=== PATIENT | male | born 1940 | race Caucasian/White ===

== ENCOUNTER 2017-04-09 08:48 | Outpatient (CLI) | payer MEDICARE ==
--- NOTE | 2017-04-09 09:44 | PRG ---
DATE OF SERVICE: 04/09/2017 HISTORY: Mr. Gage Tyler is a very pleasant 76-year-old gentleman who presents to the [facility] for evaluation of an ulceration of the right ankle in the region of the medial malleolus. The p samuel was referred to the Wound Center by Dr. Lavon Bonds. Presently, the patient is receiving t reatment for his right ankle ulceration with the application of new boots 1-2 times per week by Home Health. The patient has no complaints today. He denies any fever or chills. PHYSICAL EXAMINATION: VITAL SIGNS: Temperature 97.8, pulse 73, respirations 18, and blood pressure 143/71. EXTREMITIES: The ulceration of the right ankle in the region of the medial malleolus measures appro ximately 3.9 x 3.6 cm. The dimensions of the wound at the time of the patient's last visit were bashir roximately 4.2 x 4.5 cm. Granulation tissue is present within the wound margins. No purulent drain age is associated with the wound. No erythema of the skin surrounding the wound is present. No mac eration of the skin of the periwound is noted. No edema of the right ankle is appreciated on exam t cris. ASSESSMENT AND PLAN: 1. Varicose veins of right lower extremity with ulceration in a boot application of 1-2 times per w [place] will be continued with the assistance of Home Health. MRI of the right ankle with and without c ontrast revealed findings suggestive of chronic osteitis without osteomyelitis of the medial distal tibia. The patient has been seen in consultation by Infectious Diseases. The patient has been told that antimicrobial therapy is not indicated at the present time. Transcutaneous oxygen mapping of the distal right lower extremity obtained previously showed no evidence of hypoxia in the region of the wound. The patient completed a course of Bactrim DS as previously prescribed. Tissue cultures revealed the growth of Enterococcus species Providencia rettgeri and Finegoldia magna. The patient also completed a course of Augmentin 875/125, #20, 1 p.o. b.i.d. x10 days. Providencia rettgeri was sensitive to Bactrim. I will see Mr. Tyler again in four weeks. 2. Hypertension. 3. Paroxysmal atrial fibrillation. 4. Peripheral vascular disease. 5. Renal cell carcinoma. 6. Adenocarcinoma of the prostate. 7. History of spontaneous pneumothorax. 8. Ischemic cardiomyopathy. 8. Coronary artery disease.
[2017-04-09] MEDS ORDERED: Sodium Chloride 0.9% 15 ML NEB ONE (11:11)
== END 2017-04-09 08:49 | disposition home or self-care (01) ==
LOC: WCC 08:48
PROVIDERS: ATTEND Family Medicine
DX: I83.013 Varicose veins of right lower extremity with ulcer of ankle (principal); L97.319 Non-pressure chronic ulcer of right ankle with unspecified severity; I10 Essential (primary) hypertension; I48.0 Paroxysmal atrial fibrillation; C64.9 Malignant neoplasm of unspecified kidney, except renal pelvis; I73.9 Peripheral vascular disease, unspecified; C61 Malignant neoplasm of prostate; I25.5 Ischemic cardiomyopathy; I25.10 Atherosclerotic heart disease of native coronary artery without angina pectoris
CPT/HCPCS: 29581; A4218

== ENCOUNTER 2017-05-07 08:57 | Outpatient (CLI) | payer MEDICARE ==
--- NOTE | 2017-05-07 10:37 | PRG ---
DATE OF SERVICE: 05/07/2017 HISTORY: Mr. Gage Tyler is a very pleasant 76-year-old gentleman who presents to the Wound Ce nter for evaluation of an ulceration of the right ankle in the region of the medial malleolus. The patient was referred to the Wound Center by Dr. Lavon Bonds. Currently, the patient is receiving treatment for his right ankle ulceration with the application of an Unna boot 2 times per week by [facility]. Mr. Tyler has no complaints today. He denies any fever or chills. PHYSICAL EXAMINATION: VITAL SIGNS: Temperature 97.5, pulse 72, respirations 18, and blood pressure 117/60. EXTREMITIES: The ulceration of the right ankle in the region of the medial malleolus measures appro ximately 3.2 x 2.7 cm. The dimensions of the wound at the time of the patient's visit on 04/09/2017 were approximately 3.9 x 3.6 cm. Granulation tissue is present within the wound margins. No purul ent drainage is associated with the wound. No erythema of the skin surrounding the wound is present . No maceration of the skin of the periwound is noted. No edema of the right ankle is appreciated on exam today. ASSESSMENT AND PLAN: 1. Varicose veins of right lower extremity with ulceration. Unna boot application will be continue d at a frequency of once a week with the assistance of Home Health. MRI of the right ankle with and without contrast revealed findings suggestive of chronic osteitis without osteomyelitis of the medi al distal tibia. The patient has been seen in consultation by Infectious Diseases. The patient has been told that antimicrobial therapy is not indicated at the present time. Transcutaneous oxygen m apping of the distal right lower extremity obtained previously showed no evidence of hypoxia in the region of the wound. I will see Mr. Tyler again in four weeks. 2. Hypertension. 3. Paroxysmal atrial fibrillation. 4. Peripheral vascular disease. 5. Renal cell carcinoma. 6. Adenocarcinoma of the prostate. 7. History of spontaneous pneumothorax. 8. Ischemic cardiomyopathy. 9. Coronary artery disease.
[2017-05-07] MEDS ORDERED: Sodium Chloride 0.9% 15 ML NEB ONE (17:29)
== END 2017-05-07 08:58 | disposition home or self-care (01) ==
LOC: WCC 08:57
PROVIDERS: ATTEND Family Medicine
DX: I83.018 Varicose veins of right lower extremity with ulcer other part of lower leg (principal); C64.9 Malignant neoplasm of unspecified kidney, except renal pelvis; C61 Malignant neoplasm of prostate; I10 Essential (primary) hypertension; I48.0 Paroxysmal atrial fibrillation; I73.9 Peripheral vascular disease, unspecified; I42.9 Cardiomyopathy, unspecified; I25.10 Atherosclerotic heart disease of native coronary artery without angina pectoris
CPT/HCPCS: 97602; A4218

== ENCOUNTER 2017-05-13 05:34 | Observation (INO) | payer MEDICARE ==
[2017-05-13 06:15] LABS: #Basophils 0.1 thou/uL (0.0-0.2); #Eosinphils 0.1 thou/uL (0.0-0.7); #Lymphocytes 1.7 thou/uL (1.20-3.40); #Monocytes 0.8 thou/uL (0.11-0.59); #Neutrophils 3.5 thou/uL (1.40-6.50); %Basophils 1.3 % (0.0-1.0); %Eosinophils 2.2 % (0.0-10.0); %Lymphocytes 27.9 % (21.0-51.0); %Monocytes 12.2 % (0.0-10.0); Hematocrit 41.3 % (42.0-52.0); Mean Platelet Volume 7.6 fL (7.4-10.4); Red Blood Cell (RBC) Count 4.25 mill/uL (4.70-6.10); White Blood Cell (WBC) Count 6.2 thou/uL (4.8-10.8)
[2017-05-13 06:29] LABS: ALT (SGPT) 13 U/L (8-55); AST (SGOT) 27 U/L (5-34); Alkaline Phosphatase 193 U/L (40-150); Anion Gap 19 mmol/L (10-20); BUN (Urea Nitrogen) 13 mg/dL (8.4-25.7); Bilirubin, Total 0.8 mg/dL (0.2-1.2); Calc. Creatinine Clearance 0 mL/min (70-130); Calcium 8.8 mg/dL (7.8-10.44); Carbon Dioxide 16 mmol/L (23-31); Chloride 96 mmol/L (98-107); Estimated GFR-MDRD 65; Globulin 3.3 g/dL (2.4-3.5); Lipase 35 U/L (8-78); Magnesium 1.8 mg/dL (1.6-2.6); Protein, Total 7.2 g/dL (5.8-8.1)
[2017-05-13] MEDS ORDERED: Aspirin 325 MG TAB ONE (06:29)
[2017-05-13 06:31] LABS: Troponin I Less than 0.010 ng/mL (< 0.028)
[2017-05-13] MEDS ORDERED: Nitroglycerin 2% Ointment 1 INCH/1 GM Packet ONE (06:51)
[2017-05-13] MEDS ORDERED: Furosemide 40 MG/4 ML VIAL ONE (06:51)
[2017-05-13] MEDS ORDERED: hydrALAZINE 20 MG/ML VIAL SLOW IVP PRN (07:29)
[2017-05-13] MEDS ORDERED: Famotidine/PF 20 mg/2ml Vial ONE (07:31)
[2017-05-13] MEDS ORDERED: Water For Inject, Bacteriostat 30 ML ONE (07:31)
[2017-05-13] MEDS ORDERED: diphenhydrAMINE 50 MG/ML VIAL ONE (07:31)
[2017-05-13] MEDS ORDERED: methylPREDNISolone Sod Succ/PF 125 MG/2 ML VIAL ONE (07:31)
[2017-05-13] MEDS ORDERED: Benzonatate 100 MG CAP ONE (07:42)
--- NOTE | 2017-05-13 08:11 | RAD ---
CHEST TWO VIEWS: HISTORY: Dyspnea. COMPARISON: Chest, two views, from 10/11/2015. FINDINGS: There is an abnormal extra density along the right heart border. There is also a posterior lower de nsity projecting over the lower thoracic spine. The lungs are osteopenic. There are multiple areas of scarring in the lung apices. IMPRESSION: 1. Accessory density along the right heart border. CT correlation is recommended. 2. Posterior density along the lower thoracic spine. This should also be further interrogated with CT examination. 3. Multiple pleural and parenchymal densities throughout the lungs. 4. Interstitial prominence of the right lower lobe. There is concern for possible obstructing mass with post obstructive pneumonitis. CODE T CODE LN POS: MED
[2017-05-13 09:06] LABS: PTT 35.1 SEC (22.9-36.1); Prothrombin Time 14.8 SEC (12.0-14.7)
--- NOTE | 2017-05-13 09:09 | CT ---
CT ANGIO CHEST WITH IV CONTRAST: HISTORY: Dyspnea. TECHNIQUE: Multiple axial tomograms obtained through the chest with pulmonary angio protocol with multiplanar r econstruction and 3D post processing. FINDINGS: There are small bilateral pleural effusions. Mild bibasilar atelectasis. The pulmonary arteries are well opacified. There is evidence of a pulmonary embolus in the single r ight lower lobe pulmonary artery. There is diffuse alveolar infiltrate seen throughout the right middle lobe, with hazy alveolar opaci ty, with some ground glass and nodular parenchymal opacity noted in the right middle lobe. IMPRESSION: 1. Evidence of a single embolus in the right lower lobe pulmonary artery. 2. Right middle lobe infiltrate. 3. Small bilateral pleural effusion. Findings were relayed to Dr. Soares at the time of the dictation. CODE CR POS: DINORAH
[2017-05-13] MEDS ORDERED: hydrALAZINE 20 MG/ML VIAL ONE (09:23)
[2017-05-13] MEDS ORDERED: Ondansetron ODT 4 MG TAB PO PRN (10:26)
[2017-05-13] MEDS ORDERED: Lorazepam 1 MG TAB PO PRN (10:26)
[2017-05-13] MEDS ORDERED: Enoxaparin Sodium 40 MG/0.4 ML SYRINGE SC SCH (10:26)
[2017-05-13] MEDS ORDERED: HYDROcodone/Acetaminophen 5/325 mg Tablet PO PRN (10:26)
[2017-05-13] MEDS ORDERED: Acetaminophen 325 MG TAB PO PRN (10:26)
[2017-05-13] MEDS ORDERED: HYDROcodone/Acetaminophen 10/325 mg Tablet PO PRN (10:26)
[2017-05-13] MEDS ORDERED: Albuterol Sulfate 2.5 mg/3 ml Neb NEB PRN (10:26)
[2017-05-13 10:39] VITALS: BMI 22.8
[2017-05-13 11:15] LABS: Troponin I Less than 0.010 ng/mL (< 0.028)
[2017-05-13] MEDS ORDERED: Aspirin 81 mg Enteric Coated Tablet PO SCH (11:45)
[2017-05-13] MEDS ORDERED: Carvedilol 6.25 MG TAB PO SCH (11:45)
[2017-05-13] MEDS ORDERED: Dronedarone HCl 400 MG TAB PO SCH (11:45)
[2017-05-13] MEDS: Nitroglycerin 2% Ointment 1 INCH/1 GM Packet TOP SCH ×2 (11:57→17:21)
[2017-05-13] MEDS ORDERED: Levothyroxine Sodium 50 MCG TAB PO SCH (12:00)
[2017-05-13] MEDS ORDERED: Rivaroxaban 15 MG TAB PO SCH (12:00)
[2017-05-13] MEDS: Furosemide 40 MG/4 ML VIAL SLOW IVP SCH ×2 (12:06→17:21)
[2017-05-13] MEDS ORDERED: ISOVUE-370 76%-LOCM 1 ML ONE (15:58)
--- NOTE | 2017-05-13 17:11 | HP ---
DATE OF ADMISSION: 05/13/2017 PRIMARY CARE PHYSICIAN: Stefano Bradshaw M.D. PRIMARY INSURANCE VERIFICATION REPRESENTATIVE: Dr. Lavon Bonds M.D. CHIEF COMPLAINT: Shortness of breath. HISTORY OF PRESENT ILLNESS: Mr. Tyler is a pleasant 76-year-old white male, who describes a 2-week history of increasing shortness of breath. 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 He said it has increased over the last 2 weeks and really worse over t he last 48 hours or so. He has had increased dyspnea on exertion and a nonproductive cough. He den ies any wheezing, but does have some rattling present in his lower chest. He has had no chest pain, no fevers or chills, no nausea or vomiting, no diarrhea or constipation, no GI bleeding, and no hem optysis. He presented to the emergency department and was found to have fairly normal labs, bicarbonate was l ow, BNP was 1500, and he was subsequently admitted for possible CHF. A chest x-ray, to me, looks li ke right lower lobe pneumonia. CT angiogram was ordered by the ER doctor, after I visited the patie nt, and was actually found to have right middle lobe pneumonia and a right lower lobe pulmonary samuel ry embolus. The patient was breathing better when I saw him; he was satting 98% on room air. PAST MEDICAL HISTORY: 1. Alcohol abuse, drinks more than 10 drinks a day. 2. Coronary artery disease. He has had multiple stents in the past. 3. Peripheral vascular disease, status post stent to his right leg several months ago. 4. History of chronic atrial fibrillation. 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 Hyperlipidemia. 6. Renal cell carcinoma, status post nephrectomy. 7. Hypothyroidism. 8. BPH. 9. Gastroesophageal reflux disease. 10. History of prostate cancer, status post TURP. PAST SURGICAL HISTORY: 1. Coronary artery bypass grafting x4 vessels sometime around 1994. 2. Right nephrectomy he thinks around 1999. 3. ORIF of right ankle fracture in 11/2014 with nonhealing wound. 4. Right leg arterial stent. HOME MEDICATIONS: 1. Coreg 12.5 mg p.o. b.i.d. 2. Levothyroxine 50 mcg daily. 3. Pentoxifylline 400 mg daily. 4. Multaq 200 mg p.o. b.i.d. 5. Tamsulosin 0.4 mg p.o. at bedtime. 6. Atorvastatin 20 mg p.o. at bedtime. 7. Protonix 40 mg daily. 8. Aspirin 81 mg daily. 9. Docusate 100 mg daily. ALLERGIES: Possibly to, 1. AMIODARONE. 2. IODINE, a long time ago. FAMILY HISTORY: Negative for clotting or bleeding disorder, no immune dysfunction. SOCIAL HISTORY: Negative for alcohol. He had smoked past tobacco for 9 years from the age of [age] , upwards of 2 packs per day. He used no IV drugs. He is . His accompanies him. REVIEW OF SYSTEMS: A 10-point review of systems was performed, negative for all other systems excep t as stated as per HPI. PHYSICAL EXAMINATION: VITAL SIGNS: Temperature 97.5, pulse 78, blood pressure 175/97, respiratory rate 15, satting 100% o n room air. He is 98% on room air when I saw him. GENERAL: He is awake. He is alert. He is oriented x3. He is an old thin white male, appears to b e in no acute distress. HEENT: Normocephalic, atraumatic. Pupils equal, round, and reactive to light bilaterally, Mucous m embranes moist. He had no visible lesion. No thrush. NECK: Supple, without lymphadenopathy, JVD, thyromegaly. He has normal carotid upstrokes. CARDIOVASCULAR: Normal S1 and decreased S2. He has a holosystolic murmur best heard at the right u pper sternal border. The murmur does not radiate. LUNGS: Have a prolonged expiratory phase with diffuse expiratory wheezes. He has got crackles pres ent in the right posterior and middle lung field. Left side is clear. ABDOMEN: Soft. It is nontender and nondistended. He has no masses, no organomegaly. Normoactive bowel sounds are heard. EXTREMITIES: Show no cyanosis and no clubbing. He has got edema of the right lower extremity. He is currently wrapped in Ismael wrap. This wrap was removed revealing a medial surgical wound that has been slow to heal, but is granulating well at this point. SKIN: Otherwise warm, moist, and well perfused without any other rashes or lesions. MUSCULOSKELETAL: Exam is normal to inspection. He has no inflamed joints, no palpable joint effusi ons. NEUROLOGIC: Cranial nerves II-XII are grossly intact without any focal neurologic deficits. Telemetry monitoring shows a controlled atrial fibrillation. LABORATORY DATA: Basic metabolic profile showed a sodium low at 126, bicarbonate low at 16, creatin ine of 1.10, otherwise normal. His troponin I was negative. TSH elevated at 7.98 and BNP elevated at 1549. Liver function normal. CBC showed a white count of 6.2, hemoglobin 13.3, hematocrit 40.3, and platelet count is 178,000. A chest x-ray shows a diffuse bilateral edema, and a possible right lower lobe infiltrate superimposed. A CT angiogram confirmed the right-sided infiltrate/opacity, but also showed a right lower lobe pulm onary artery embolus. ASSESSMENT AND PLAN: 1. Acute on chronic congestive heart failure: I am not sure it has been previously diagnosed or no t. We will get a 2D echocardiogram. The BNP is elevated. We will schedule him with some IV Lasix and we will watch him overnight. Repeat BNP in the morning. Follow up on the results of the echoca rdiogram. Later in the day, I found the patient normally was supposed to be on Lasix daily, but has been off of that for over a month. I have to check with his primary doctor to find out why. 2. Acute exacerbation of chronic obstructive pulmonary disease: Patient has no previous diagnosis, but given his history, likely he has some underlying chronic obstructive pulmonary disease. I will place him on steroids and nebulizer treatments. We will follow up on this in the morning. 3. Right lower lobe pneumonia: Community-acquired. We will start the patient on levofloxacin 500 mg daily. 4. Alcohol abuse: No signs of withdrawal at this time. 5. Hypertension: We will get serial cardiac biomarkers and continue his home medications. 6. History of chronic atrial fibrillation: Not currently on anticoagulation. Certainly could be a source for his pulmonary embolus. We will start him on Xarelto once he gets to the floor. 7. Right lower lobe pulmonary embolus: Xarelto as above. 8. History of hyperlipidemia: We will continue his atorvastatin. 9. Hypothyroidism, on levothyroxine. 10. Benign prostatic hypertrophy, on Flomax. 11. Gastroesophageal reflux disease, on Protonix. Patient does not meet inpatient status at this point. Place him on observation and watch him overni ght. If he is better, maybe we will send him home, if not then we will admit at that point.
[2017-05-13] MEDS: Carvedilol 6.25 MG TAB PO SCH (17:20)
[2017-05-13] MEDS: Dronedarone HCl 400 MG TAB PO SCH (17:21)
[2017-05-13 19:33] LABS: Troponin I 0.014 ng/mL (< 0.028)
[2017-05-13] MEDS ORDERED: Tamsulosin HCl 0.4 MG CAP PO SCH (21:00)
[2017-05-13] MEDS ORDERED: Atorvastatin Calcium 20 MG TAB PO SCH (21:00)
[2017-05-13] MEDS: Rivaroxaban 15 MG TAB PO SCH (22:16)
[2017-05-14] MEDS: Nitroglycerin 2% Ointment 1 INCH/1 GM Packet TOP SCH ×2 (00:28→09:51)
[2017-05-14] MEDS: Furosemide 40 MG/4 ML VIAL SLOW IVP SCH (00:30)
[2017-05-14 04:35] LABS: #Basophils 0.1 thou/uL (0.0-0.2); #Lymphocytes 0.7 thou/uL (1.20-3.40); #Monocytes 0.2 thou/uL (0.11-0.59); #Neutrophils 4.5 thou/uL (1.40-6.50); %Eosinophils 0.1 % (0.0-10.0); %Lymphocytes 13.3 % (21.0-51.0); %Monocytes 3.3 % (0.0-10.0); Hematocrit 41.1 % (42.0-52.0); Mean Platelet Volume 7.4 fL (7.4-10.4); Red Blood Cell (RBC) Count 4.33 mill/uL (4.70-6.10); White Blood Cell (WBC) Count 5.4 thou/uL (4.8-10.8)
[2017-05-14 04:51] LABS: Anion Gap 17 mmol/L (10-20); BUN (Urea Nitrogen) 25 mg/dL (8.4-25.7); Calc. Creatinine Clearance 36 mL/min (70-130); Carbon Dioxide 25 mmol/L (23-31); Chloride 90 mmol/L (98-107); Estimated GFR-MDRD 45
[2017-05-14] MEDS ORDERED: Levothyroxine Sodium 50 MCG TAB PO SCH (06:00)
[2017-05-14 07:59] VITALS: TEMP 97.7
[2017-05-14] MEDS ORDERED: Aspirin 81 mg Enteric Coated Tablet PO SCH (09:00)
[2017-05-14] MEDS: Rivaroxaban 15 MG TAB PO SCH (09:39)
[2017-05-14] MEDS: Dronedarone HCl 400 MG TAB PO SCH (09:40)
[2017-05-14] MEDS: Carvedilol 6.25 MG TAB PO SCH (09:44)
[2017-05-14 09:46] VITALS: BP 152/83
--- NOTE | 2017-05-14 12:53 | DIS ---
DATE OF ADMISSION: 05/13/2017 DATE OF DISCHARGE: 05/14/2017 DISCHARGE DIAGNOSES: 1. Acute right lower lobe pulmonary artery embolism. 2. Acute exacerbation of chronic obstructive pulmonary disease. 3. Acute diastolic congestive heart failure. 4. Pulmonary hypertension. 5. Alcohol abuse. 6. Right lower lobe community-acquired pneumonia. CONSULTATIONS: None. PROCEDURES: 2D echocardiogram on 05/13/2017. HOSPITAL COURSE: Mr. Tyler is a pleasant 76-year-old white male who presented to the emergency dep artment for increasing shortness of breath over 2-week period. 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 There he had diffuse expiratory and inspiratory wheezing, he had an elevated BNP at 1500 and chest x -ray showed pulmonary edema and a possible right-sided pneumonia. Incidentally, a CT angiogram was ordered, but we were called for admission. HOSPITAL COURSE: The patient was seen and examined in the ER, the patient looked relatively well. He did have diffuse expiratory and inspiratory wheezing and crackles. He had trace edema. He was admitted for diagnosis of acute COPD exacerbation with community-acquired pneumonia and possi ble CHF exacerbation. CT angiogram was ordered and was followed up on and did show a right lower lo be pulmonary artery embolus. The patient was continued on antibiotics, IV steroids, nebulizer treat ments, Lasix, and was started on Xarelto 15 mg b.i.d. for 7 days to transition to 20 mg daily. On further conversation with the patient, it was noted that he was supposed to be on Lasix daily, bu t has run out over a month ago, at one time been on Xarelto was taken off because he had some hematu hiren. He had no fevers or chills, minimal cough without sputum production. No nausea, vomiting, diarrhea, constipation. Overnight, he did well and he was able to get up with the nurses and walk without dropping his oxyge n saturations and remained 90%-100% on room air. His breathing was markedly improved and he was sta ble for discharge with outpatient followup. PHYSICAL EXAMINATION: The patient was seen and examined on the day of discharge. Discharge plan an d disposition was discussed with the patient, his , face to face at the bedside. DISCHARGE MEDICATIONS: 1. Albuterol sulfate 90 mcg inhaler 1-2 puffs every 4 hours as needed for shortness of breath. A p rescription for one inhaler with 2 refills sent. 2. Combivent inhaler 2 puffs q.i.d., prescription for one inhaler with 2 refills sent. 3. Levofloxacin 500 mg p.o. daily for 6 more days. Prescription sent. 4. Xarelto starter pack take 50 mg twice a day for a total of 7 days, then 20 mg daily thereafter. 5. Flomax 0.4 mg p.o. at bedtime. 6. Prednisone 10 mg tablets, 40 mg daily to decrease by 10 mg every third day until he is tapered o ff. Prescription sent. 7. Lipitor 20 mg p.o. at bedtime. 8. Carvedilol 12.5 mg p.o. b.i.d. 9. Multaq 200 mg p.o. b.i.d. 10. Advil 40 mg p.o. b.i.d. 11. Levothyroxine 50 mcg daily. 12. Protonix 40 mg daily. 13. Pentoxifylline 400 mg daily. FOLLOWUP APPOINTMENTS 1. PCP within a week. 2. He is supposed to see his vascular surgeon, Dr. Bonds in a week or two. 3. Referral to a tubing tester as soon as feasible. DISCHARGE CONDITION: Stable. DISPOSITION: Being discharged home via private vehicle. INSTRUCTIONS: To return to the emergency department for increased shortness of breath, worsening co ndition, uncontrollable fevers, or chest pain.
--- NOTE | 2017-05-16 20:12 | EKG ---
Test Reason : SOB Blood Pressure : / mmHG Vent. Rate : 078 BPM Atrial Rate : 057 BPM P-R Int : 000 ms QRS Dur : 120 ms QT Int : 450 ms P-R-T Axes : 000 086 139 degrees QTc Int : 513 ms Atrial fibrillation with premature ventricular or aberrantly conducted complexes Right bundle branch block Abnormal ECG Confirmed by AMARI KENNEDY D.O. ([id number]), assignment editor PAULINA DENNY ([id number]) on 05/16/2017 8:11:52 PM Referred By: Confirmed By:AMARI KENNEDY D.O.
== END 2017-05-14 12:08 | disposition home or self-care (01) ==
LOC: ERS 05:34 → 2SW 07:18
PROVIDERS: ADMIT Internal Medicine Infectious Disease; ATTEND Internal Medicine Infectious Disease
DX: I26.99 Other pulmonary embolism without acute cor pulmonale (principal); J44.1 Chronic obstructive pulmonary disease with (acute) exacerbation; I27.20 Pulmonary hypertension, unspecified; F10.10 Alcohol abuse, uncomplicated; J18.9 Pneumonia, unspecified organism; R60.9 Edema, unspecified; I25.10 Atherosclerotic heart disease of native coronary artery without angina pectoris; I73.9 Peripheral vascular disease, unspecified; E03.9 Hypothyroidism, unspecified; N40.0 Benign prostatic hyperplasia without lower urinary tract symptoms; K21.9 Gastro-esophageal reflux disease without esophagitis; I48.2 Chronic atrial fibrillation; F17.210 Nicotine dependence, cigarettes, uncomplicated; I50.33 Acute on chronic diastolic (congestive) heart failure; I11.0 Hypertensive heart disease with heart failure; Z79.899 Other long term (current) drug therapy; Z88.8 Allergy status to other drugs, medicaments and biological substances; Z91.041 Radiographic dye allergy status; Z95.1 Presence of aortocoronary bypass graft; Z90.5 Acquired absence of kidney; Z90.79 Acquired absence of other genital organ(s); Z98.890 Other specified postprocedural states; Z85.46 Personal history of malignant neoplasm of prostate; Z85.528 Personal history of other malignant neoplasm of kidney; Z87.81 Personal history of (healed) traumatic fracture
CPT/HCPCS: 71020; 71275; 80048; 82553 ×2; 83690; 83735; 83880; 84484 ×2; 85025; 85610; 85730; 93005; 93306; 94640 ×3; 96374; 96375 ×2; 96376 ×2; 97139 ×2; 99285; G0378; 36415; 80053; 84443; A4216; J0360; J1200; J1940; J2920; J2930; J7620; Q0162; S0028

== ENCOUNTER 2017-05-28 08:55 | Outpatient (CLI) | payer MEDICARE ==
[~2017-05-28 08:55] MED LIST: Sodium Chloride 0.9% 15 ML NEB ONE
--- NOTE | 2017-05-28 10:17 | PRG ---
DATE OF SERVICE: 05/28/2017 HISTORY: Mr. Gage Tyler is a very pleasant 76-year-old gentleman who presents to the [facility] for evaluation of an ulceration of the right ankle in the region of the medial malleolus. The pa karie was referred to the Wound Center by Dr. Lavon Bonds. Presently, the patient is receiving tejinder atment for his right ankle ulceration with the application of an Unna boot once a week by Home Health . The patient has no complaints today. He denies any fever or chills. Since the patient's last vis it to the Wound Center, Mr. Tyler was admitted to [facility] for a right lowe r lobe pulmonary artery embolism. The patient is now taking Xarelto. PHYSICAL EXAMINATION: VITAL SIGNS: Temperature 97.4, pulse 81, respirations 18, blood pressure 124/58. EXTREMITIES: The ulceration of the right ankle in the region of the medial malleolus measures approx imately 2.5 x 2.2 cm. The dimensions of the wound at the time of the patient's visit on 05/07/2017 w ere approximately 3.2 x 2.7 cm. Granulation tissue is present within the wound margins. No purulent drainage is associated with the wound. No erythema of the skin surrounding the wound is present. N o maceration of the skin of the delta-wound is noted. No significant edema of the right foot or lower leg is present on exam today. ASSESSMENT AND PLAN: 1. Varicose veins of right lower extremity with ulceration. Unna boot application will be continued at a frequency of once per week with the assistance of Home Health. I will see Mr. Tyler again in four weeks. 2. Hypertension. 3. Paroxysmal atrial fibrillation. 4. Peripheral vascular disease. 5. Renal cell carcinoma. 6. Adenocarcinoma of the prostate. 7. History of spontaneous pneumothorax. 8. Ischemic cardiomyopathy. 9. Coronary artery disease.
== END 2017-05-28 08:56 | disposition home or self-care (01) ==
LOC: WCC 08:55
PROVIDERS: ATTEND Family Medicine
DX: I83.013 Varicose veins of right lower extremity with ulcer of ankle (principal); I10 Essential (primary) hypertension; I48.0 Paroxysmal atrial fibrillation; I73.9 Peripheral vascular disease, unspecified; C64.9 Malignant neoplasm of unspecified kidney, except renal pelvis; C61 Malignant neoplasm of prostate; I25.5 Ischemic cardiomyopathy; I25.10 Atherosclerotic heart disease of native coronary artery without angina pectoris
CPT/HCPCS: 97602; A4218

== ENCOUNTER 2017-06-25 08:30 | Outpatient (CLI) | payer MEDICARE ==
[~2017-06-25 08:30] MED LIST changes: +Lidocaine 2% Jelly 5 ML TUBE ONE
--- NOTE | 2017-06-25 09:30 | PRG ---
DATE OF SERVICE: 06/25/2017 HISTORY: Mr. Walter. Laurence Tyler is a very pleasant 76-year-old gentleman who presents to the Wound Ce nter for evaluation of an ulceration of the right ankle in the region of the medial malleolus. 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 Lavon Bonds. Currently, the patient is receiving tr eatment for his right ankle ulceration with the application of an Unna boot once a week by home healt h. Mr. Tyler has no complaints today. He denies any fever or chills. The patient was recently adm it[facility] to [facility] for a right lower lobe pulmonary artery embolism. The pat ient continues to take Xarelto. PHYSICAL EXAMINATION: VITAL SIGNS: Pulse 75, respirations 16, and blood pressure 153/80. EXTREMITIES: The ulceration of the right ankle in the region of the medial malleolus measures approx imately 2.1 x 1.5 cm. The dimensions of the wound at the time of the patient's visit on 05/28/2017 w ere approximately 2.5 x 2.2 cm. Granulation tissue is present within the wound margins. No purulent drainage is associated with the wound. No erythema of the skin surrounding the wound is present. N o maceration of the skin of the periwound is noted. No significant edema of the right foot or lower leg is present on exam today. ASSESSMENT AND PLAN: 1. Varicose veins of right lower extremity with ulceration. Unna boot application will be continued at a frequency of once per week with the assistance of Home Health. I will see Mr. Tyler again in four weeks. 2. Hypertension. 3. Paroxysmal atrial fibrillation. 4. Peripheral vascular disease. 5. Renal cell carcinoma. 6. Adenocarcinoma of the prostate. 7. History of spontaneous pneumothorax. 8. Ischemic cardiomyopathy. 9. Coronary artery disease.
== END 2017-06-25 08:31 | disposition home or self-care (01) ==
LOC: WCC 08:30
PROVIDERS: ATTEND Family Medicine
DX: I83.018 Varicose veins of right lower extremity with ulcer other part of lower leg (principal); L97.919 Non-pressure chronic ulcer of unspecified part of right lower leg with unspecified severity; I48.0 Paroxysmal atrial fibrillation; I73.9 Peripheral vascular disease, unspecified; C64.9 Malignant neoplasm of unspecified kidney, except renal pelvis; C61 Malignant neoplasm of prostate; I25.5 Ischemic cardiomyopathy; I25.10 Atherosclerotic heart disease of native coronary artery without angina pectoris; I10 Essential (primary) hypertension
CPT/HCPCS: 97602; A4218

== ENCOUNTER 2017-07-25 06:20 | Inpatient (IN) | payer MEDICARE ==
[2017-07-25 07:16] LABS: Hemoglobin 11.4 g/dL (14.0-18.0); Mean Corpuscular HGB CONC 31.7 g/dL (32.0-36.0); Mean Corpuscular Hemoglobin 27.5 pg (27.0-31.0); Mean Corpuscular Volume 86.7 fl (80.0-94.0); Mean Platelet Volume 9.6 fL (7.4-10.4); Platelet Count 151 thou/uL (130-400); RBC Distribution Width 17.6 % (11.5-14.5); Red Blood Cell (RBC) Count 4.17 mill/uL (4.70-6.10); White Blood Cell (WBC) Count 3.6 thou/uL (4.8-10.8)
[2017-07-25 07:29] LABS: CKMB 1.6 ng/mL (0-6.6); Troponin I 0.017 ng/mL (< 0.028)
[2017-07-25 07:33] LABS: ALT (SGPT) 11 U/L (8-55); AST (SGOT) 28 U/L (5-34); Albumin 4.1 g/dL (3.4-4.8); Alkaline Phosphatase 103 U/L (40-150); Anion Gap 18 mmol/L (10-20); BUN (Urea Nitrogen) 18 mg/dL (8.4-25.7); Bilirubin, Total 0.9 mg/dL (0.2-1.2); CK (CPK) 126 U/L (30-200); Calc. Creatinine Clearance 0 mL/min (70-130); Calcium 9.1 mg/dL (7.8-10.44); Carbon Dioxide 18 mmol/L (23-31); Chloride 95 mmol/L (98-107); Estimated GFR-MDRD 54; Globulin 2.6 g/dL (2.4-3.5); Glucose 92 mg/dL (83-110); Potassium 4.7 mmol/L (3.5-5.1); Protein, Total 6.7 g/dL (5.8-8.1); Sodium 126 mmol/L (136-145)
[2017-07-25 07:40] LABS: INR-International Normal Ratio 2.3; PTT 46.8 SEC (22.9-36.1); Prothrombin Time 25.7 SEC (12.0-14.7)
[2017-07-25 07:44] LABS: Anisocytosis SLIGHT = 6-15 cells (100X) (0-5/hpf); Band 1 % (5-11); Hypochromia SLIGHT = 6-15 cells (100X) (0-5/hpf); Lymphocytes 42 % (21-51); MDiff Complete? YES; Monocytes 7 % (0-10); Neutrophil 50 % (42-75); PLT Morphology Comment Appears Adequate; Polychromasia SLIGHT = 2-3 cells (100X) (0-2/hpf)
[2017-07-25] MEDS ORDERED: Albuterol Sulfate 2.5 mg/3 ml Neb ONE (09:36)
[2017-07-25] MEDS ORDERED: Albuterol Sulfate 2.5 mg/0.5 ml Neb ONE (09:36)
[2017-07-25] MEDS ORDERED: Acetaminophen 325 MG TAB PO PRN (12:46)
[2017-07-25] MEDS ORDERED: Ondansetron HCl/PF 4 MG/2 ML Vial IVP PRN (12:46)
[2017-07-25] MEDS ORDERED: Ondansetron ODT 4 MG TAB SL PRN (12:46)
[2017-07-25] MEDS ORDERED: Sodium Chloride 0.9% 1,000 ML IV SCH (13:00)
[2017-07-25] MEDS ORDERED: hydrALAZINE 20 MG/ML VIAL SLOW IVP PRN (14:46)
[2017-07-25] MEDS ORDERED: cloNIDine 0.1 MG TAB PO PRN (14:46)
[2017-07-25] MEDS ORDERED: Diabetic Tussin 200 MG/10 ML UDCUP PO PRN (14:46)
[2017-07-25] MEDS ORDERED: Ondansetron ODT 4 MG TAB PO PRN (14:46)
[2017-07-25] MEDS ORDERED: PROVENTIL INHALER 6.7 G (200 INHALATIONS) INH PRN (15:00)
--- NOTE | 2017-07-25 15:40 | HP ---
DATE OF ADMISSION: 07/25/2017 PRIMARY CARE PHYSICIAN: Stefano Bradshaw M.D. CHIEF COMPLAINT: Shortness of breath and body aches. HISTORY OF PRESENT ILLNESS: This is a 76-year-old male who presents to [facility] complaining of 3-4 day history of shortness of breath, cough, body aches, general weak ness and malaise. The patient states the symptoms began somewhat insidiously with increased cough, c hest tightness, and increased use of his nebulizer treatments at home. The patient denies any measur ed fever, but states he felt warm. The patient apparently sought medical care at his primary care pr ovider's office at which point patient was placed on Augmentin. The patient states he has been on th e antibiotic therapy for approximately 48 hours, but felt like his symptoms progressed. The patient denied any known sick contacts or exposure history and states his immunizations are current including influenza vaccine. The patient admits to some productive cough, but no blood in the sputum. The pa tient denies any change to his bowel habits. Patient admits to associated poor appetite, decreased e nergy level and ambulation at home. The patient denied any recent falls, unilateral weakness, diffic ulty with speech or urination. The patient was notably admitted to [facility] in 05/2017, diagnosed with community-acquired right lower lobe pneumonia in addition to a right lowe r lobe pulmonary embolus. The patient was treated with Xarelto as well as antibiotic therapy for dawit pected pneumonia. In the emergency room, the patient underwent general evaluation with influenza caryn al swab positive for influenza A. The patient received IV normal saline, bronchodilator therapy and was transferred to the medical floor for evaluation. PAST MEDICAL HISTORY: 1. History of alcohol abuse. 2. Coronary artery disease. 3. Peripheral vascular disease. 4. History of chronic atrial fibrillation. 5. Right lower lobe pulmonary artery embolism. 6. Hyperlipidemia. 7. Renal cell carcinoma, status post nephrectomy. 8. Hypothyroidism. 9. Benign prostatic hypertrophy. 10. Gastroesophageal reflux disease. 11. Diastolic dysfunction with preserved ejection fraction of 50%-55%. 12. History of prostate cancer, status post TURP. PAST SURGICAL HISTORY: 1. Status post coronary artery bypass grafting x4 vessels. 2. Status post right nephrectomy. 3. Status post open reduction and internal fixation of right ankle fracture. 4. Status post right lower extremity arterial stent placement. CURRENT MEDICATIONS: 1. ProAir RespiClick 90 mcg inhaled q.4 hours p.r.n. 2. Augmentin 500/125 mg 1 tab p.o. b.i.d. 3. Lipitor 20 mg p.o. at bedtime. 4. Coreg 12.5 mg p.o. b.i.d. 5. Multaq 200 mg p.o. b.i.d. 6. Lasix 20 mg 1 tab p.o. daily. 7. Combivent metered dose inhaler 2 puffs inhaled q.i.d. 8. Levothyroxine 50 mcg 1 tab p.o. daily. 9. Protonix 40 mg 1 tab p.o. daily. 10. Pentoxifylline 400 mg p.o. daily. 11. Potassium chloride 20 mEq p.o. daily. 12. Xarelto, dose unknown. 13. Flomax 0.4 mg p.o. at bedtime. ALLERGIES: AMIODARONE and IODINE. FAMILY HISTORY: No inheritable diseases per patient report. SOCIAL HISTORY: , residing in [place], [place]. Remote history of tobacco use. Alcohol use d aily. No illicit drug use. REVIEW OF SYSTEMS: The following complete review of systems was negative, unless otherwise mentioned in the HPI or below: Constitutional: Weight loss or gain, ability to conduct usual activities. Skin: Rash, itching. Eyes: Double vision, pain. ENT/Mouth: Nose bleeding, neck stiffness, pain, tenderness. Cardiovascular: Palpitations, dyspnea on exertion, orthopnea. Respiratory: Shortness of breath, wheezing, cough, hemoptysis, fever or night sweats. Gastrointestinal: Poor appetite, abdominal pain, heartburn, nausea, vomiting, constipation, or diarr hea. Genitourinary: Urgency, frequency, dysuria, nocturia. Musculoskeletal: Pain, swelling. Neurologic/Psychiatric: Anxiety, depression. Allergy/Immunologic: Skin rash, bleeding tendency. Otherwise negative except as stated per HPI. PHYSICAL EXAMINATION: VITAL SIGNS: On admission, blood pressure 125/83, pulse 91, respiratory rate 18, temperature 98.4 de grees Fahrenheit, O2 saturation 97% on room air. GENERAL APPEARANCE: This is an ill-appearing, frail 76-year-old male, alert and responsive . HEENT: Pupils are equal, round, and reactive to light and accommodation. Extraocular muscles are in tact. No scleral icterus, no conjunctival injection. Nares patent. OP is clear. Oral mucosa is dr y appearing. NECK: Supple, no cervical adenopathy, no thyromegaly, no carotid bruits, no JVD appreciated. Cervic al spine with full active and passive range of motion. No meningeal signs noted. CHEST: Diminished breath sounds in the lower third of bilateral lung haile. Expiratory wheezing no antoine. Diminished airflow generally. CARDIOVASCULAR: S1 and S2 with a 2/6 systolic ejection murmur in the right upper sternal border. ABDOMEN: Flat, soft, nontender, and nondistended. Bowel sounds are positive in all four quadrants. There is no hepatosplenomegaly, no abdominal bruits, no rebound or guarding appreciated. EXTREMITIES: Warm and dry with fair turgor. No clubbing, cyanosis or asymmetric edema appreciated. Pulses palpable distally at the dorsalis pedis, posterior tibial, and popliteal arteries bilaterally . Capillary refill less than 2 seconds. NEUROLOGIC: Cranial nerves II-XII are grossly intact. No focal or lateralizing signs appreciated. PERTINENT LABORATORY DATA AND X-RAY FINDINGS: Sodium 126, potassium 4.7, chloride 95, CO2 of 18, BUN 18, creatinine 1.28 with estimated GFR of 54, glucose 92, calcium 9.1. LFTs within normal limits. BNP 1147, previously noted 1549 on 05/13/2017. Troponin I negative x1. CBC showed white blood cell count of 3.6, hemoglobin 11, hematocrit 36, MCV 87, platelet count 151 with 50% neutrophils. PT 25.7 , INR 2.3, PTT 46.8. Influenza A antigen positive on 07/25/2017. Stool guaiac positive x1 on 2017. EKG dated 07/25/2017 by my interpretation shows atrial fibrillation with heart rates in the lo w 100s. Normal axis. Right bundle branch block pattern noted. ASSESSMENT AND PLAN: 1. Influenza A positive. The patient will be admitted to the medical floor. We will continue Tamif kat 75 mg p.o. b.i.d. Respiratory isolation. Continue general pulmonary supportive measures. 2. General weakness secondary to #1. We will obtain PT evaluation for general functional assessment and ambulatory status. General fall risk precautions. 3. Hyponatremia. Acute/subacute after reviewing medical records dating back to 2011. We will lanie nue low volume normal saline and repeat sodium level in the a.m. 4. Chronic normocytic anemia with guaiac positive stool. We will hold home regimen of Xarelto. Rep eat guaiac study. Consider gastrointestinal evaluation if active bleeding noted. Continue Pepcid 20 mg p.o. b.i.d. 5. Chronic atrial fibrillation with variable rate. We will continue Coreg 12.5 mg p.o. b.i.d. Cont inue rate control measures. 6. Dehydration. We will continue intravenous normal saline at 75 mL per hour. Continue to monitor urine output and daily weight. 7. Prophylaxis. Sequential compression devices while in bed. Pepcid 20 mg p.o. b.i.d. Respiratory precautions. 8. Code status is FULL. Surrogate medical decision maker is patient's spouse.
--- NOTE | 2017-07-25 16:04 | RAD ---
CHEST ONE VIEW 07/25/17 HISTORY: Cough. Influenza. COMPARISON: Chest one view, 10/11/15. FINDINGS: Heart size is enlarged. Right basilar air space opacities present. Mild blunting right lateral costop hrenic sulcus. Also mild blunting of the left lateral costophrenic sulcus. There appears to be some s carring in the right upper lobe with some pleural thickening. There is distal abdominal ectasia. IMPRESSION: 1. Cardiomegaly with small bilateral effusions. 2. Right lower lobe air space opacity may reflect early consolidation. 3. Peripheral right upper lobe scarring and pleural thickening. POS: [facility]
[2017-07-25] MEDS: Dronedarone HCl 400 MG TAB PO SCH (17:47)
[2017-07-25] MEDS: Sodium Chloride 0.9% 1,000 ML IV SCH (17:48)
[2017-07-25] MEDS ORDERED: Melatonin 3 MG TAB PO SCH (20:15)
[2017-07-25] MEDS: Carvedilol 25 MG TAB PO SCH (20:37)
[2017-07-25] MEDS: Oseltamivir 75 MG CAP PO SCH (20:37)
[2017-07-25] MEDS: Famotidine 20 MG TAB PO SCH (20:37)
[2017-07-25] MEDS: Acetaminophen 500 MG TAB PO PRN (20:37)
[2017-07-25] MEDS: Tamsulosin HCl 0.4 MG CAP PO SCH (20:38)
[2017-07-25] MEDS ORDERED: FLU VACC TS2017-18 (>65YR) 0.5 ML SYRINGE IM ONE (21:00)
[2017-07-26] MEDS: Sodium Chloride 0.9% 1,000 ML IV SCH ×3 (03:00→15:45)
[2017-07-26 04:24] LABS: ALT (SGPT) 13 U/L (8-55); AST (SGOT) 25 U/L (5-34); Albumin 3.4 g/dL (3.4-4.8); Alkaline Phosphatase 82 U/L (40-150); Anion Gap 13 mmol/L (10-20); BUN (Urea Nitrogen) 19 mg/dL (8.4-25.7); Bilirubin, Total 0.7 mg/dL (0.2-1.2); Calc. Creatinine Clearance 43 mL/min (70-130); Calcium 8.2 mg/dL (7.8-10.44); Carbon Dioxide 21 mmol/L (23-31); Chloride 100 mmol/L (98-107); Estimated GFR-MDRD 52; Globulin 1.8 g/dL (2.4-3.5); Glucose 99 mg/dL (83-110); Potassium 4.6 mmol/L (3.5-5.1); Protein, Total 5.2 g/dL (5.8-8.1); Sodium 129 mmol/L (136-145)
[2017-07-26 04:41] LABS: Acanthocytes SLIGHT = 1-5 cells (100X) (None Seen); Anisocytosis SLIGHT = 6-15 cells (100X) (0-5/hpf); Band 3 % (5-11); Hemoglobin 9.6 g/dL (14.0-18.0); Hypochromia SLIGHT = 6-15 cells (100X) (0-5/hpf); Lymphocytes 32 % (21-51); MDiff Complete? YES; Mean Corpuscular HGB CONC 31.9 g/dL (32.0-36.0); Mean Corpuscular Hemoglobin 27.7 pg (27.0-31.0); Mean Corpuscular Volume 86.8 fl (80.0-94.0); Mean Platelet Volume 9.2 fL (7.4-10.4); Monocytes 10 % (0-10); Neutrophil 51 % (42-75); PLT Morphology Comment Appears Adequate; Platelet Count 126 thou/uL (130-400); RBC Distribution Width 17.2 % (11.5-14.5); Reactive Lymphocytes 4 % (0-10); Red Blood Cell (RBC) Count 3.47 mill/uL (4.70-6.10); White Blood Cell (WBC) Count 3.3 thou/uL (4.8-10.8)
[2017-07-26] MEDS: Levothyroxine Sodium 50 MCG TAB PO SCH (05:10)
[2017-07-26] MEDS: Dronedarone HCl 400 MG TAB PO SCH ×2 (07:53→17:25)
[2017-07-26] MEDS: Carvedilol 25 MG TAB PO SCH ×2 (07:54→21:05)
[2017-07-26] MEDS: Potassium Chloride 20 MEQ TAB PO SCH (07:55)
[2017-07-26] MEDS: Furosemide 20 MG TAB PO SCH (07:55)
[2017-07-26] MEDS: predniSONE 20 MG TAB PO SCH (07:55)
[2017-07-26] MEDS: Famotidine 20 MG TAB PO SCH (07:55)
[2017-07-26] MEDS: Oseltamivir 75 MG CAP PO SCH ×2 (07:56→21:05)
--- NOTE | 2017-07-26 12:12 | PDOC.PN ---
- Subjective Encounter Start Date: 07/26/17 Encounter Start Time: 11:50 Subjective: f/u for Influenza A on Tamiflu. Feeling better overall but still weak and -: coughing. No fever. Appetite improving slowly. - Objective Resuscitation Status: Resuscitation Status FULL:Full Resuscitation MAR Reviewed: Yes Vital Signs & Weight: Vital Signs (12 hours) Temp Pulse Resp BP Pulse Ox 07/26/17 11:45 98.1 F 87 20 126/82 99 07/26/17 11:25 84 16 07/26/17 08:33 83 16 07/26/17 08:03 97.2 F L 83 24 H 130/85 92 L Weight Weight 146 lb 8 oz I&O: 07/25/17 07/26/17 07/27/17 06:59 06:59 06:59 Intake Total 1979 Balance 1979 Result Diagrams: 07/26/17 03:55 07/26/17 03:55 Additional Labs: Microbiology 07/25/17 09:50 Stool - Pending Stool Occult Blood (ELLIOT) - Final 07/25/17 07:10 Nasal swab Influenza Types A,B Direct EIA - Final 07/25/17 07:21 Venous blood - Left Hand Blood Culture - Preliminary Specimen has been received and culture in progress. No Growth to date. 07/25/17 07:07 Venous blood - Right Arm Blood Culture - Preliminary Specimen has been received and culture in progress. No Growth to date. Laboratory Tests 07/25/17 06:40 Hgb 11.4 L Plt Count 151 Phys Exam - Physical Examination alert, responsive HEENT: PERRLA, oral pharynx no lesions Neck: no JVD, supple scattered coarse sounds Cardiovascular: irregular Gastrointestinal: soft, non-tender, no distention, positive bowel sounds Musculoskeletal: no edema, pulses present Neurological: normal sensation, moves all 4 limbs Psychiatric: A&O x 3 Skin: normal turgor, cap refill <2 seconds Dx/Plan (1) Influenza A Code(s): J10.1 - FLU DUE TO OTH IDENT INFLUENZA VIRUS W OTH RESP MANIFEST Status: Acute Comment: Continue Tamiflu 75mg BID, respiratory isolation (2) General weakness Code(s): R53.1 - WEAKNESS Status: Acute Comment: Secondary to #1 (3) Dehydration Code(s): E86.0 - DEHYDRATION Status: Acute Comment: Resolving, continue IVF' s another 24h then d/c (4) Guaiac positive stools Status: Acute Comment: hx of GI bleed currently on Trental, Prednisone and Xarelto. 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
[2017-07-26] MEDS ORDERED: Cepastat Lozenges 1 LOZ PO PRN (12:18)
[2017-07-26] MEDS ORDERED: Guaifenesin DM 100-10/5 ML UDCUP PO PRN (12:18)
[2017-07-26] MEDS ORDERED: GoLYTELY 4,000 ml Bottle PO SCH (19:30)
[2017-07-26] MEDS: Tamsulosin HCl 0.4 MG CAP PO SCH (21:05)
--- NOTE | 2017-07-26 22:56 | CON ---
DATE OF CONSULTATION: 07/26/2017 REASON FOR CONSULTATION: Iron deficiency anemia CONSULTING PHYSICIAN: Lavon Garcia D.O. HISTORY OF PRESENT ILLNESS: The patient is a 76-year-old male with past medical history of congestive heart failure; chronic atrial fibrillation, on anticoagulation; peripheral vascular disease; pulmonary embolism; hyperlipidemia ; renal cell carcinoma, status post nephrectomy; hypothyroidism; benign prostatic hyperplasia; GERD; and prostate cancer, status post TURP; who was initially admitted for complaints of shortness of breath, cough, and general weakness. Of note, he was recently admitted to the hospital in 05/2017 and diagnosed with community-acquired pneumonia and right lower lobe pulmonary embolism and subsequently placed back on anticoagulation. However, over the last week, he has been having increased shortness of breath, cough, and general malaise, which prompted him to seek medical care. On admission, he was noted to be influenza A positive and ultimately admitted for treatment of this condition. However, upon review of his labs, he was noted to have a significant decreased in his H&H consistent with anemia with iron indices indicative of a possible iron deficiency anemia. Upon interviewing the patient , he states that prior to admission, he had had occurrence of black stools for around 3 days prior to admission, characterized as semi-solid in nature, but with no difficulty in passing. He also states that during the same time. He had also ingested both Oreos and beets, which can contribute to further darkening of his stools. However, also during this admission, he endorses bright red blood per rectum that was present only on the toilet paper, not in the toilet. Associated symptoms with all the above were recent weight loss of approximately 10 pounds within the last 1-2 months, vomiting with one episode of vomiting 2-3 days ago of clear mucous as well as hematuria, but in the remote past. Of note, the patient seems to be a poor historian and was unable to relate recent events effectively. REVIEW OF SYSTEMS: A 12-category review of systems was obtained with all responsive negative except for the pertinent positives as listed in the HPI. PAST MEDICAL HISTORY: Per HPI. PAST SURGICAL HISTORY: Nephrectomy, coronary artery bypass graft, prostate brachytherapy. FAMILY HISTORY: Liver cancer (brother), coronary artery disease. SOCIAL HISTORY: Denies any tobacco or illicit drug use. He was drinking two drinks nightly prior to admission, but more recently within the last 1-2 months had been drinking 4-6 beers daily. OUTPATIENT MEDICATIONS: Augmentin, Lipitor, Coreg, Multaq, Lasix, Combivent, levothyroxine, Protonix, pentoxifylline, Xarelto and Flomax. ALLERGIES: AMIODARONE and IODINE. PHYSICAL EXAMINATION: VITAL SIGNS: Temperature of 97.7, pulse 75, blood pressure 110/77, respiratory rate 20, satting 98% on room air. GENERAL: The patient is lying comfortably in bed, in no acute distress. Alert and oriented x4. HEENT: Normocephalic, atraumatic. NECK: Supple. No JVD noted. CARDIOVASCULAR: Regular rate and rhythm with a 3/6 systolic ejection murmur heard at the right and left upper sternal border. A mechanical clicking sound also heard in the left chest at the fifth intercostal space in the midclavicular line. RESPIRATORY: Diminished breath sounds in all lung haile with mild expiratory wheezing noted. ABDOMEN: Normoactive bowel sounds, soft, nontender, nondistended. No rebound or guarding present. EXTREMITIES: No cyanosis, clubbing or edema. LABORATORY DATA: CBC with a white blood cell count of 3.3, hemoglobin 9.6, hematocrit 30.1, platelets 126. Chemistry with a sodium of 129, potassium 4.6, chloride 100, CO2 of 21, BUN 19, creatinine 1.33, glucose 99, AST 25, ALT 13, alkaline phosphatase 82, total bilirubin 0.7, INR 2.3. BNP 1147. IMAGING STUDIES: Chest x-ray obtained on 07/25/2017 showing cardiomegaly with small bilateral effusions, right lower lobe airspace opacity which could reflect early consolidation as well as peripheral right upper lobe scarring and pleural thickening. ASSESSMENT AND PLAN: The patient is a 76-year-old male with past medical history of congestive heart failure; chronic atrial fibrillation, on anticoagulation; peripheral vascular disease; pulmonary embolism; hyperlipidemia ; renal cell carcinoma, status post right nephrectomy; hypothyroidism; prostate cancer, status post TURP; and gastroesophageal reflux disease; presenting with anemia along with black stools and bright red blood per rectum concerning for GI bleeding. GI bleeding: The patient presenting with a recent history of dark or black stools shortly before admission that were semi-solid in nature; however, at the time he has been eating foodstuff that could potentially generate a black stool (Oreo cookies and beets). He also endorses bright red blood per rectum that has been present here during this hospitalization which could not be confirmed by nursing staff. However, CBC showing a decline in his H&H from baseline with an elevated RDW despite a normocytic characterization of his red blood cells concerning for possible GI bleed. Also given his elevated BUN to creatinine ratio could be indicative of an upper GI bleed, but in light of his nephrectomy this may be a specious relationship. In any case, endoscopic evaluation with both EGD and colonoscopy is indicated for anemia from baseline and possible melena. Upon review with the patient, he said his last colonoscopy was approximately 5 years ago with polyps removed, unknown type in number. RECOMMENDATIONS: 1. We would proceed with EGD and colonoscopy tomorrow for evaluation of possible GI bleeding. 2. We would continue to trend H&H and transfuse as necessary to maintain an H& H of 7/21. 3. Continue PPI daily for prophylaxis of possible upper gastrointestinal bleed. MTDD
[2017-07-27 05:16] LABS: Anion Gap 21 mmol/L (10-20); BUN (Urea Nitrogen) 20 mg/dL (8.4-25.7); Calc. Creatinine Clearance 40 mL/min (70-130); Calcium 8.9 mg/dL (7.8-10.44); Carbon Dioxide 16 mmol/L (23-31); Chloride 101 mmol/L (98-107); Estimated GFR-MDRD 47; Glucose 150 mg/dL (83-110); Potassium 4.6 mmol/L (3.5-5.1); Sodium 133 mmol/L (136-145)
[2017-07-27 05:26] LABS: Band 7 % (5-11); Hemoglobin 11.2 g/dL (14.0-18.0); Lymphocytes 25 % (21-51); MDiff Complete? YES; Mean Corpuscular Volume 87.2 fl (80.0-94.0); Mean Platelet Volume 9.5 fL (7.4-10.4); Monocytes 6 % (0-10); Neutrophil 62 % (42-75); PLT Morphology Comment Appears Adequate; Platelet Count 175 thou/uL (130-400); RBC Distribution Width 17.4 % (11.5-14.5); Red Blood Cell (RBC) Count 4.14 mill/uL (4.70-6.10); White Blood Cell (WBC) Count 4.3 thou/uL (4.8-10.8)
[2017-07-27] MEDS: Levothyroxine Sodium 50 MCG TAB PO SCH (05:28)
[2017-07-27] MEDS: Sodium Chloride 0.9% 1,000 ML IV SCH ×2 (07:51→18:22)
[2017-07-27] MEDS: Dronedarone HCl 400 MG TAB PO SCH ×2 (07:52→16:28)
[2017-07-27] MEDS: predniSONE 20 MG TAB PO SCH (07:52)
[2017-07-27] MEDS: Carvedilol 25 MG TAB PO SCH ×2 (07:53→21:30)
[2017-07-27] MEDS: Potassium Chloride 20 MEQ TAB PO SCH (07:53)
[2017-07-27] MEDS: Furosemide 20 MG TAB PO SCH (07:54)
[2017-07-27] MEDS: Oseltamivir 75 MG CAP PO SCH ×2 (08:36→21:31)
--- NOTE | 2017-07-27 14:01 | OP ---
DATE OF PROCEDURE: 07/27/2017 PROCEDURES: Colonoscopy with polypectomy, esophagogastroduodenoscopy with biopsy. PROCEDURE #1: Esophagogastroduodenoscopy. DESCRIPTION OF PROCEDURE: After the risks and benefits of the procedure were explained to the patien t including risks of bleeding, infection, perforation, reaction to anesthesia and/or pain, informed c onsent was obtained. The patient was then taken to the endoscopy suite where deep sedation was admin istered via propofol and anesthesia support. The standard gastroscope was then introduced into the out with intubation of the esophagus, stomach and proximal small intestine. The patient tolerated t he procedure well with no perioperative or immediate complications. FINDINGS: ESOPHAGUS: Small punctate whitish plaques were seen along the esophageal mucosa in the proximal and midesophagus. They were not easily removed with irrigation. Biopsies were taken of these plaques fo r evaluation of possible Sheryl esophagitis. Normal mucosa was seen in the distal esophagus. Both the diaphragmatic pinch and GE junction were well seen at approximately 45 cm past the incisors. The re was no evidence of esophagitis, erosions or mass lesions. STOMACH: Normal appearing mucosa was seen in the cardia, fundus body, and incisura. Linear patches of erythema were seen extending from the pylorus proximally into the distal body without associated e rosions or ulcerations. There was no evidence of active/recent bleeding seen in this region. No hia walter hernia was seen on retroflexion. DUODENUM: Normal appearing mucosa was seen in both the duodenal bulb and second portion of the duode num. There was no evidence of erosions, ulcerations, or mass lesions. IMPRESSION: Whitish plaques in the proximal esophagus consistent with Sheryl esophagitis. Two line ar patches of erythema in the antrum consistent with atrophic gastritis versus gastric antral vascula r ectasia. PROCEDURE #2: Colonoscopy. DESCRIPTION OF PROCEDURE: After the risks and benefits of the colonoscopy were explained to the adrian ent including risks of bleeding, infection, perforation, reaction to anesthesia and/or pain, informed consent was obtained. The patient was then taken to the endoscopy suite where deep sedation was adm inistered via propofol and anesthesia support. The standard colonoscope was then introduced into the rectum and advanced to the cecum with some difficulty given tortuosity and redundancy of the colon. The quality of the prep was good. The patient tolerated the procedure well with no immediate or per ioperative complications. FINDINGS: RECTAL EXAM: Small external hemorrhoids were seen on digital rectal exam, no masses palpated. COLON: Normal appearing mucosa was seen at the appendiceal orifice and ileocecal valve. A 4 mm sess ile polyp was seen in the cecum and completely removed with cold snare polypectomy. It was retrieved for and placed in a specimen jar for pathology evaluation. A 4 mm sessile polyp was also seen in th e ascending colon and completely removed with cold snare polypectomy, it was retrieved and placed in a specimen jar for pathology evaluation. Four polyps measuring 3 mm to 5 mm were seen in the transve rse colon and completely removed with a combination of cold snare polypectomy and biopsy forceps. Th ey were all retrieved and placed in a specimen jar for evaluation. A 3 mm polyp was seen in the desc ending colon and completely removed with biopsy forceps. It was retrieved and placed in a specimen j ar for evaluation. Another 3 mm polyp was seen in the sigmoid colon and completely removed with biop sy forceps. It was retrieved and placed in specimen jar for evaluation. Normal appearing mucosa was seen in the rectum. The rectal vault itself was too small for rectal retroflexion to be obtained, b ut upon slow withdrawal, large or medium sized internal hemorrhoids were seen just proximal to the an al canal. IMPRESSION: 1. Multiple colonic polyps removed with combination of cold snare polypectomy and biopsy forceps in the cecal, ascending, transverse, descending and sigmoid colons. 2. Internal and external hemorrhoids. RECOMMENDATIONS: 1. Follow up with primary inpatient team. 2. Continue to trend hemoglobin and hematocrit and transfuse as necessary to maintain hemoglobin and hematocrit of 7/21. 3. We will follow up on biopsy/pathology results from today's procedures. 4. We will start patient on oral fluconazole for treatment of probable Sheryl esophagitis. 5. Would recommend a higher fiber diet given the presence of internal and external hemorrhoids being the most likely reason for his recent hematochezia.
[2017-07-27] MEDS ORDERED: Lidocaine 1% PF 5 ML VIAL ONE (14:06)
[2017-07-27] MEDS ORDERED: PROPOFOL 200 MG/20 ML VIAL ONE (14:06)
[2017-07-27] MEDS ORDERED: PHENYLEPHRINE-NS 100 MCG/ML 10 ML SYRINGE ONE (14:06)
--- NOTE | 2017-07-27 16:01 | PDOC.PN ---
- Subjective Encounter Start Date: 07/27/17 Encounter Start Time: 15:59 Mr. Mauricio was seen in follow-up with regards to Flu, and melena. He says he feels better, has less cough and shortness of breath. - Objective Resuscitation Status: Resuscitation Status FULL:Full Resuscitation MAR Reviewed: Yes Vital Signs & Weight: Vital Signs (12 hours) Temp Pulse Resp BP Pulse Ox 07/27/17 09:47 88 15 100 07/27/17 08:00 97.4 F L 88 15 100 07/27/17 07:36 97.4 F L 88 20 148/85 H 100 07/27/17 06:17 95 14 98 07/27/17 04:00 97.2 F L 95 16 138/84 100 Weight Admit Weight 150 lb Weight 150 lb I&O: 07/26/17 07/27/17 07/28/17 06:59 06:59 06:59 Intake Total 1979 5466 Balance 1979 5466 Result Diagrams: 07/27/17 04:31 07/27/17 04:31 Phys Exam - Physical Examination HEENT: PERRLA Respiratory: no rales, wheezing present Cardiovascular: RRR, no significant murmur, no rub Gastrointestinal: soft, non-tender, positive bowel sounds Musculoskeletal: no edema Dx/Plan (1) Colon polyps Code(s): K63.5 - POLYP OF COLON Status: Acute (2) Hemorrhoids without complication Code(s): K64.9 - UNSPECIFIED HEMORRHOIDS Status: Acute (3) Chronic atrial fibrillation Code(s): I48.2 - CHRONIC ATRIAL FIBRILLATION Status: Acute Comment: Rate variable, continue Coreg and Multaq, hold anticoagulation due to guaiac + stools (4) Guaiac positive stools Status: Acute Comment: hx of GI bleed currently on Trental, Prednisone and Xarelto. Hold Xarelto, consult GI service, Protonix 40mg daily, serial H/H monitoring (5) Influenza A Code(s): J10.1 - FLU DUE TO OTH IDENT INFLUENZA VIRUS W OTH RESP MANIFEST Status: Acute Comment: Continue Tamiflu 75mg BID, respiratory isolation - Plan * Influenza A- patient is improving- continue Tamiflu, and duonebs * Melena- possibly due to Hemorrhoids - H&H has remained stable * AFIB- heart rate is stable * Patient is not on anticoaguation due to a history of Hemturia, and epistaxis. He was told to never start anticoagulation again * Possibly home tomorrow if stable
[2017-07-27] MEDS: Tamsulosin HCl 0.4 MG CAP PO SCH (21:30)
[2017-07-28] MEDS: Levothyroxine Sodium 50 MCG TAB PO SCH (05:18)
[2017-07-28] MEDS: Sodium Chloride 0.9% 1,000 ML IV SCH ×2 (05:20→22:20)
[2017-07-28] MEDS: Dronedarone HCl 400 MG TAB PO SCH ×2 (08:55→17:12)
[2017-07-28] MEDS: Carvedilol 25 MG TAB PO SCH ×2 (08:56→21:37)
[2017-07-28] MEDS: Potassium Chloride 20 MEQ TAB PO SCH (08:56)
[2017-07-28] MEDS: predniSONE 20 MG TAB PO SCH (08:56)
[2017-07-28] MEDS: Furosemide 20 MG TAB PO SCH (09:07)
[2017-07-28] MEDS: Oseltamivir 75 MG CAP PO SCH ×2 (09:11→21:37)
[2017-07-28] MEDS: Benzonatate 100 MG CAP PO PRN (12:04)
--- NOTE | 2017-07-28 12:09 | RAD ---
CHEST TWO VIEWS: History: Flu. Comparison: 07-25-17 FINDINGS: There is a right lower lobe airspace opacity and layering right effusion. Left lung is clear. No pneu mothorax. Post-surgical change of the mediastinum. Lungs are hyperinflated. There are pleural plaques . IMPRESSION: 1. Enlarging right pleural effusion and worsening right basilar airspace opacity concerning for pneum onia. 2. Pleural plaques on the right. POS: [facility]
--- NOTE | 2017-07-28 13:04 | PDOC.PN ---
- Subjective Encounter Start Date: 07/28/17 Encounter Start Time: 13:02 Mr. Tyler was seen today in follow-up of Influenza A. He says he is more short of breath today. He says he feels very weak, and has no energy. - Objective Resuscitation Status: Resuscitation Status FULL:Full Resuscitation MAR Reviewed: Yes Vital Signs & Weight: Vital Signs (12 hours) Temp Pulse Resp BP Pulse Ox 07/28/17 12:12 98 18 98 07/28/17 08:00 97.2 F L 100 16 99 07/28/17 07:45 97.2 F L 16 132/84 07/28/17 06:30 100 12 99 Weight Admit Weight 150 lb Weight 156 lb 6 oz I&O: 07/27/17 07/28/17 07/29/17 06:59 06:59 06:59 Intake Total 5466 2319 300 Balance 5466 2319 300 Result Diagrams: 07/27/17 04:31 07/27/17 04:31 Phys Exam - Physical Examination HEENT: PERRLA Respiratory: wheezing present Rales at the base, and decreased breath sounds Cardiovascular: RRR, no significant murmur, no rub Gastrointestinal: soft, non-tender, positive bowel sounds Musculoskeletal: no edema Dx/Plan (1) Colon polyps Code(s): K63.5 - POLYP OF COLON Status: Acute (2) Hemorrhoids without complication Code(s): K64.9 - UNSPECIFIED HEMORRHOIDS Status: Acute (3) Chronic atrial fibrillation Code(s): I48.2 - CHRONIC ATRIAL FIBRILLATION Status: Acute Comment: Rate variable, continue Coreg and Multaq, hold anticoagulation due to guaiac + stools (4) Guaiac positive stools Status: Acute Comment: hx of GI bleed currently on Trental, Prednisone and Xarelto. Hold Xarelto, consult GI service, Protonix 40mg daily, serial H/H monitoring (5) Influenza A Code(s): J10.1 - FLU DUE TO OTH IDENT INFLUENZA VIRUS W OTH RESP MANIFEST Status: Acute Comment: Continue Tamiflu 75mg BID, respiratory isolation - Plan * Influenza A- patient has worsening symptoms, and Chest X-ray demonstrates a right lower lobe infiltrate- will add antibiotics to cover for bacterial pneumonia. I have asked Pulmonary to see him as well ( He was recently admitted with pneumonia, and PE ) * Melena- likely from hemorrhoids - his H&H has remained stable * AFIB- heart rate is slightly elevated but acceptable ( likely elevated due to neb treatments)
[2017-07-28] MEDS ORDERED: Vancomycin HCl 1 GM in Premix Bag 1 BAG IVPB SCH (14:00)
--- NOTE | 2017-07-28 14:17 | PRG ---
DATE OF SERVICE: 07/28/2017 SUBJECTIVE: The patient states that he is having increased difficulty breathing this morning associated with increased cough and production of greenish sputum. He also states that he has been having more difficulty moving with significantly increased shortness of breath with exertion. Currently, denies any nausea, vomiting, fevers, chills or GI bleeding. OBJECTIVE: VITAL SIGNS: Temperature 97.2, pulse 98, blood pressure 132/84, respiratory rate 18, satting 98% on room air. GENERAL: The patient in mild to moderate distress with increased work of breathing. CARDIOVASCULAR: Tachycardic rate with normal rhythm. No discernible murmurs, gallops or rubs. RESPIRATORY: Coarse breath sounds heard in all lung haile with significant expiratory wheezing. ABDOMEN: Normoactive bowel sounds, soft, nontender, nondistended. EXTREMITIES: No cyanosis, clubbing or edema. LABORATORY DATA: No current laboratory studies are available for review. IMAGING STUDIES: Chest x-ray obtained on 07/28/2017 showing enlarging right pleural effusion and worsening right basilar airspace opacity concerning for pneumonia. ASSESSMENT AND PLAN: The patient is a 76-year-old male with past medical history of congestive heart failure, chronic atrial fibrillation on anticoagulation, peripheral vascular disease, pulmonary embolism, hyperlipidemia , renal cell carcinoma, status post right nephrectomy, hypothyroidism, prostate cancer, status post transurethral resection of the prostate and gastroesophageal reflux disease presenting with anemia concerning for gastrointestinal bleed as well as increased of shortness of breath, concerning for possible recurrence of his pneumonia. Gastrointestinal bleeding. The patient presented with a recent history with dark or black stools shortly before admission that were semi-solid in nature, concerning for possible upper gastrointestinal bleed; however, he had also been eating food stuff that could have potentially generated a black stool (mainly cookies and beets). Also, during this hospitalization, he endorsed bright red blood per rectum that was present only on the toilet paper, not in the toilet concerning for a lower GI bleed as well. He subsequently underwent both esophagogastroduodenoscopy and colonoscopy on 07/27/2017 with esophageal candidiasis shown on the upper endoscopy and only multiple colonic polyps and hemorrhoids seen on the lower endoscopy. At this time, the darker colored stools are most likely dietary related in nature with no evidence of upper gastrointestinal bleeding seen on esophagogastroduodenoscopy. The presence of hematochezia is most likely due to his hemorrhoids. At this point in time, he does not have any evidence of active gastrointestinal bleeding contributing to his anemia. RECOMMENDATIONS: 1. We would continue the PPI daily for gastroesophageal reflux disease. 2. Would continue to trend hemoglobin and hematocrit and transfuse as necessary to maintain hemoglobin and hematocrit of 7/21, but would pursue other etiologies of anemia given that a gastrointestinal source is unlikely at this time. Pneumonia. The patient initially presenting with positive influenza A serology and was subsequently admitted to the hospital for exacerbation due to this infectious pathogen. However, over the last 12-24 hours, he has had significantly increased shortness of breath and difficulty moving air. On physical exam today, he was noted to have worsening crackles in all lung haile concerning for either congestive heart failure or infection. Chest x-ray obtained today showed a consolidation concerning for possible pneumonia. RECOMMENDATIONS: 1. I have contacted the primary inpatient team about the results of the above. They will defer to their judgment regarding workup of probable pneumonia. We will sign off at this time. Please call with any additional questions. RAULITO
[2017-07-28] MEDS: Vancomycin HCl 1 GM in Premix Bag 1 BAG IVPB SCH (14:50)
--- NOTE | 2017-07-28 17:33 | CON ---
DATE OF CONSULTATION: 07/28/2017 REASON FOR CONSULTATION: Pneumonia and respiratory insufficiency. HISTORY OF PRESENT ILLNESS: This is a 76-year-old male who was admitted to this facility on 07/25/19 18. He had been experiencing shortness of breath and body aches for 3-4 days prior to admission. To day, he is complaining of cough and congestion. He has been diagnosed with influenza. He also has a right lower lobe pneumonia on x-ray. Today, he was complaining of more shortness of breath and that is the reason the consultation was initiated and the history is obtained from speaking with the adrian ent and reviewing records as well as speaking with Dr. Navas. PAST MEDICAL HISTORY: 1. Alcohol abuse. 2. Coronary artery disease. 3. Peripheral vascular disease. 4. Atrial fibrillation, which is chronic. 5. Pulmonary embolism. 6. Hyperlipidemia. 7. Renal cell carcinoma requiring nephrectomy. 8. Benign prostatic hypertrophy. 9. Hypothyroidism. 10. Gastroesophageal reflux. 11. Diastolic cardiac dysfunction. 12. Prostate cancer. 13. Coronary artery disease requiring bypass grafting surgery. 14. Nephrectomy. 15. Open reduction and internal fixation, right ankle fracture. 16. Right lower extremity arterial stent placement. MEDICATIONS PRIOR TO ADMISSION: ProAir Respiclick, Augmentin, Lipitor, Coreg, Multaq, Lasix, Combive nt, levothyroxine, Protonix, pentoxifylline, potassium chloride, Xarelto, and Flomax. ALLERGIES: AMIODARONE and IODINE. FAMILY MEDICAL HISTORY: Unremarkable. SOCIAL HISTORY: , lives in [place]. Does not use illicit drugs. REVIEW OF SYSTEMS: Twelve-point review of systems is otherwise negative. PHYSICAL EXAMINATION: VITAL SIGNS: Temperature 97.2, pulse 98, respirations 18, O2 saturation 98%, blood pressure 132/84. GENERAL: He is awake and alert and in no distress. He is not currently wearing oxygen and his O2 sa t readings is 100% on monitor. HEENT: Pupils react. Sclerae are enteric. Oropharynx clear. NECK: Without adenopathy or JVD. CARDIOVASCULAR: S1, S2, irregularly irregular without murmur. LUNGS: Diffuse bilateral wheezing. ABDOMEN: Soft and nontender. EXTREMITIES: No clubbing, cyanosis, or edema. He has some chronic skin changes over both of his ank les. He moves all 4 extremities without difficulty. NEUROLOGIC: He is alert. LABORATORY DATA: INR is 2.3. White blood cell count 4.3, hematocrit 36.1, platelet count 175. Sodi um 133, potassium 4.6, chloride 101, CO2 of 16, BUN 20, creatinine 1.4. Chest x-ray shows infiltrate in the right lower lobe as well as small pleural effusions. ASSESSMENT: 1. Influenza. 2. Right lower lobe pneumonia, which could be either viral or bacterial. PLAN: Reviewed orders, agree with antibiotics, antivirals, nebulization treatments, and steroids. I t will take some time for this to improve.
[2017-07-28] MEDS ORDERED: Cefepime 1 GM in Sodium Chloride 0.9% 100 ML IVPB SCH (21:00)
[2017-07-28] MEDS ORDERED: Melatonin 3 MG TAB PO SCH (21:15)
[2017-07-28] MEDS: Cefepime 1 GM, Admixture Fee 1 EACH in Sterile Water 10 ML SLOW IVP SCH (21:35)
[2017-07-28] MEDS: Tamsulosin HCl 0.4 MG CAP PO SCH (21:36)
[2017-07-29] MEDS: Levothyroxine Sodium 50 MCG TAB PO SCH (05:21)
[2017-07-29] MEDS: Potassium Chloride 20 MEQ TAB PO SCH (09:22)
[2017-07-29] MEDS: predniSONE 20 MG TAB PO SCH (09:22)
[2017-07-29] MEDS: Carvedilol 25 MG TAB PO SCH ×2 (09:22→23:27)
[2017-07-29] MEDS: Fluconazole 100 MG TAB PO SCH ×2 (09:23→09:24)
[2017-07-29] MEDS: Furosemide 20 MG TAB PO SCH (09:23)
[2017-07-29] MEDS: Dronedarone HCl 400 MG TAB PO SCH ×2 (09:24→17:01)
[2017-07-29] MEDS: Oseltamivir 75 MG CAP PO SCH ×2 (09:26→23:25)
[2017-07-29] MEDS: Cefepime 1 GM, Admixture Fee 1 EACH in Sterile Water 10 ML SLOW IVP SCH (09:30)
--- NOTE | 2017-07-29 11:11 | PRG ---
DATE OF SERVICE: 07/29/2017 The patient is still troubled by congestion and shortness of breath. PHYSICAL EXAMINATION: VITAL SIGNS: Temperature 97, pulse 97, blood pressure 124/90, O2 sat 98% on 3 liters, respiratory ra te 20. HEENT: Unremarkable. NECK: No JVD. LUNGS: Coarse rhonchi. CARDIOVASCULAR: S1 and S2 regular. ABDOMEN: Soft. EXTREMITIES: No edema. No new labs were obtained today. ASSESSMENT: 1. Influenza. 2. Right lower lobe pneumonia. 3. Probably some component of underlying chronic obstructive pulmonary disease. PLAN: Continue antibiotics, antimicrobials, nebulization treatments and steroids. I think this will take many days to improve.
[2017-07-29] MEDS: Sodium Chloride 0.9% 1,000 ML IV SCH (12:58)
[2017-07-29] MEDS: Vancomycin HCl 1 GM in Premix Bag 1 BAG IVPB SCH (12:59)
[2017-07-29] MEDS: Ondansetron HCl/PF 4 MG/2 ML Vial IVP PRN (13:32)
--- NOTE | 2017-07-29 16:54 | PDOC.PN ---
- Subjective Encounter Start Date: 07/29/17 Encounter Start Time: 16:52 Mr. Tyler says he feels weak and short of breath. - Objective Resuscitation Status: Resuscitation Status FULL:Full Resuscitation MAR Reviewed: Yes Vital Signs & Weight: Vital Signs (12 hours) Temp Pulse Resp BP Pulse Ox 07/29/17 13:54 94 21 H 97 07/29/17 09:40 97 20 98 07/29/17 08:00 94.6 F L 97 20 98 07/29/17 07:46 94 16 124/90 100 07/29/17 06:48 97 20 99 Weight Admit Weight 150 lb Weight 152 lb I&O: 07/28/17 07/29/17 07/30/17 06:59 06:59 06:59 Intake Total 2319 400 Balance 2319 400 Result Diagrams: 07/27/17 04:31 07/27/17 04:31 Phys Exam - Physical Examination HEENT: PERRLA Respiratory: wheezing present + wheezing and rhonchi bilaterally Cardiovascular: RRR, no significant murmur Gastrointestinal: soft, non-tender, positive bowel sounds Musculoskeletal: no edema Dx/Plan (1) Colon polyps Code(s): K63.5 - POLYP OF COLON Status: Acute (2) Hemorrhoids without complication Code(s): K64.9 - UNSPECIFIED HEMORRHOIDS Status: Acute (3) Chronic atrial fibrillation Code(s): I48.2 - CHRONIC ATRIAL FIBRILLATION Status: Acute Comment: Rate variable, continue Coreg and Multaq, hold anticoagulation due to guaiac + stools (4) Guaiac positive stools Status: Acute Comment: hx of GI bleed currently on Trental, Prednisone and Xarelto. Hold Xarelto, consult GI service, Protonix 40mg daily, serial H/H monitoring (5) Influenza A Code(s): J10.1 - FLU DUE TO OTH IDENT INFLUENZA VIRUS W OTH RESP MANIFEST Status: Acute Comment: Continue Tamiflu 75mg BID, respiratory isolation - Plan * Inluenza A, and Post Influenza Pneumonia- Continue IV antibiotics as well as Tamiflu * Incentive Spirometry, and Neb treatments as needed * Encourage oral intake * AFIB- heart rate is stable.
[2017-07-29] MEDS: Benzonatate 100 MG CAP PO PRN (17:01)
[2017-07-29 19:29] LABS: pH, Arterial 7.22 (7.35-7.45)
[2017-07-29 19:30] LABS: Actual Bicarbonate (HCO3a) 6.4 mEq/L (22-26); Base Excess (BEa) 19.6 mEq/L (0 (+/-) 2.5); O2 Tension (PaO2) 33.7 mmHg (80.0-100.0)
[2017-07-29 19:31] LABS: Hematocrit-ABG 16.3 % (42.0-52.0); Hemoglobin (Hb) 5.5 g/dL (14.0-18.0)
[2017-07-29 19:32] LABS: Calcium, Ionized 0.6 mmol/L (1.12-1.30)
[2017-07-29 19:33] LABS: Puncture Site RUA
[2017-07-29 19:39] LABS: Troponin I 0.065 ng/mL (< 0.028)
--- NOTE | 2017-07-29 19:49 | PDOC.EVN ---
Event Note - Event Note Event Note: Code [place] was called due to patient developing respiratory distress. He was found to be acidotic, and tachypneic. He has been moved to the [facility] and Pulmonary and Critical care has been notified. He has been placed on BiPAP, and could require mechanical ventilation.
[2017-07-29 20:03] LABS: Anion Gap 30 mmol/L (10-20); BUN (Urea Nitrogen) 47 mg/dL (8.4-25.7); Calc. Creatinine Clearance 24 mL/min (70-130); Calcium 9.3 mg/dL (7.8-10.44); Chloride 101 mmol/L (98-107); Estimated GFR-MDRD 25; Glucose 79 mg/dL (83-110); Magnesium 1.8 mg/dL (1.6-2.6); Sodium 134 mmol/L (136-145)
[2017-07-29 20:06] LABS: Carbon Dioxide 9 mmol/L (23-31); Lactic Acid 10.1 mmol/L (0.5-2.2)
[2017-07-29 20:28] LABS: CO2 Tension 23.3 mmHg (35.0-45.0); O2 Tension (PaO2) 306.7 mmHg (80.0-100.0); pH, Arterial 7.23 (7.35-7.45)
[2017-07-29 20:29] LABS: Actual Bicarbonate (HCO3a) 9.5 mEq/L (22-26); Base Excess (BEa) -16.3 mEq/L (0 (+/-) 2.5); Calcium, Ionized 1.1 mmol/L (1.12-1.30); Hematocrit-ABG 37.8 % (42.0-52.0); Hemoglobin (Hb) 10.6 g/dL (14.0-18.0); Puncture Site RBR
[2017-07-29 20:31] LABS: ALV-art Gradient 88.975 (0-20)
[2017-07-29] MEDS ORDERED: Sodium Chloride 0.9% 1,000 ML IV SCH (20:45)
[2017-07-29] MEDS ORDERED: Midazolam HCl 2 mg/2 ml Vial ONE (20:59)
[2017-07-29] MEDS ORDERED: Melatonin 3 MG TAB PO SCH (21:00)
--- NOTE | 2017-07-29 21:37 | PRG ---
DATE OF SERVICE: 07/29/2017 SERVICE: Pulmonary Medicine. INTERVAL HISTORY: The patient was struggling to breathe with increasing work of breathing on the floor. He subsequently moved to the [facility] for BiPAP. That being said, his ABG after he was on BiPAP for a brief period of time demonstrated a significant metabolic acidosis. This prompted us to get some laboratories. The lactate was 10, anion gap was 30. Acidosis has been developing over the past 2 days. As such, it was clear to me that things are likely to get worse before they are going to get better. He was struggling to breathe with a minute volume of over 25 liters per minute on the BiPAP. He did look a little bit more comfortable, but my suspicion is that if things continue to get worse, he was going to have a respiratory arrest. As such, we are moving him into the ICU for intubation. He has a cough with some purulent sputum production. PHYSICAL EXAMINATION: VITAL SIGNS: Temperature 96.0, pulse 70, blood pressure 84/58, respirations 30 , saturation 99% on 40% FIO2 and a PEEP of 5. GENERAL: The patient is awake and alert. He is in moderate respiratory distress. HEENT: Normocephalic, atraumatic. Sclerae are white, conjunctivae pink. Oral and nasal mucosa is moist without lesions. LUNGS: Decent air entry. There is no prolonged expiratory phase, but rhonchi and wheezing are both present. There are some dependent crackles. HEART: Normal rate, regular. ABDOMEN: Soft, nontender, nondistended. Bowel sounds are positive. MUSCULOSKELETAL: No cyanosis or clubbing. There is 2+ pitting in the bilateral lower extremities. NEUROLOGIC: Grossly nonfocal. LABORATORY DATA: PH 7.23, pCO2 of 23, pO2 of 306 on 60% FIO2 and a PEEP of 5. Bicarb 9, anion gap 30, creatinine 2.48. All of these are moving in the wrong direction. Lactate 10.1, magnesium 1.8. Sodium 134, potassium 6.0. Troponin 0.065 and also up trending. Influenza A is positive. Blood cultures x2 remain negative. Fecal occult blood is negative. ASSESSMENT: 1. Acute hypoxic respiratory failure. 2. Community-acquired pneumonia secondary to influenza. 3. Severe sepsis, likely evolving septic shock. 4. Chronic obstructive pulmonary disease, possible. PLAN: We will proceed with intubating the patient. If he drops his pressures, he may need a central line, and initiation of pressors. I will stop the cefepime and give him Zosyn to cover anaerobic organisms. Otherwise, supportive measures will be continued. The pleural effusion may need to be assessed if no other clear source can be identified. If we can get him stable, we will send him down for a noncontrasted CT of the chest as the chest x-ray today suggested pleural effusion which has a funny appearance to it along the posterior aspect of the chest wall. Critical care time: 30 minutes. RAULITO
[2017-07-29] MEDS ORDERED: Norepinephrine 8 MG in Sodium Chloride 0.9% 250 ML 250 ML IVPB PRN (21:40)
[2017-07-29] MEDS ORDERED: Sedation Protocol FS SCH (21:40)
[2017-07-29] MEDS ORDERED: Lacri-Lube Opth Oint 3.5 GM TUBE EA EYE PRN (21:40)
[2017-07-29] MEDS ORDERED: Lorazepam 2 MG/ML VIAL SLOW IVP PRN (21:47)
[2017-07-29] MEDS ORDERED: DISCONTINUE PREVIOUS NARCOTIC PAIN MEDICATIONS AND BENZODIAZEPINES FS SCH (21:47)
[2017-07-29] MEDS ORDERED: Morphine 2 MG/ML SYRINGE SLOW IVP PRN (21:47)
[2017-07-29] MEDS ORDERED: Fentanyl BOLUS 250 ML IVPB PRN (21:47)
--- NOTE | 2017-07-29 22:25 | RAD ---
PORTABLE AP CHEST X-RAY 07/29/17 HISTORY: Endotracheal tube placement. COMPARISON: 07/28/17. FINDINGS: There has been interval placement of endotracheal tube with the tip approximately 2.3 cm from the car tarah. Postsurgical changes related to CABG are noted. The right lateral costophrenic angle as well as left lung base are excluded from view on this exam. Patchy opacity at the right lung base is not well seen, the patient is rotated to the right which may obscure the opacity. There is suggestion of a le ft pleural effusion. There is suggestion of calcified pleural plaques in the upper lungs bilaterally. No other interval change. IMPRESSION: 1. Interval placement of endotracheal tube which is above the level of the chavo. 2. Exclusion of the lung bases. However, there does appear to be a left pleural effusion. Opacit y at the right lung base is less well visualized, but the patient is rotated to the right which may o bscure the opacity. Followup evaluation is recommended. POS: DIN[facility]
--- NOTE | 2017-07-29 22:26 | OP ---
DATE OF SERVICE: 07/29/2017 SERVICE: Pulmonary Medicine. PROCEDURE: Endotracheal intubation, emergent. CONSENT: Consent was implied secondary to urgent situation. STAFF PHYSICIAN: Giovani Woods M.D. MEDICATIONS USED: 1. Versed 2 mg IV push. 2. Etomidate 12 mg IV push. PREPROCEDURE DIAGNOSES: 1. Severe sepsis. 2. Lactic acidosis. POSTPROCEDURE DIAGNOSES: 1. Severe sepsis. 2. Lactic acidosis. DESCRIPTION OF PROCEDURE: Vital sign monitoring was accomplished by noninvasive hemodynamic monitori ng, pulse oximetry, and telemetry. In the supine position, the patient was preoxygenated with bag va lve mask ventilation and maintained with saturations of 100%. Following induction of anesthesia, the GlideScope was inserted through the mouth offering clear identification of the posterior oropharynx and laryngeal structures with a grade I view. The endotracheal tube was visualized passing through t he vocal cords. Placement was confirmed by condensation in the endotracheal tube, colorimetric capno graphy, and biaxillary chest auscultation. The endotracheal tube was secured at 25 cm, measured at t he teeth. The patient was placed on mechanical ventilation with good return of volumes. Post-proced ure chest x-ray demonstrated good location for the endotracheal tube inside the trachea. ESTIMATED BLOOD LOSS: None. COMPLICATIONS: None.
[2017-07-29] MEDS: Sodium Bicarbonate 150 MEQ in Dextrose 5% in Water 1,000 ML IV SCH (22:55)
[2017-07-29] MEDS: Propofol 1,000 MG/100 ML VIAL IV PRN (23:14)
[2017-07-29] MEDS ORDERED: Etomidate 20 MG/10 ML VIAL IVP SCH (23:15)
[2017-07-29] MEDS ORDERED: Midazolam HCl 2 mg/2 ml Vial IVP SCH (23:15)
[2017-07-29 23:26] LABS: Actual Bicarbonate (HCO3a) 7.9 mEq/L (22-26); Base Excess (BEa) -16.4 mEq/L (0 (+/-) 2.5); CO2 Tension 16.5 mmHg (35.0-45.0); Hematocrit-ABG 36.9 % (42.0-52.0); O2 Tension (PaO2) 236.4 mmHg (80.0-100.0)
[2017-07-29] MEDS: Tamsulosin HCl 0.4 MG CAP PO SCH (23:26)
[2017-07-29 23:27] LABS: Hemoglobin (Hb) 10.5 g/dL (14.0-18.0); Puncture Site RRA
[2017-07-29 23:30] LABS: ALV-art Gradient 78.085 (0-20)
[2017-07-29] MEDS: Piperacillin/Tazobactam 3.375 GM in Sodium Chloride 0.9% 100 ML IVPB SCH (23:45)
--- NOTE | 2017-07-30 05:35 | PDOC.CNTRL ---
Central Line Procedure Note - Procedure Date: 07/30/17 Time: 05:20 - Anesthesia Anesthesia: General Amount of anesthesia used (ml): 8
--- NOTE | 2017-07-30 05:40 | PDOC.OP ---
Addendum entered and electronically signed by Dax Durand MD 07/30/17 05: 48: Central Line Procedure Note Original Note: Operative Note - Operative Note Operative Note: INDICATION: Hypotension,Central Venous Pressure Monitoring PROCEDURE CHARGER: Jacquelin Durand MD and Brittany Frazier MD ATTENDING PHYSICIAN: Dax Boyle MD CONSENT: Consent was obtained from patient's prior to the procedure. Indications, risks, and benefits were explained at length. PROCEDURE SUMMARY: A time out was performed. My hands were washed immediately prior to the procedure. I wore a surgical cap, mask with protective eyewear, full gown and sterile gloves throughout the procedure. The patient was placed in Trendelenburg position. RIGHT neck region was prepped using chlorhexidine scrub and draped in usual sterile fashion. The Internal Jugular vein was identified using the ultrasound. Anesthesia was achieved over the vein using 1% lidocaine. Using real-time out of plane guidance, the introducer needle was inserted into the Internal Jugular vein under direct ultrasound visualization. Venous blood was withdrawn. The syringe was removed and a guidewire was advanced into the introducer needle. The guidewire was visualized in the Internal Jugular Vein by ultrasound. A small incision was made at the skin surface with a scalpel and the introducer needle was exchanged for a dilator over the guidewire. After appropriate dilation was obtained, the dilator was exchanged over the wire for a triple-lumen central venous catheter. The wire was removed and the catheter was sutured in place at 18 cm. A sterile sorbaview shield was placed over the catheter at the insertion site. The patient tolerated the procedure without any hemodynamic compromise. At time of procedure completion, all ports aspirated and flushed properly. Post-procedure chest x-ray is pending at this time. Estimated blood loss is 20 cc. <Dax Durand - Last Filed: 07/30/17 05:35> Attending Addendum - Attending Addendum I was present for the entire procedure. Placement confirmed by ultrasound. + lung sliding on the right. I would say EBL close to 10 cc. Rotated CXR with line in good position and no apparent pneumothorax. I discussed the film with radiology and they feel likely major fissure on the right, no pneumothorax, good position. <Dax Boyle - Last Filed: 07/30/17 08:29>
[2017-07-30] MEDS: Levothyroxine Sodium 50 MCG TAB PO SCH (05:57)
[2017-07-30] MEDS: Piperacillin/Tazobactam 3.375 GM in Sodium Chloride 0.9% 100 ML IVPB SCH (05:57)
[2017-07-30 07:03] LABS: Hemoglobin 11.2 g/dL (14.0-18.0); Mean Corpuscular HGB CONC 30.1 g/dL (32.0-36.0); Mean Corpuscular Hemoglobin 27.1 pg (27.0-31.0); Mean Corpuscular Volume 90.2 fl (80.0-94.0); Mean Platelet Volume 10.6 fL (7.4-10.4); Platelet Count 160 thou/uL (130-400); RBC Distribution Width 18.1 % (11.5-14.5); Red Blood Cell (RBC) Count 4.14 mill/uL (4.70-6.10); White Blood Cell (WBC) Count 10.8 thou/uL (4.8-10.8)
[2017-07-30 07:11] LABS: ALT (SGPT) 419 U/L (8-55); AST (SGOT) 766 U/L (5-34); Albumin 3.4 g/dL (3.4-4.8); Alkaline Phosphatase 83 U/L (40-150); BUN (Urea Nitrogen) 54 mg/dL (8.4-25.7); Bilirubin, Total 2.2 mg/dL (0.2-1.2); Calc. Creatinine Clearance 26 mL/min (70-130); Chloride 102 mmol/L (98-107); Estimated GFR-MDRD 25; Globulin 2.3 g/dL (2.4-3.5); Glucose 63 mg/dL (83-110); Phosphorus 8.3 mg/dL (2.3-4.7); Potassium 6.5 mmol/L (3.5-5.1); Protein, Total 5.7 g/dL (5.8-8.1); Sodium 132 mmol/L (136-145)
[2017-07-30 07:20] LABS: Band 8 % (5-11); Burr Cells MODERATE= 6-15 cells (100X) (0-1/hpf); Lymphocytes 9 % (21-51); MDiff Complete? YES; Monocytes 4 % (0-10); Neutrophil 79 % (42-75); PLT Morphology Comment Appears Adequate
[2017-07-30 07:29] LABS: Carbon Dioxide Less than 8 mmol/L (23-31)
[2017-07-30 08:07] LABS: Actual Bicarbonate (HCO3a) 9.5 mEq/L (22-26); Base Excess (BEa) -13.1 mEq/L (0 (+/-) 2.5); CO2 Tension 15.5 mmHg (35.0-45.0); O2 Tension (PaO2) 125.5 mmHg (80.0-100.0)
[2017-07-30 08:08] LABS: Calcium, Ionized 0.9 mmol/L (1.12-1.30); Hematocrit-ABG 35.4 % (42.0-52.0); Hemoglobin (Hb) 9.9 g/dL (14.0-18.0); Puncture Site RRA
[2017-07-30 08:09] LABS: ALV-art Gradient 46.285 (0-20)
--- NOTE | 2017-07-30 08:21 | PRG ---
DATE OF SERVICE: 07/30/2017 Thirty-five minutes critical care time. SUBJECTIVE: The patient decompensated last night and required transfer to the CCU for endotracheal i ntubation by Dr. Woods. The patient is currently sedated and on mechanical ventilation. OBEJCTIVE: VITAL SIGNS: Temperature is 98.1, pulse 83, blood pressure 109/77. A 24-hour intake 4051, output 81 2. Weight 171 pounds. GENERAL: The patient will awaken on mechanical ventilation. HEENT: Pupils react. Sclerae are anicteric. Oropharynx dry. NECK: No JVD. LUNGS: Coarse breath sounds bilaterally. CARDIOVASCULAR: S1 and S2, regular, without murmur. ABDOMEN: Fairly soft. I cannot elicit tenderness. EXTREMITIES: Insignificant edema. LABORATORY DATA: Sodium 132, potassium 6.5, chloride 102, CO2 of 8, BUN 54, creatinine 2.5, glucose 63, lactate level was 12, AST 766, ALT 419. Pancreatic enzyme levels are pending. PH 7.30, pCO2 of 16, pO2 of 236 that was last night. White blood cell count 10, hematocrit 37, platelet count 160. O nly 8% bands. ASSESSMENT: 1. Severe lactic acidosis - etiology not clear. 2. Elevated liver function tests and the patient not clearly in septic shock. 3. Acute respiratory failure, likely secondary to severe metabolic acidosis. 4. Type A flu. 5. Right lower lobe pneumonia. PLAN: 1. I have reconsult the GI to evaluate LFTs. I will get ultrasound of his liver and biliary tree. 2. Add bicarbonate to IV fluids. 3. Consult Nephrology. The patient may need dialysis. 4. Adjust antibiotic doses for renal function. 5. Follow up this morning's ABG when performed.
--- NOTE | 2017-07-30 08:38 | RAD ---
CHEST 1 VIEW: HISTORY: Central line placement. COMPARISON: 07/25/17 and 07/29/17. FINDINGS: Cardiac silhouette is magnified and enlarged. Pulmonary vasculature remains upper limits of normal. The patient is rotated leftward. Postoperative changes are again demonstrated. The tip of the endotracheal catheter overlies the thoracic inlet. Nasogastric tube descends to the a bdomen. A new right internal jugular central venous catheter projects over the lower superior vena c teresa. nuclear monitoring technician leads overlie the chest. IMPRESSION: Right internal jugular central venous catheter is in good radiographic position. POS: [facility]
[2017-07-30] MEDS: D5 IV SCH ×2 (08:53→13:57)
[2017-07-30] MEDS: SODIUM BICARBONATE IV SCH ×2 (08:53→13:57)
[2017-07-30] MEDS: 1/4 NS IV SCH ×2 (08:53→13:57)
[2017-07-30] MEDS: Piperacillin/Tazobactam 2.25 GM in Sodium Chloride 0.9% 100 ML IVPB SCH ×2 (08:59→20:06)
[2017-07-30] MEDS ORDERED: Famotidine/PF 20 mg/2ml Vial SLOW IVP SCH (09:00)
[2017-07-30] MEDS: Dronedarone HCl 400 MG TAB PO SCH ×2 (09:00→17:24)
[2017-07-30] MEDS: fentaNYL Citrate/PF 2,000 MCG in Sodium Chloride 0.9% 60 ML IV SCH (09:22)
--- NOTE | 2017-07-30 09:34 | PDOC.PN ---
- Subjective Encounter Start Date: 07/30/17 Encounter Start Time: 09:30 Mr. Tyler was seen today in follow-up. He is now intubated on mechanical ventilation. - Objective Resuscitation Status: Resuscitation Status FULL:Full Resuscitation MAR Reviewed: Yes Vital Signs & Weight: Vital Signs (12 hours) Temp Pulse Resp BP Pulse Ox 07/30/17 07:16 77 102/67 07/30/17 06:00 38 H 07/30/17 04:00 35 H 07/30/17 02:27 83 99/64 07/30/17 02:00 26 H 07/30/17 00:00 31 H 07/29/17 22:00 96.6 F L 69 36 H 91 L 07/29/17 21:40 74 95/65 Weight Admit Weight 150 lb Weight 171 lb 8.314 oz Most Recent Monitor Data Heart Rate from ECG 83 NIBP 109/77 NIBP BP-Mean 81 Respiration from ECG 22 SpO2 100 I&O: 07/29/17 07/30/17 07/31/17 06:59 06:59 06:59 Intake Total 400 4051.1 Output Total 812 15 Balance 400 3239.1 -15 Result Diagrams: 07/30/17 04:14 07/30/17 04:14 Additional Labs: Accuchecks 07/29/17 19:03 POC Glucose 86 Phys Exam - Physical Examination HEENT: PERRLA + rhonchi bilaterally Cardiovascular: RRR, no significant murmur Gastrointestinal: soft, positive bowel sounds Musculoskeletal: edema present trace pedal edema Dx/Plan (1) Colon polyps Code(s): K63.5 - POLYP OF COLON Status: Acute (2) Hemorrhoids without complication Code(s): K64.9 - UNSPECIFIED HEMORRHOIDS Status: Acute (3) Chronic atrial fibrillation Code(s): I48.2 - CHRONIC ATRIAL FIBRILLATION Status: Acute Comment: Rate variable, continue Coreg and Multaq, hold anticoagulation due to guaiac + stools (4) Guaiac positive stools Status: Acute Comment: hx of GI bleed currently on Trental, Prednisone and Xarelto. Hold Xarelto, consult GI service, Protonix 40mg daily, serial H/H monitoring (5) Influenza A Code(s): J10.1 - FLU DUE TO OTH IDENT INFLUENZA VIRUS W OTH RESP MANIFEST Status: Acute Comment: Continue Tamiflu 75mg BID, respiratory isolation - Plan * Acute respiratory failure- this is due to Pneumonia, as well as severe metabolic acidosis * Continue IV Vancomycin and Zosyn * Metabolic acidosis- ? etiology he appears to be septic as well as acute renal failure from some source * GI has been re-consulted due to elevated LFT's and elevated bilirubin * Acute renal failure with hyperkalemia- Nephrology has been consulted, and he will need urgent hemodialysis * AFIB- heart rate has been controlled.
--- NOTE | 2017-07-30 10:16 | ULT ---
RIGHT UPPER QUADRANT ULTRASOUND: CLINICAL HISTORY: Elevated liver function enzymes, sepsis. FINDINGS: There are low level echoes in the gallbladder lumen. No focal opacity. The gallbladder wall is norm al in size at 2 mm. Briseno's sign is reported as negative. No abnormal biliary ductal dilatation. IMPRESSION: 1. Findings indicate gallbladder sludge. 2. Additional findings are detailed above. POS: DINORAH
[2017-07-30 12:30] LABS: HBSAg Index 0.18 S/CO (0-0.99); Hep B Surf Ag Non-Reactive S/CO (NonReactive)
[2017-07-30 13:22] LABS: Vancomycin, Trough 12.3 ug/mL
[2017-07-30] MEDS: Vancomycin HCl 1.25 GM in Sodium Chloride 0.9% 250 ML 250 ML IVPB SCH (13:56)
[2017-07-30] MEDS: Sodium Bicarbonate 150 MEQ in Dextrose 5% in Water 1,000 ML IV SCH (13:57)
[2017-07-30] MEDS ORDERED: Vancomycin HCl 1 GM in Premix Bag 1 BAG IVPB SCH (14:00)
[2017-07-30] MEDS ORDERED: Vancomycin HCl 1.25 GM in Sodium Chloride 0.9% 250 ML 250 ML IVPB SCH (14:00)
[2017-07-30] MEDS: Propofol 1,000 MG/100 ML VIAL IV PRN (15:10)
[2017-07-30 15:57] LABS: Potassium 3.9 mmol/L (3.5-5.1)
--- NOTE | 2017-07-30 16:09 | CON ---
DATE OF CONSULTATION: 07/30/2017 NEPHROLOGY CONSULT REASON FOR CONSULTATION: Hyperkalemia. HISTORY OF PRESENT ILLNESS: This is a very pleasant 76-year-old gentleman who was intubated and was noted to have acute renal failure. Creatinine increased from 1 to 2 and also developed metabolic aci dosis and was intubated. The patient had severe lactic acidosis as well as elevated LFTs. The patie nt had no prior illness and did not receive any nephrotoxic medication and remained stable. PAST MEDICAL HISTORY: Significant for alcohol use, coronary artery disease, chronic atrial fibrillat ion, right lower lobe pulmonary embolism, renal cell carcinoma, status post nephrectomy, hypothyroidi sm, BPH, GERD, diastolic dysfunction, prostate cancer status post implant, CABG and internal knee fix ation. HOME MEDICATIONS: Reviewed. HOSPITAL MEDICATIONS: Reviewed. ALLERGIES: Reviewed. FAMILY HISTORY: Negative for ESRD. REVIEW OF SYSTEMS: Unobtainable, the patient is intubated. PHYSICAL EXAMINATION: GENERAL: Patient is resting. VITAL SIGNS: Afebrile, pulse 75, breathing at 16, blood pressure was 131/71. GENERAL APPEARANCE AND MENTAL STATUS: Fair. HEAD/NECK: Normocephalic. Atraumatic. EYES: EOMI. No deformity. EARS: Clear. No ulcers. NOSE: Intact. No lesions. MOUTH: Clear. No discharge. THROAT: Clear. No exudate. LUNGS: Clear. No crackles. CARDIAC: S1, S2. No rub. ABDOMEN: Benign. BS+. GENITALIA/RECTUM: Hood absent. BACK/EXTREMITIES: Edema 0+ Ulcer- NEUROLOGICAL: The patient is resting. SKIN: Rash- Bruise- LYMPHATICS: Edema- Ulcer- LABORATORY: Hemoglobin 11.2, bicarbonate less than 8, potassium 6.5. ASSESSMENT AND RECOMMENDATIONS: 1. Acute kidney injury with chronic kidney disease, multifactorial. Agree with workup by Pulmonolog y. 2. Hyperkalemia. Plan dialysis. 3. Metabolic acidosis. Plan dialysis. Risks versus benefits of dialysis were discussed and treatme nt will be initiated for lactic acidosis. Workup for abdominal causes is in progress.
--- NOTE | 2017-07-30 16:50 | ULT ---
BILATERAL UPPER EXTREMITY VENOUS DUPLEX SONOGRAM FOR VEIN MAPPING 07/30/17 HISTORY: Renal disease. Need for fdc dialysis access. FINDINGS: The right internal jugular and subclavian veins were obscured by dressing. Good color and spectral do ppler flow are present within the left internal jugular and subclavian veins. Measurements are as fol lows: RIGHT UPPER EXTREMITY BRACHIAL ARTERY: 4 mm RADIAL ARTERY: 2 mm ULNAR ARTERY: 2 mm CEPHALIC VEIN Proximal Humerus: 3 mm Mid Humerus: 2 mm Distal Humerus: 2 mm Antecubital Fossa: 2 mm Proximal Forearm: 2 mm Mid Forearm: 1 mm Distal Forearm: 3 mm BASILIC VEIN Proximal Humerus: 3 mm Mid Humerus: 3 mm Distal Humerus: 3 mm Antecubital Fossa: 2 mm Proximal Forearm: 1 mm Mid Forearm: 1 mm Distal Forearm: 1 mm LEFT UPPER EXTREMITY BRACHIAL ARTERY: 4 mm RADIAL ARTERY: 3 mm ULNAR ARTERY: 2 mm CEPHALIC VEIN Proximal Humerus: 3 mm Mid Humerus: 3 mm Distal Humerus: 2 mm Antecubital Fossa: 3 mm Proximal Forearm: 5 mm Mid Forearm: 1 mm Distal Forearm: 1 mm BASILIC VEIN Proximal Humerus: 4 mm Mid Humerus: 3 mm Distal Humerus: 4 mm Antecubital Fossa: 2 mm Proximal Forearm: 2 mm Mid Forearm: 2 mm Distal Forearm: 1 mm IMPRESSION: Patent vascular structures within each upper extremity, with measurements as detailed above. POS: DINORAH
--- NOTE | 2017-07-30 17:10 | PRG ---
DATE OF SERVICE: 07/30/2017 SUBJECTIVE: Over the last two days, the patient had increasing work of breathing and shortness of breath associated with a new finding of probable pneumonia on chest x-ray obtained on 07/28/2017; however, despite antibiotic administration, he experienced acute respiratory distress with a code green called on the night of 07/29/2017 with respiratory distress. He was noted to be severely acidotic on laboratories obtained during the code and with his acute clinical decline, he was transferred to the ICU with subsequent intubation and sedation. Today, he is currently on mechanical ventilation with no additional problems overnight; however, on labs obtained upon transfer to the ICU, he was noted to have significantly elevated liver transaminases concerning for possible liver injury. Currently, he cannot contribute any meaningful information to interview due to his intubation and sedation status. Per nursing support, there have been no episodes of GI bleeding, jaundice or abdominal distention. OBJECTIVE: VITAL SIGNS: Temperature 97.9, pulse 74, blood pressure 120/73, respiratory rate 19, satting 100% on mechanical ventilation. GENERAL: The patient is lying comfortably in bed in no acute distress. He is on mechanical ventilation and sedated. CARDIOVASCULAR: Irregularly irregular rhythm with no discernible murmurs, gallops or rubs. RESPIRATORY: Coarse breath sounds heard in all lung haile consistent with mechanical ventilation. ABDOMEN: Normoactive bowel sounds, soft, nontender, nondistended. EXTREMITIES: No cyanosis, clubbing or edema. LABORATORY DATA: CBC with a white blood cell count of 10.8, hemoglobin of 11.2 , hematocrit 37.3, platelets 160. Chemistry with a sodium of 132, potassium 6.5 , chloride 102, CO2 less than 8, BUN 54, creatinine 2.54, glucose 63, AST 766, ALT 419, alkaline phosphatase 83, total bilirubin 2.2, and lactic acid 12. IMAGING STUDIES: Chest x-ray obtained on 07/30/2017 showing pulmonary vasculature remains in the upper limits of normal. An endotracheal catheter is present overlying the thoracic inlet. A nasogastric tube descends to the abdomen. A new right internal venous internal jugular central venous catheter projects over the lower superior vena cava. Right upper quadrant ultrasound obtained on 07/30/2017 showing no abnormalities within the gallbladder with the gallbladder wall measuring approximately 2 mm in size. No abnormal biliary duct dilatation; however, the report does not remark on any of the hepatic vasculature with Doppler. ASSESSMENT AND PLAN: The patient is a 76-year-old male with past medical history of congestive heart failure, chronic atrial fibrillation on anticoagulation, peripheral vascular disease, pulmonary embolism, hyperlipidemia , renal cell carcinoma, status post right nephrectomy, hypothyroidism, prostate cancer, status post transurethral resection of the prostate and gastroesophageal reflux disease presenting with anemia. There was initially concern of gastrointestinal bleed, now status post EGD and colonoscopy with no observable findings of anemia. However, he experienced respiratory distress and hypercapnic respiratory failure resulting in intubation with mechanical ventilation. Elevated liver function tests noted on labs drawn post-intubation. Gastrointestinal bleeding. The patient presented with a recent history of dark or black stools shortly before admission. They were semisolid in nature, concerning for possible upper gastrointestinal bleed; however, he underwent both EGD and colonoscopy during this admission with findings only of esophageal candidiasis shown in the upper gastrointestinal tract and only multiple colonic polyps and hemorrhoids seen in the lower gastrointestinal tract. It was felt that his darker-colored stools prior to admission were more related to dietary intake rather than gastrointestinal bleeding. At this point, his hemoglobin and hematocrit has remained stable throughout the entire hospitalization making the likelihood of active gastrointestinal bleeding highly unlikely. Recommendations: 1) Continue PPI daily for gastroesophageal reflux disease. 2) Would continue to trend H and H and transfuse as necessary to maintain an H and H of 7/21. Elevated LFTs/transaminitis. The patient experienced acute respiratory distress and failure on 07/29/2017 with subsequent intubation and mechanical ventilation. During the process of his respiratory distress, he was noted to be significantly hypotensive as well as severely acidotic with a pH of 7.2. Given the findings of an evolving pneumonia on chest x-ray obtained 07/28/2017, the most likely reason for his respiratory distress and acidosis would be septic shock related to an evolving pneumonia. However, with the hypotension experienced during this episode of septic shock, it could potentially result in significant hepatic injury due to the low oxygenation state of the liver. Right upper quadrant ultrasound obtained today did not show any parenchymal or biliary tree abnormalities that would further contribute to his transaminitis. More recently, he was also placed on oral fluconazole for the treatment of esophageal candidiasis as seen on EGD performed on 07/27/2017. With administration of this medication, it could potentially lead to drug-induced liver injury which could manifest as the hepatocellular distribution noted on AST and ALT today. He had already been on this medication for the last few days but no liver function tests had been drawn to document the temporal relationship between medication and liver injury. At this point, the differential for his transaminitis could include septic shock with hypotension resulting in hepatocellular damage (most likely), acidosis related to septic shock, and drug-induced liver injury due to the recent administration of fluconazole. Recommendations: 1. Would continue to attempt to maintain normotensive pressures in this patient as the most likely reason for transaminitis would be hypotension 2. Would continue to trend LFTs daily to monitor for signs of additional hepatic injury. Would also draw INR daily to assess for possible worsening of liver failure. 3. Would to attempt to discontinue any medications that are potentially hepatotoxic. If concern for intraabdominal pathology resulting in septic shock and/or transaminitis, would consider CT examination. We will continue to follow. Please call with any questions. RAULITO
--- NOTE | 2017-07-30 17:21 | OP ---
PREOPERATIVE DIAGNOSIS: Acute renal failure, in need of emergency dialysis access due to acidosis an d hyperkalemia. POSTOPERATIVE DIAGNOSIS: Acute renal failure, in need of emergency dialysis access due to acidosis a nd hyperkalemia. PROCEDURE PERFORMED: Right femoral vein Trialysis catheter. SURGEON: Dr. Darryl Vieira ANESTHESIA: 1% Xylocaine. PROCEDURE IN DETAIL: At the patient's bedside, right groin was clipped of hair, prepared with Chlora Prep, draped in routine fashion and Seldinger technique used to place the Trialysis catheter, placed in the smaller and medium sized dilators over the J wire and removing them, then placed the Trialysis catheter over the J-wire into the femoral vein and J-wire removed. Catheter secured with 2 interrup antoine sutures of 3-0 silk. Biopatch sterile dressing applied. Wire had been removed. Each port aspir ated blood and flushed with heparinized saline solution. Patient tolerated the procedure well.
--- NOTE | 2017-07-30 17:37 | HP ---
HISTORY OF PRESENT ILLNESS: Gage Tyler is a 76-year-old male patient admitted on 07/25/2017 t o Hospitalist Service for dyspnea and body aches. He has history of alcohol abuse, coronary artery d isease, PAD, atrial fibrillation, pulmonary embolism, BPH, has suffered acute renal failure, has deve loped acidosis. I have been asked by Dr. Alegria to place an emergent temporary dialysis catheter. The patient is on the ventilator. PAST MEDICAL HISTORY: Coronary artery disease, status post coronary artery bypass grafting, 4 vessel s; history of right nephrectomy for renal cancer, no evidence of disease; open reduction internal fix ation of ankle; right lower extremity arterial stent placements, followed by Dr. Lavon Bonds; alcoh ol abuse; PAD, arterial stent in right leg placed; history of chronic atrial fibrillation; pulmonary embolism; hyperlipidemia; renal cell carcinoma; diastolic dysfunction with normal ejection fraction; history of prostate surgery. MEDICATIONS: Outpatient ProAir, Augmentin, Lipitor, Coreg, Multaq, Lasix, Combivent inhaler, levothy roxine, Protonix, pentoxifylline, potassium, Xarelto, Flomax. ALLERGIES: AMIODARONE and IODINE. SOCIAL HISTORY: The patient lives in [place]. He had abused tobacco many years ago. No illicit dr ug use. PHYSICAL EXAMINATION: GENERAL: The patient is on the ventilator. He is sedated. Family is present. History was obtained from them. VITAL SIGNS: 123/74, 74. LUNGS: Clear to auscultation. No wheezing. CARDIAC: Regular rate and rhythm. ABDOMEN: Soft, nontender. Scars per history, sternotomy scar and right subcostal incision per above history, CABG and right nephrectomy. EXTREMITIES: Unremarkable. GENITOURINARY: Essentially anuric. ASSESSMENT AND PLAN: Acute renal failure. Plan placing a hemodialysis catheter. Risks and benefits were discussed, they have consented. The patient has an upper arm cephalic vein IV and this was rem saritha. Ultrasound vein mapping will be obtained. Veins preserved in case he needs more permanent ana lysis access.
--- NOTE | 2017-07-30 19:52 | EKG ---
Test Reason : CODE GREEN Blood Pressure : / mmHG Vent. Rate : 066 BPM Atrial Rate : 073 BPM P-R Int : 000 ms QRS Dur : 142 ms QT Int : 536 ms P-R-T Axes : 000 055 -45 degrees QTc Int : 561 ms Atrial fibrillation Right bundle branch block Abnormal ECG Confirmed by MURPHY FERGUSON, DR. Valladares ([id number]) on 07/30/2017 7:52:45 PM Referred By: EDI Confirmed By:DR. Jacquelyn ARRINGTON MD
[2017-07-31] MEDS: D5 IV SCH (02:22)
[2017-07-31] MEDS: SODIUM BICARBONATE IV SCH (02:22)
[2017-07-31] MEDS: 1/4 NS IV SCH (02:22)
[2017-07-31] MEDS: Levothyroxine 100 MCG SDV IVP SCH (05:24)
[2017-07-31] MEDS: Sodium Bicarbonate 150 MEQ in Dextrose 5% in Water 1,000 ML IV SCH (05:25)
[2017-07-31 05:31] LABS: #Lymphocytes 0.6 thou/uL (1.20-3.40); #Monocytes 0.2 thou/uL (0.11-0.59); #Neutrophils 5.6 thou/uL (1.40-6.50); %Lymphocytes 9.4 % (21.0-51.0); %Monocytes 3.6 % (0.0-10.0); MDiff Complete? YES; Mean Corpuscular HGB CONC 31.3 g/dL (32.0-36.0); Mean Corpuscular Hemoglobin 26.6 pg (27.0-31.0); Mean Corpuscular Volume 84.9 fl (80.0-94.0); Mean Platelet Volume 9.8 fL (7.4-10.4); Platelet Count 129 thou/uL (130-400); RBC Distribution Width 17.8 % (11.5-14.5); Red Blood Cell (RBC) Count 3.75 mill/uL (4.70-6.10); Target Cells SLIGHT = 2-5 cells (100X) (0-1/hpf); White Blood Cell (WBC) Count 6.5 thou/uL (4.8-10.8)
[2017-07-31 05:35] LABS: Lactic Acid 3.1 mmol/L (0.5-2.2)
[2017-07-31 05:41] LABS: ALT (SGPT) 746 U/L (8-55); AST (SGOT) 962 U/L (5-34); Albumin 2.7 g/dL (3.4-4.8); Alkaline Phosphatase 69 U/L (40-150); Anion Gap 14 mmol/L (10-20); BUN (Urea Nitrogen) 38 mg/dL (8.4-25.7); Bilirubin, Total 1.9 mg/dL (0.2-1.2); Calc. Creatinine Clearance 35 mL/min (70-130); Calcium 7.3 mg/dL (7.8-10.44); Carbon Dioxide 27 mmol/L (23-31); Chloride 99 mmol/L (98-107); Estimated GFR-MDRD 37; Globulin 1.7 g/dL (2.4-3.5); Glucose 167 mg/dL (83-110); Potassium 3.9 mmol/L (3.5-5.1); Protein, Total 4.4 g/dL (5.8-8.1); Sodium 136 mmol/L (136-145)
[2017-07-31 07:28] LABS: Actual Bicarbonate (HCO3a) 24.6 mEq/L (22-26); Base Excess (BEa) 0.4 mEq/L (0 (+/-) 2.5); CO2 Tension 37.7 mmHg (35.0-45.0); Hematocrit-ABG 32.3 % (42.0-52.0); O2 Tension (PaO2) 73.2 mmHg (80.0-100.0); pH, Arterial 7.43 (7.35-7.45)
[2017-07-31 07:29] LABS: ALV-art Gradient 70.835 (0-20); Analyzer IN Cardio OR; Calcium, Ionized 0.9 mmol/L (1.12-1.30); Hemoglobin (Hb) 9.7 g/dL (14.0-18.0); Puncture Site RR
--- NOTE | 2017-07-31 07:31 | PDOC.PULCC ---
CCU Progress Note: Subj/Obj - Subjective Date: 07/31/17 Time: 07:29 Narrative: intubated and sedated - Objective Allergies/Adverse Reactions: Allergies Allergy/AdvReac Type Severity Reaction Status Date / Time amiodarone Allergy Intermediate Rash Verified 05/13/17 10:46 iodine Allergy Unknown Verified 05/13/17 10:46 Medications: Current Medications Acetaminophen (Tylenol) 1,000 mg PO Q6H PRN PRN Reason: Headache/Fever or Mild Pain Last Admin: 07/25/17 20:37 Dose: 1,000 mg Albuterol Sulfate (Proventil Hfa) 90 puff INH Q4H PRN PRN Reason: Wheezing Albuterol/Ipratropium (Duoneb) 3 ml NEB V4RH-PC [facility] Last Admin: 07/31/17 02:31 Dose: 3 ml Dronedarone (Multaq) 200 mg PO BID-WM [facility] Last Admin: 07/30/17 17:24 Dose: 200 mg Famotidine (Pepcid) 20 mg PO DAILY [facility] Fluconazole (Diflucan) 200 mg PO DAILY [facility] Last Admin: 07/29/17 09:24 Dose: 200 mg Fentanyl Citrate 2,000 mcg/ (Sodium Chloride) 100 mls @ 0 mls/hr IV INF VARGHESE; Per Protocol PRN Reason: Protocol Stop: 08/28/17 21:47 Last Admin: 07/30/17 09:22 Dose: 100 mls Fentanyl Citrate (Fentanyl Bolus) 250 mls @ 0 mls/hr IVPB PRN PRN; As Directed PRN Reason: Breakthrough pain Stop: 08/28/17 21:47 Last Admin: 07/30/17 09:43 Dose: 2.5 mls Piperacillin Sod/Tazobactam (Sod 2.25 gm/ Sodium Chloride) 100 mls @ 200 mls/ hr IVPB Q12HR [facility] Last Admin: 07/30/17 20:06 Dose: 100 mls Vancomycin HCl 1.25 gm/ Sodium (Chloride) 250 mls @ 166.667 mls/hr IVPB 1400 [facility] Last Admin: 07/30/17 13:56 Dose: 250 mls Levothyroxine Sodium (Synthroid) 25 mcg IVP 0600 [facility] Last Admin: 07/31/17 05:24 Dose: 25 mcg Lorazepam (Ativan) 2 mg SLOW IVP Q2H PRN PRN Reason: Anxiety to achieve Barr 2-3 Stop: 08/28/17 21:47 Mineral Oil/White Petrolatum (Lacri-Lube Ointment) 0 gm EA EYE PRN PRN PRN Reason: Dry Eyes Miscellaneous Medication (Pharmacy To Dose) 1 each IVPB PRN PRN PRN Reason: Pharmacy to dose Morphine Sulfate (Morphine) 2 mg SLOW IVP Q2H PRN PRN Reason: Breakthrough pain Stop: 08/28/17 21:47 Discontinue Previous Narcotic Pain Medications And Benzodiazepines 1 each FS .ONE VARGHESE Stop: 08/28/17 21:47 Ondansetron HCl (Zofran Odt) 4 mg PO Q6H PRN PRN Reason: Nausea/Vomiting Ondansetron HCl (Zofran) 4 mg IVP Q6H PRN PRN Reason: Nausea/Vomiting Last Admin: 07/29/17 13:32 Dose: 4 mg Propofol (Diprivan) 1,000 mg IV INF PRN; Protocol PRN Reason: TO ACHIEVE BARR SCORE 2-3 Stop: 08/28/17 21:47 Last Admin: 07/30/17 15:10 Dose: 1,000 mg Sodium Chloride (Flush - Normal Saline) 10 ml IVF Q12HR VARGHESE Last Admin: 07/30/17 20:04 Dose: 10 ml Sodium Chloride (Flush - Normal Saline) 10 ml IVF PRN PRN PRN Reason: Saline Flush Throat Lozenges (Cepastat Lozenges) 1 anthony PO Q2H PRN PRN Reason: Sore Throat MAR Reviewed: Yes Vital Signs and I&O: Vital Signs Temp 99.1 F 07/31/17 04:00 Pulse 67 07/31/17 02:32 Resp 18 07/31/17 06:00 BP 114/57 L 07/31/17 02:32 Pulse Ox 100 07/30/17 20:00 Intake & Output 07/30/17 07/31/17 07/31/17 18:59 06:59 18:59 Intake Total 1148.6 2511.4 Output Total 300 320 Balance 848.6 2191.4 Weight 171 lb 8.314 oz 158 lb 8.198 oz Intake: Intake, IV Amount 1148.6 2511.4 Propofol 1000 mg (See 96 44.4 Protocol) IV INF PRN Rx#: [id number] Sodium Bicarbonate 150 2467 meq In Dextrose 5% in Water 1,000 ml @ 75 mls/ hr IV .[id number] [facility] Rx#: [id number] Sodium Bicarbonate 70 meq 1000 In D5 / Ns 1,000 ml @ 125 mls/hr IV .[id number] [facility] Rx#:[id number] Citrate/PF 2,000 52.6 mcg In Sodium Chloride 0 .9% 60 ml @ Per Protocol IV INF [facility] Rx#:[id number] Oral 0 Output: Output, Hood 300 320 Other: Voiding Method Indwelling Catheter Indwelling Catheter Vent Setting: Vent Adult Resp: Vent Adult Start: 07/30/17 07:30 Freq: CONTINUOUS Status: Active Protocol: Activity Type Activity Date Activity User E-Sign Co-Sign Detail Recorded Client Recorded Date Recorded By Document 07/31/17 02:32 CMB [id number] 07/31/17 02:33 CMB 07/31/17 02:32 RT: Ventilator Ventilator Status Charge Maintain Vent Mode AC Mandatory Breath Type Pressure RR-Set 17 RR-Spontaneous 3 TV- Delivered 556 FIO2 27 PEEP 5 PIP (cmH2O) 19 I-Time (seconds) 0.8 VE (L/min) 8.4 Heater Temp (degrees C) 34.9 HR (60-100) 67 BP (90/60-140/90) 114/57 SPO2 100 Respiratory Comment moved ett,pi=13 Breath Sounds Clear Diminished Respiratory Treatment Given Yes Ambu Bag/ Mask at Bedside Yes Plugged in to Emergency Outlet Yes Spontaneous Breathing Test: not done CCU Progress Note: Exam - Physical Exam Constitutional: NAD HEENT: PERRLA, sclera anicteric Deviation from normal: prominent jugular venous wave Cardiovascular: RRR Respiratory: clear to auscultation bilaterally Deviation from normal: soft, but no BS Musculoskeletal: no edema Neurological: moves all 4 limbs Deviation from normal: sedated Skin: no rash CCU Progress Note: Data - Labs Result Diagrams: 07/31/17 04:00 07/31/17 04:00 Lab results: Laboratory Results 07/29/17 07/29/17 07/29/17 19:05 19:20 20:05 WBC RBC Hgb Hct MCV MCH MCHC RDW Plt Count MPV Neutrophils % Neutrophils % (Manual) Band Neuts % (Manual) Lymphocytes % Lymphocytes % (Manual) Monocytes % Monocytes % (Manual) Eosinophils % Basophils % Neutrophils # Lymphocytes # Monocytes # Eosinophils # Basophils # Plt Morphology Comment Target Cells Dashawn Cells Specimen Type ARTERIAL ART Puncture Site HERMAN RBR Bicarbonate Actual 6.4 L 9.5 L ABG pH 7.22 L* 7.23 L* ABG pCO2 16.0 L* 23.3 L* ABG pO2 33.7 L* 306.7 H ABG O2 Sat Calc/Christina 37.5 L* 99.7 ABG O2 Content 2.9 L 15.4 L ABG Base Excess 19.6 H -16.3 L ABG Hematocrit 16.3 L 37.8 L ABG Hemoglobin 5.5 L 10.6 L ABG Oxyhemoglobin 36.7 L 97.6 H ABG Carboxyhemoglobin 1.3 1.5 ABG Methemoglobin 0.9 0.6 ABG Deoxyhemoglobin 61.1 H Mathieu Test POSITIVE A-a O2 Gradient 88.975 H Ionized Calcium 0.6 L 1.1 L Mode of Support NIV % Minute Volume Mechanical Rate Spontaneous Rate Inspired O2 28 60 Inspiratory Time Tidal Volume Peak Inspir Pressure Pressure Support 10 PEEP or CPAP 5.0 Sodium 142 132 L Potassium 2.1 L 6.0 H Chloride 118 H 99 Carbon Dioxide Anion Gap BUN Creatinine Estimated GFR (MDRD) Glucose POC Glucose Lactic Acid 10.1 H* Calcium Phosphorus Magnesium Total Bilirubin AST ALT Alkaline Phosphatase Troponin I Serum Total Protein Albumin Globulin Albumin/Globulin Ratio Amylase Lipase Vancomycin Trough Hep Bs Antigen 07/29/17 07/30/17 07/30/17 22:20 04:14 04:14 WBC RBC Hgb Hct MCV MCH MCHC RDW Plt Count MPV Neutrophils % Neutrophils % (Manual) Band Neuts % (Manual) Lymphocytes % Lymphocytes % (Manual) Monocytes % Monocytes % (Manual) Eosinophils % Basophils % Neutrophils # Lymphocytes # Monocytes # Eosinophils # Basophils # Plt Morphology Comment Target Cells [place] Cells Specimen Type ARTERIAL Puncture Site RRA Bicarbonate Actual 7.9 L ABG pH 7.30 L ABG pCO2 16.5 L* ABG pO2 236.4 H ABG O2 Sat Calc/Christina 99.6 ABG O2 Content 15.0 L ABG Base Excess -16.4 L ABG Hematocrit 36.9 L ABG Hemoglobin 10.5 L ABG Oxyhemoglobin 97.5 H ABG Carboxyhemoglobin 1.5 ABG Methemoglobin 0.6 ABG Deoxyhemoglobin 0.4 Mathieu Test POSITIVE A-a O2 Gradient 78.085 H Ionized Calcium 1.0 L Mode of Support AC % Minute Volume 19.0 Mechanical Rate 17 Spontaneous Rate Inspired O2 47 Inspiratory Time 0.80 Tidal Volume Peak Inspir Pressure Pressure Support PEEP or CPAP 5.0 Sodium 131 L 132 L Potassium 5.8 H 6.5 H Chloride 100 102 Carbon Dioxide Less than 8 L* Anion Gap TNP BUN 54 H Creatinine 2.54 H Estimated GFR (MDRD) 25 Glucose 63 L POC Glucose Lactic Acid 12.0 H* Calcium 8.0 Phosphorus 8.3 H Magnesium 2.0 Total Bilirubin 2.2 H AST 766 H ALT 419 H Alkaline Phosphatase 83 Troponin I Serum Total Protein 5.7 L Albumin 3.4 Globulin 2.3 L Albumin/Globulin Ratio 1.5 Amylase Lipase Vancomycin Trough Hep Bs Antigen 07/30/17 07/30/17 07/30/17 04:14 04:14 08:00 WBC 10.8 RBC 4.14 L Hgb 11.2 L Hct 37.3 L MCV 90.2 MCH 27.1 MCHC 30.1 L RDW 18.1 H Plt Count 160 MPV 10.6 H Neutrophils % Neutrophils % (Manual) 79 H Band Neuts % (Manual) 8 Lymphocytes % Lymphocytes % (Manual) 9 L Monocytes % Monocytes % (Manual) 4 Eosinophils % Basophils % Neutrophils # Not Reportable Lymphocytes # Not Reportable Monocytes # Eosinophils # Basophils # Plt Morphology Comment Appears Adequate Target Cells Stan[place] Cells MODERATE= 6-15 cells Specimen Type ARTERIAL Puncture Site RRA Bicarbonate Actual 9.5 L ABG pH 7.40 ABG pCO2 15.5 L* ABG pO2 125.5 H ABG O2 Sat Calc/Christina 98.8 ABG O2 Content 13.8 L ABG Base Excess -13.1 L ABG Hematocrit 35.4 L ABG Hemoglobin 9.9 L ABG Oxyhemoglobin 96.7 ABG Carboxyhemoglobin 1.5 ABG Methemoglobin 0.7 ABG Deoxyhemoglobin Mathieu Test POSITIVE A-a O2 Gradient 46.285 H Ionized Calcium 0.9 L Mode of Support AC % Minute Volume Mechanical Rate 17 Spontaneous Rate 5 Inspired O2 27 Inspiratory Time 0.85 Tidal Volume 621 Peak Inspir Pressure 13 Pressure Support PEEP or CPAP 5.0 Sodium 132 L Potassium 5.4 H Chloride 98 Carbon Dioxide Anion Gap BUN Creatinine Estimated GFR (MDRD) Glucose POC Glucose Lactic Acid Calcium Phosphorus Magnesium Total Bilirubin AST ALT Alkaline Phosphatase Troponin I Serum Total Protein Albumin Globulin Albumin/Globulin Ratio Amylase 170.0 H Lipase 104 H Vancomycin Trough Hep Bs Antigen 07/30/17 07/30/17 07/30/17 11:38 12:47 15:18 WBC RBC Hgb Hct MCV MCH MCHC RDW Plt Count MPV Neutrophils % Neutrophils % (Manual) Band Neuts % (Manual) Lymphocytes % Lymphocytes % (Manual) Monocytes % Monocytes % (Manual) Eosinophils % Basophils % Neutrophils # Lymphocytes # Monocytes # Eosinophils # Basophils # Plt Morphology Comment Target Cells Dashawn Cells Specimen Type Puncture Site Bicarbonate Actual ABG pH ABG pCO2 ABG pO2 ABG O2 Sat Calc/Christina ABG O2 Content ABG Base Excess ABG Hematocrit ABG Hemoglobin ABG Oxyhemoglobin ABG Carboxyhemoglobin ABG Methemoglobin ABG Deoxyhemoglobin Mathieu Test A-a O2 Gradient Ionized Calcium Mode of Support % Minute Volume Mechanical Rate Spontaneous Rate Inspired O2 Inspiratory Time Tidal Volume Peak Inspir Pressure Pressure Support PEEP or CPAP Sodium Potassium 3.9 Chloride Carbon Dioxide Anion Gap BUN Creatinine Estimated GFR (MDRD) Glucose POC Glucose Lactic Acid Calcium Phosphorus Magnesium Total Bilirubin AST ALT Alkaline Phosphatase Troponin I Serum Total Protein Albumin Globulin Albumin/Globulin Ratio Amylase Lipase Vancomycin Trough 12.3 Hep Bs Antigen Non-Reactive 07/31/17 07/31/17 07/31/17 04:00 04:00 04:00 WBC 6.5 RBC 3.75 L Hgb 10.0 L Hct 31.9 L MCV 84.9 MCH 26.6 L MCHC 31.3 L RDW 17.8 H Plt Count 129 L MPV 9.8 Neutrophils % 87.0 H Neutrophils % (Manual) Band Neuts % (Manual) Lymphocytes % 9.4 L Lymphocytes % (Manual) Monocytes % 3.6 Monocytes % (Manual) Eosinophils % 0.0 Basophils % 0.0 Neutrophils # 5.6 Lymphocytes # 0.6 L Monocytes # 0.2 Eosinophils # 0.0 Basophils # 0.0 Plt Morphology Comment Target Cells SLIGHT = 2-5 cells Stanfield Cells Specimen Type Puncture Site Bicarbonate Actual ABG pH ABG pCO2 ABG pO2 ABG O2 Sat Calc/Christina ABG O2 Content ABG Base Excess ABG Hematocrit ABG Hemoglobin ABG Oxyhemoglobin ABG Carboxyhemoglobin ABG Methemoglobin ABG Deoxyhemoglobin Mathieu Test A-a O2 Gradient Ionized Calcium Mode of Support % Minute Volume Mechanical Rate Spontaneous Rate Inspired O2 Inspiratory Time Tidal Volume Peak Inspir Pressure Pressure Support PEEP or CPAP Sodium 136 Potassium 3.9 Chloride 99 Carbon Dioxide 27 Anion Gap 14 BUN 38 H Creatinine 1.81 H Estimated GFR (MDRD) 37 Glucose 167 H POC Glucose Lactic Acid 3.1 H Calcium 7.3 L Phosphorus Magnesium Total Bilirubin 1.9 H AST 962 H ALT 746 H Alkaline Phosphatase 69 Troponin I Serum Total Protein 4.4 L Albumin 2.7 L Globulin 1.7 L Albumin/Globulin Ratio 1.6 Amylase Lipase Vancomycin Trough Hep Bs Antigen - ABG Interpretation Attestation: I reviewed and interpreted this ABG. ABG Results: ABG pH 7.40 (7.35-7.45) 07/30/17 08:00 ABG pCO2 15.5 mmHg (35.0-45.0) L* 07/30/17 08:00 ABG O2 Sat Calc/Christina 98.8 % (94.0-100.0) 07/30/17 08:00 ABG Base Excess -13.1 mEq/L (0 (+/-) 2.5) L 07/30/17 08:00 Interpretation: metabolic acidosis - Radiology Interpretation Chest x-ray Status: image reviewed by me Additional comments: no significant changes CCU Progress Note: A/P - Problems (1) Acute respiratory failure with hypoxia Current Visit: Yes Status: Acute Code(s): J96.01 - ACUTE RESPIRATORY FAILURE WITH HYPOXIA (2) Acute renal failure Current Visit: Yes Status: Acute Qualifiers: Acute renal failure type: with acute tubular necrosis Qualified Code(s): N17.0 - Acute kidney failure with tubular necrosis (3) Chronic atrial fibrillation Current Visit: Yes Status: Acute Code(s): I48.2 - CHRONIC ATRIAL FIBRILLATION (4) Influenza A Current Visit: Yes Status: Acute Code(s): J10.1 - FLU DUE TO OTH IDENT INFLUENZA VIRUS W OTH RESP MANIFEST - Time Spent with Patient Time (minutes): 30 - Plan Plan: change to SIMV mode Dc bicarb drip would leave intubated at least 24 more hours f/u LFTs Check echo, specifically to r/o pericardial effusion and constrictive pericarditis await further GI input
--- NOTE | 2017-07-31 08:08 | RAD ---
SINGLE VIEW OF THE CHEST: COMPARISON: 07/30/17. HISTORY: Ventilated patient with respiratory failure. FINDINGS: A single view of the chest shows an enlarged but stable cardiomediastinal silhouette. The patient is status post CABG. The lines and tubes are unchanged in position. Increased interstitial lung david ngs and biapical pleural thickening are stable. There is no evidence of consolidation, mass, or pleu ral effusion. IMPRESSION: Stable exam. POS: [facility]
[2017-07-31] MEDS: Piperacillin/Tazobactam 2.25 GM in Sodium Chloride 0.9% 100 ML IVPB SCH ×2 (08:50→20:04)
[2017-07-31] MEDS: Dronedarone HCl 400 MG TAB PO SCH ×2 (08:50→17:10)
[2017-07-31] MEDS: Fluconazole 100 MG TAB PO SCH (08:50)
[2017-07-31] MEDS: Famotidine 20 MG TAB PO SCH (08:50)
[2017-07-31] MEDS: Sodium Chloride 0.45% 1,000 ML IV SCH (08:51)
--- NOTE | 2017-07-31 11:41 | PRG ---
DATE OF SERVICE: 07/31/2017 SUBJECTIVE: This is a 76-year-old gentleman being seen for acute kidney injury. PHYSICAL EXAMINATION: GENERAL: The patient is intubated and resting. Awake, alert, in no acute distress. VITAL SIGNS: Afebrile, pulse 73, breathing at 16, blood pressure 111/62. OBJECTIVE: See above. GENERAL APPEARANCE AND MENTAL STATUS: Fair. HEAD/NECK: Normocephalic. Atraumatic. EYES: EOMI. No deformity. EARS: Clear. No ulcers. NOSE: Intact. No lesions. MOUTH: Clear. No discharge. THROAT: Clear. No exudate. LUNGS: Clear. No crackles. CARDIAC: S1, S2. No rub. ABDOMEN: Benign. BS+. GENITALIA/RECTUM: Hood absent. BACK/EXTREMITIES: Edema 0+ Ulcer- NEUROLOGICAL: Alert and motor intact. The patient is resting. SKIN: Rash- Bruise- LYMPHATICS: Edema- Ulcer- LABORATORY DATA: Hemoglobin is 10. Potassium is 3.9, creatinine 1.8. IMPRESSION: 1. Acute kidney injury, improved. Nonoliguric. 2. Metabolic acidosis, improved. 3. Hyperkalemia, improved. No indication for dialysis. At this time, we will follow the patient's renal function closely.
[2017-07-31] MEDS: Propofol 1,000 MG/100 ML VIAL IV PRN (12:45)
--- NOTE | 2017-07-31 13:37 | PRG ---
DATE OF SERVICE: 07/31/2017 SUBJECTIVE: The patient did well overnight with no acute events or problems overnight. He did not have any further episodes of hypotension and has shown an improvement in the clinical status while on mechanical ventilation. Currently on minimal sedation with patient arousable, but not necessarily following commands. Per nursing report, there have been no episodes of GI bleeding, jaundice or abnormal abdominal distention. OBJECTIVE: VITAL SIGNS: Temperature of 98.2, pulse of 66, blood pressure 102/53, satting 100% on mechanical ventilation. GENERAL: Patient is lying comfortably in bed in no acute distress. He is arousable to verbal and tactile stimuli, but is not following commands. CARDIOVASCULAR: Irregularly irregular rhythm with no discernible murmurs, gallops, or rubs. RESPIRATORY: Coarse breath sounds heard in all lung haile consistent with mechanical ventilation. ABDOMEN: Normoactive bowel sounds, soft, nontender, nondistended. EXTREMITIES: No cyanosis, clubbing or edema. LABORATORY DATA: CBC with a white blood cell count of 6.5, hemoglobin 10, hematocrit 31.9, and platelets 129. Chemistry with sodium of 136, potassium 3.9 , chloride 99, CO2 27, BUN 38, creatinine 1.81, glucose 167, AST 962, ALT 746, alkaline phosphatase 69, total bilirubin 1.9, lipase 104. IMAGING STUDIES: Chest x-ray obtained on 07/31/2017 shows an enlarged, but stable cardiomediastinal silhouette. The lines and tubes are unchanged in position, increased interstitial lung markings and biapical pleural thickening are stable. There is no evidence of consolidation, mass or pleural effusion. ASSESSMENT AND PLAN: The patient is a 76-year-old male with past medical history of congestive heart failure, chronic atrial fibrillation on anticoagulation, peripheral vascular disease, pulmonary embolism, hyperlipidemia , renal cell carcinoma, status post right nephrectomy, hypothyroidism, prostate cancer, status post transurethral resection of the prostate and gastroesophageal reflux disease, initially presenting with anemia, but now with respiratory distress and hypercapnic respiratory failure resulting in intubation and mechanical ventilation and elevated liver function tests. Transaminitis The patient experienced acute respiratory failure on 07/29/2017 with subsequent intubation and mechanical ventilation. During the period of time prior to intubation, he was noted to be significantly hypotensive as well as severely acidotic with pH of 7.2. Right upper quadrant ultrasound obtained did not show any parenchymal or biliary tree abnormalities that would further contribute to the transaminitis; however, he was recently placed on oral fluconazole for the treatment of esophageal candidiasis seen on the EGD performed on 07/27/2017. At this time, his transaminitis could be multifactorial to include a differential of hypotension resulting in low flow state and poor oxygenation of the liver, severe acidosis also causing an hepatocellular injury as noted by his primary AST/ALT elevation, drug induced liver injury caused by recent introduction of fluconazole to his regimen, or lastly, possible vascular insufficiency due to thrombus formation within the hepatic arterial system ( highly unlikely based on ultrasound findings). RECOMMENDATIONS: 1. Would continue to attempt to maintain normotensive pressures in this patient as most likely reason for transaminitis would be severe hypotension. 2. Would continue to trend LFTs daily and monitor for signs of additional hepatic injury. Would also draw INR daily to assess for possible worsening liver failure. 3. We will discontinue fluconazole today as a possible hepatotoxic medication that could induce continued transaminitis. 4. If LFTs continue to rise, would consider repeat RUQ ultrasound with Doppler to assess for thrombosis within the hepatic vasculature We will continue to follow. Please call with any questions. MTDD
[2017-07-31] MEDS: Vancomycin HCl 1.25 GM in Sodium Chloride 0.9% 250 ML 250 ML IVPB SCH (14:07)
[2017-07-31] MEDS: fentaNYL Citrate/PF 2,000 MCG in Sodium Chloride 0.9% 60 ML IV SCH (17:10)
--- NOTE | 2017-07-31 18:12 | PDOC.PN ---
- Subjective Encounter Start Date: 07/31/17 Encounter Start Time: 18:11 -: non-verbal Subjective: intubated - Objective Resuscitation Status: Resuscitation Status FULL:Full Resuscitation Vital Signs & Weight: Vital Signs (12 hours) Temp Pulse Resp BP Pulse Ox 07/31/17 18:00 17 07/31/17 16:00 98.7 F 17 07/31/17 14:35 64 115/63 07/31/17 14:00 17 07/31/17 12:00 98.9 F 17 07/31/17 10:19 64 116/61 07/31/17 10:00 17 07/31/17 08:00 98.2 F 64 17 100 07/31/17 07:38 66 101/62 Weight Admit Weight 150 lb Weight 158 lb Most Recent Monitor Data Heart Rate from ECG 76 NIBP 113/64 NIBP BP-Mean 75 Respiration from ECG 13 SpO2 99 I&O: 07/30/17 07/31/17 08/01/17 06:59 06:59 06:59 Intake Total 4051.1 3660.0 1174.8 Output Total 812 620 545 Balance 3239.1 3040.0 629.8 Result Diagrams: 07/31/17 04:00 07/31/17 04:00 Phys Exam - Physical Examination intubated HEENT: PERRLA Neck: no nodes, no JVD, supple, full ROM Respiratory: no wheezing vented sounds Cardiovascular: RRR, no significant murmur, no rub Gastrointestinal: soft, non-tender, no distention, positive bowel sounds Musculoskeletal: no edema, pulses present Dx/Plan (1) Acute renal failure Status: Acute Qualifiers: Acute renal failure type: with acute tubular necrosis Qualified Code(s): N17.0 - Acute kidney failure with tubular necrosis (2) Acute respiratory failure with hypoxia Code(s): J96.01 - ACUTE RESPIRATORY FAILURE WITH HYPOXIA Status: Acute (3) Chronic atrial fibrillation Code(s): I48.2 - CHRONIC ATRIAL FIBRILLATION Status: Acute Comment: Rate variable, continue Coreg and Multaq, hold anticoagulation due to guaiac + stools (4) Colon polyps Code(s): K63.5 - POLYP OF COLON Status: Acute (5) Dehydration Code(s): E86.0 - DEHYDRATION Status: Acute Comment: Resolving, continue IVF' s another 24h then d/c (6) General weakness Code(s): R53.1 - WEAKNESS Status: Acute Comment: Secondary to #1 (7) Guaiac positive stools Status: Acute Comment: hx of GI bleed currently on Trental, Prednisone and Xarelto. 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
[2017-08-01] MEDS: Sodium Chloride 0.45% 1,000 ML IV SCH ×2 (00:04→11:23)
[2017-08-01] MEDS: Levothyroxine 100 MCG SDV IVP SCH (05:11)
[2017-08-01 05:37] LABS: #Lymphocytes 0.6 thou/uL (1.20-3.40); #Monocytes 0.3 thou/uL (0.11-0.59); %Basophils 0.2 % (0.0-1.0); %Eosinophils 0.1 % (0.0-10.0); %Lymphocytes 7.8 % (21.0-51.0); %Monocytes 4.1 % (0.0-10.0); %Neutrophils 87.7 % (42.0-75.0); Hemoglobin 9.9 g/dL (14.0-18.0); Mean Corpuscular HGB CONC 31.2 g/dL (32.0-36.0); Mean Corpuscular Hemoglobin 26.3 pg (27.0-31.0); Mean Corpuscular Volume 84.4 fl (80.0-94.0); Mean Platelet Volume 10.6 fL (7.4-10.4); Platelet Count 113 thou/uL (130-400); RBC Distribution Width 17.8 % (11.5-14.5); Red Blood Cell (RBC) Count 3.76 mill/uL (4.70-6.10); White Blood Cell (WBC) Count 7.9 thou/uL (4.8-10.8)
[2017-08-01 06:01] LABS: ALT (SGPT) 843 U/L (8-55); AST (SGOT) 845 U/L (5-34); Albumin 2.6 g/dL (3.4-4.8); Alkaline Phosphatase 69 U/L (40-150); Anion Gap 10 mmol/L (10-20); BUN (Urea Nitrogen) 38 mg/dL (8.4-25.7); Bilirubin, Total 2.1 mg/dL (0.2-1.2); Calc. Creatinine Clearance 45 mL/min (70-130); Calcium 7.5 mg/dL (7.8-10.44); Carbon Dioxide 27 mmol/L (23-31); Chloride 101 mmol/L (98-107); Estimated GFR-MDRD 48; Globulin 1.8 g/dL (2.4-3.5); Glucose 124 mg/dL (83-110); Potassium 3.4 mmol/L (3.5-5.1); Protein, Total 4.4 g/dL (5.8-8.1); Sodium 135 mmol/L (136-145)
[2017-08-01 06:34] LABS: Actual Bicarbonate (HCO3a) 24.5 mEq/L (22-26); Base Excess (BEa) 0.8 mEq/L (0 (+/-) 2.5); CO2 Tension 35.3 mmHg (35.0-45.0); Hematocrit-ABG 33.1 % (42.0-52.0); Hemoglobin (Hb) 9.6 g/dL (14.0-18.0); O2 Tension (PaO2) 74.8 mmHg (80.0-100.0); pH, Arterial 7.46 (7.35-7.45)
[2017-08-01 06:35] LABS: ALV-art Gradient 72.235 (0-20); Puncture Site RRA
[2017-08-01] MEDS: Piperacillin/Tazobactam 2.25 GM in Sodium Chloride 0.9% 100 ML IVPB SCH ×2 (08:25→21:37)
[2017-08-01] MEDS: Famotidine 20 MG TAB PO SCH (08:25)
[2017-08-01] MEDS: Dronedarone HCl 400 MG TAB PO SCH ×2 (08:25→17:28)
--- NOTE | 2017-08-01 09:07 | RAD ---
SINGLE VIEW OF THE CHEST: COMPARISON: 07/31/17. HISTORY: Ventilated patient with respiratory failure. FINDINGS: A single view of the chest shows an enlarged but stable cardiomediastinal silhouette. The patient is status post CABG. The lines and tubes are unchanged in position. Increased interstitial lung david ngs are present. IMPRESSION: Stable exam. POS: [facility]
[2017-08-01 10:33] LABS: INR-International Normal Ratio 1.5; Prothrombin Time 18.7 SEC (12.0-14.7)
--- NOTE | 2017-08-01 10:54 | PRG ---
DATE OF SERVICE: 08/01/2017 SUBJECTIVE: This is a 76-year-old gentleman being seen for acute kidney injury. The patient denies any nausea. The patient is intubated. PHYSICAL EXAMINATION: GENERAL: Patient is resting. VITAL SIGNS: Afebrile, pulse 72, breathing at 16, blood pressure 127/72. HEAD/NECK: Normocephalic. Atraumatic. EYES: EOMI. No deformity. EARS: Clear. No ulcers. NOSE: Intact. No lesions. MOUTH: Clear. No discharge. THROAT: Clear. No exudate. LUNGS: Clear. No crackles. CARDIAC: S1, S2. No rub. ABDOMEN: Benign. BS+. GENITALIA/RECTUM: Hood absent. BACK/EXTREMITIES: Edema 0+ Ulcer- NEUROLOGICAL: The patient is resting and intubated. SKIN: Rash- Bruise- LYMPHATICS: Edema- Ulcer- LABORATORY DATA: Show hemoglobin 9.9, potassium 3.4, creatinine 1.4. ASSESSMENT AND PLAN: 1. Acute kidney injury, nonoliguric, resolved. 2. Metabolic acidosis, stable. 3. Hyperkalemia, stable. No indication for dialysis. Patient can have the catheter removed. 4. Elevated liver enzymes, improving.
--- NOTE | 2017-08-01 13:00 | PDOC.PN ---
- Subjective Encounter Start Date: 08/01/17 Encounter Start Time: 12:59 Subjective: Seen and examined still intubated - Objective Resuscitation Status: Resuscitation Status FULL:Full Resuscitation Vital Signs & Weight: Vital Signs (12 hours) Temp Pulse Resp BP Pulse Ox 08/01/17 10:21 78 127/72 08/01/17 10:00 16 08/01/17 08:00 98.1 F 78 16 98 08/01/17 07:14 83 128/72 08/01/17 06:00 20 08/01/17 04:00 98.6 F 21 H 08/01/17 02:30 68 122/67 08/01/17 02:00 23 H Weight Admit Weight 150 lb Weight 162 lb 11.218 oz Most Recent Monitor Data Heart Rate from ECG 79 NIBP 125/71 NIBP BP-Mean 82 Respiration from ECG 10 SpO2 100 I&O: 07/31/17 08/01/17 08/02/17 06:59 06:59 06:59 Intake Total 3673.9 2290.1 31.4 Output Total 620 1190 100 Balance 3053.9 1100.1 -68.6 Result Diagrams: 08/01/17 05:15 08/01/17 05:15 Phys Exam - Physical Examination Constitutional: NAD intubated HEENT: oral pharynx no lesions Neck: no nodes, no JVD, supple Vented sounds Cardiovascular: RRR, no significant murmur, no rub Gastrointestinal: soft, non-tender, no distention, positive bowel sounds Musculoskeletal: pulses present, edema present Dx/Plan (1) Acute renal failure Status: Acute Qualifiers: Acute renal failure type: with acute tubular necrosis Qualified Code(s): N17.0 - Acute kidney failure with tubular necrosis (2) Acute respiratory failure with hypoxia Code(s): J96.01 - ACUTE RESPIRATORY FAILURE WITH HYPOXIA Status: Acute (3) Chronic atrial fibrillation Code(s): I48.2 - CHRONIC ATRIAL FIBRILLATION Status: Acute Comment: Rate variable, continue Coreg and Multaq, hold anticoagulation due to guaiac + stools (4) Colon polyps Code(s): K63.5 - POLYP OF COLON Status: Acute (5) Dehydration Code(s): E86.0 - DEHYDRATION Status: Acute Comment: Resolving, continue IVF' s another 24h then d/c (6) General weakness Code(s): R53.1 - WEAKNESS Status: Acute Comment: Secondary to #1 (7) Guaiac positive stools Status: Acute Comment: hx of GI bleed currently on Trental, Prednisone and Xarelto. 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
[2017-08-01] MEDS ORDERED: Furosemide 40 MG/4 ML VIAL SLOW IVP SCH (13:15)
[2017-08-01] MEDS: Propofol 1,000 MG/100 ML VIAL IV PRN (17:27)
--- NOTE | 2017-08-01 18:52 | PRG ---
DATE OF SERVICE: 08/01/2017 SUBJECTIVE: Mr. Tyler's hemodynamics are stable. Input is 2290 and output is 1190 for a positive 1 101 mL. He is actually up 7500 mL over the last 4 days. OBJECTIVE: VITAL SIGNS: His respiratory rate 24, blood pressure is 116/63. LUNGS: Remarkable for coarse equal breath sounds. HEART: Regular rhythm. ABDOMEN: Soft. LABORATORY DATA: White count 7.9, hemoglobin 9.9, platelets 113,000. Sodium 135, potassium 3.4, chloride 101, bicarb 27, BUN 38, creatinine 1.42. Chest radiograph was reviewed by me. Chest radiograph is unchanged. He has increased interstitial m arkings. PH 7.46, CO2 of 35, pO2 of 74. He was on an IMV of 12. An INR was rechecked today, still slightly elevated. His IMV was turned down to 6 today. His family was in the room and I answered all of their questions that were offered up. His biggest problem, and they quickly acknowledged, is that he is very weak. His premorbid functiona l status was quite poor talking to family. We will continue to proceed slowly hoping to successfully gradually weaning from mechanical ventilation, but the biggest obstacle appears to be his premorbid weakness. PROBLEM LIST: 1. Acute respiratory failure with hypoxia, mechanically ventilated. His ventilator has been decreas ed. 2. Acute renal failure with acute tubular necrosis. 3. Atrial fibrillation. 4. Elevated liver enzymes that are slowly improving. 5. Influenza. 6. Auto anticoagulation. IMPRESSION: Successful anticoagulation with his p.o. anticoagulants on presentation. Apparently, th is appears to be improving. I also met with stone gluer on-call and discussed his care. Critical care time, 30 minutes.
--- NOTE | 2017-08-01 20:06 | PRG ---
DATE OF SERVICE: 08/01/2017 SUBJECTIVE: Mr. Tyler remains intubated and sedated. Nurses note no adverse events overnight. MEDICATIONS: Tylenol, DuoNeb, Multaq, Pepcid, Synthroid, Solu-Medrol, Zofran, propofol, half-normal saline at 75 an hour. OBJECTIVE: VITAL SIGNS: Temperature 98, pulse 79, blood pressure 126/69. I's and O's, 2290 in and 1190 out. GENERAL: On exam, he is intubated and sedated. NECK: Supple. LUNGS: Clear. CARDIAC: Regular rate and rhythm without clicks or murmurs. ABDOMEN: Nontender, without palpable hepatosplenomegaly. EXTREMITIES: No edema. LABORATORY DATA: White count 7.9, hemoglobin 9.9, platelet count 113,000. INR is 1.5, pH 7.46. Sod ium is 135, potassium 3.4, BUN and creatinine are 38 and 1.42. Bilirubin is 2.1. AST and ALT are 84 5 and 843. ASSESSMENT: 1. Acute respiratory failure and hypoxemia, acute renal failure, improving; chronic atrial fibrillat ion; Influenza A. 2. Regarding elevated liver enzymes, these were normal at the beginning of the hospitalization and s hot up on 07/30/2017. Apparently the same day, he decompensated, again it is unclear if this is rela antoine to right lobe pneumonia or flu, could be medication related, his Diflucan was stopped yesterday. His liver function tests are stable. It was felt that this was all shock liver, that again a toxic component to be considered, it may have also been viral delayed related to his influenza A. PLAN: We will repeat liver function tests and INR tomorrow. If we are still not seeing improvement, we will consider getting an ultrasound Doppler of the liver to rule out hepatic vein thrombosis.
[2017-08-01] MEDS ORDERED: Enoxaparin Sodium 60 MG/0.6 ML SYRINGE SC SCH (21:00)
[2017-08-02 05:05] LABS: ALT (SGPT) 787 U/L (8-55); AST (SGOT) 574 U/L (5-34); Albumin 2.6 g/dL (3.4-4.8); Alkaline Phosphatase 68 U/L (40-150); Anion Gap 11 mmol/L (10-20); BUN (Urea Nitrogen) 38 mg/dL (8.4-25.7); Bilirubin, Total 2.4 mg/dL (0.2-1.2); Calc. Creatinine Clearance 50 mL/min (70-130); Calcium 7.7 mg/dL (7.8-10.44); Carbon Dioxide 30 mmol/L (23-31); Chloride 99 mmol/L (98-107); Estimated GFR-MDRD 55; Globulin 1.9 g/dL (2.4-3.5); Glucose 130 mg/dL (83-110); Protein, Total 4.5 g/dL (5.8-8.1); Sodium 137 mmol/L (136-145)
[2017-08-02] MEDS: Levothyroxine 100 MCG SDV IVP SCH (05:05)
[2017-08-02] MEDS: Sodium Chloride 0.45% 1,000 ML IV SCH ×3 (05:08→20:57)
[2017-08-02 05:09] LABS: Potassium 2.9 mmol/L (3.5-5.1)
[2017-08-02 05:30] LABS: Band 6 % (5-11); Hemoglobin 10.4 g/dL (14.0-18.0); Lymphocytes 3 % (21-51); MDiff Complete? YES; Mean Corpuscular HGB CONC 30.8 g/dL (32.0-36.0); Mean Corpuscular Hemoglobin 25.9 pg (27.0-31.0); Mean Corpuscular Volume 84.2 fl (80.0-94.0); Mean Platelet Volume 10.9 fL (7.4-10.4); Monocytes 3 % (0-10); Neutrophil 88 % (42-75); Platelet Count 106 thou/uL (130-400); RBC Distribution Width 18.2 % (11.5-14.5); White Blood Cell (WBC) Count 9.7 thou/uL (4.8-10.8)
[2017-08-02] MEDS: Propofol 1,000 MG/100 ML VIAL IV PRN (06:08)
[2017-08-02 06:51] LABS: Actual Bicarbonate (HCO3a) 28.8 mEq/L (22-26); Hematocrit-ABG 34.1 % (42.0-52.0); Hemoglobin (Hb) 10.3 g/dL (14.0-18.0); O2 Tension (PaO2) 63.2 mmHg (80.0-100.0); pH, Arterial 7.49 (7.35-7.45)
[2017-08-02 06:52] LABS: Puncture Site RRA
[2017-08-02] MEDS: Dronedarone HCl 400 MG TAB PO SCH ×2 (08:06→17:44)
[2017-08-02] MEDS: Famotidine 20 MG TAB PO SCH (08:08)
--- NOTE | 2017-08-02 08:27 | RAD ---
SINGLE VIEW OF THE CHEST: COMPARISON: 08/01/17. HISTORY: Ventilated patient with respiratory failure. FINDINGS: A single view of the chest shows an enlarged cardiomediastinal silhouette. The patient is status pos t CABG. The lines and tubes are unchanged in position. There appears to be a small left pleural eff usion. IMPRESSION: Stable small left pleural effusion and cardiomegaly. POS: [facility]
[2017-08-02] MEDS: Piperacillin/Tazobactam 2.25 GM in Sodium Chloride 0.9% 100 ML IVPB SCH ×2 (09:30→20:53)
[2017-08-02] MEDS ORDERED: Furosemide 20 MG/2 ML VIAL SLOW IVP PRN (10:47)
[2017-08-02 11:15] LABS: Potassium 3.2 mmol/L (3.5-5.1)
--- NOTE | 2017-08-02 11:37 | PRG ---
DATE OF SERVICE: 08/02/2017 SUBJECTIVE: This 76-year-old gentleman being seen for acute kidney injury. The patient denies any n ausea. The patient is resting and intubated. OBJECTIVE: GENERAL: Patient is resting. VITAL SIGNS: Afebrile, pulse 70, breathing at 16, blood pressure 141/88. GENERAL APPEARANCE AND MENTAL STATUS: Fair. HEAD/NECK: Normocephalic. Atraumatic. EYES: EOMI. No deformity. EARS: Clear. No ulcers. NOSE: Intact. No lesions. MOUTH: Clear. No discharge. THROAT: Clear. No exudate. LUNGS: Clear. No crackles. CARDIAC: S1, S2. No rub. ABDOMEN: Benign. BS+. GENITALIA/RECTUM: Hood absent. BACK/EXTREMITIES: Edema 0+ Ulcer- NEUROLOGICAL: Alert and motor intact. SKIN: Rash- Bruise- LYMPHATICS: Edema- Ulcer- LABORATORY: Hemoglobin 10.4, potassium 3.2. ASSESSMENT AND RECOMMENDATIONS: 1. Chronic kidney disease stage 3 with acute kidney injury. 2. Hypertension, stable. 3. Anemia, stable. 4. Hypokalemia. Agree with potassium replacement. I will sign off on this patient. Please reconsu lt as needed.
[2017-08-02] MEDS: fentaNYL Citrate/PF 2,000 MCG in Sodium Chloride 0.9% 60 ML IV SCH (14:36)
--- NOTE | 2017-08-02 14:53 | PDOC.PN ---
- Subjective Encounter Start Date: 08/02/17 Encounter Start Time: 14:51 Patient seen at bedside. Awake, will nod to verbal commands. No overnight events. - Objective Resuscitation Status: Resuscitation Status FULL:Full Resuscitation MAR Reviewed: Yes Vital Signs & Weight: Vital Signs (12 hours) Temp Pulse Resp BP Pulse Ox 08/02/17 14:38 77 132/72 08/02/17 12:00 98.1 F 19 08/02/17 10:44 70 141/81 H 08/02/17 10:00 23 H 08/02/17 09:40 74 125/65 08/02/17 08:00 98.1 F 72 23 H 100 08/02/17 07:15 75 138/78 08/02/17 06:00 19 08/02/17 04:00 98.6 F 13 Weight Admit Weight 150 lb Weight 160 lb 4.417 oz Most Recent Monitor Data Heart Rate from ECG 87 NIBP 135/95 NIBP BP-Mean 101 Respiration from ECG 21 SpO2 100 I&O: 08/01/17 08/02/17 08/03/17 06:59 06:59 06:59 Intake Total 2290.1 2409.9 85.6 Output Total 1190 3700 720 Balance 1100.1 -1290.1 -634.4 Result Diagrams: 08/02/17 04:15 08/02/17 10:50 Phys Exam - Physical Examination Constitutional: NAD ET Tube in place mild expiratory wheezing Cardiovascular: RRR Gastrointestinal: soft, positive bowel sounds Musculoskeletal: pulses present Neurological: non-focal Dx/Plan (1) Transaminitis Code(s): R74.0 - NONSPEC ELEV OF LEVELS OF TRANSAMNS & LACTIC ACID DEHYDRGNSE Status: Acute (2) Acute respiratory failure with hypoxia Code(s): J96.01 - ACUTE RESPIRATORY FAILURE WITH HYPOXIA Status: Acute (3) Chronic atrial fibrillation Code(s): I48.2 - CHRONIC ATRIAL FIBRILLATION Status: Acute Comment: Rate variable, continue Coreg and Multaq, hold anticoagulation due to guaiac + stools (4) Influenza A Code(s): J10.1 - FLU DUE TO OTH IDENT INFLUENZA VIRUS W OTH RESP MANIFEST Status: Acute - Plan cont current plan of care, continue antibiotics, 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 * Sedation with precedex * Continue with Zosyn * Trend LFTs. Transaminitis (shock vs diflucan) * Daily Labs ( Replete K+) * Supportive care
--- NOTE | 2017-08-02 16:20 | PRG ---
DATE OF SERVICE: 08/02/2017 OBJECTIVE: VITAL SIGNS: Mr. Tyler is afebrile, respiratory rates in the teens, oximetry 70, blood pressure 125 /64. LUNGS: Clear. HEART: Regular rhythm. ABDOMEN: Soft. LABORATORY DATA: White count 9.7, hemoglobin 10.4, which is stable, platelets are 106,000. He has 8 % segs and 6% bands. Sodium 137, potassium 2.9, chloride 99, bicarbonate 30, BUN 38, creatinine 1.26. pH 7.49, CO2 39, pO2 63. Vent settings, tidal volume 429, spontaneous breaths are are 305 mL, respiratory rates set at 6, he i s breathing at 13. IMPRESSION: 1. Respiratory failure. Chest radiograph reviewed by me today is clear. 2. Acute tubular necrosis. 3. Atrial fibrillation. 4. Elevated liver enzymes. 5. Influenza. 6. Auto anticoagulation. PLAN: Continue slow weaning from mechanical ventilation, maybe a candidate for spontaneous breathing trial in the morning. I asked respiratory therapy to measure his negative inspiratory force at this time. He may do better with Precedex overnight to facilitate weaning in the morning. Critical care time was 30 minutes.
--- NOTE | 2017-08-03 00:05 | PRG ---
DATE OF SERVICE: 08/02/2017 SUBJECTIVE: Mr. Tyler is still intubated and sedated, who receiving some tube feeds. He was given some Lasix yesterday and today. He is on Solu-Medrol, p.r.n. morphine, Pepcid for ulcer prophylaxis, Zosyn. OBJECTIVE: VITAL SIGNS: T-max is 98.1, blood pressure 135/95, heart rate 87, respirations 18. GENERAL: He is frail and thin. He is intubated and sedated. LUNGS: Clear. ABDOMEN: Soft and scaphoid, nontender. LABORATORY DATA: White count 9.7, hemoglobin 10.4, platelet count 106. Sodium 137, potassium 2.9, r eplaced 3.2 in the morning. Bilirubin is 2.4, but the same, AST is decreased to 574, ALT remains up at 787. ASSESSMENT: 1. Acute respiratory failure with hypoxemia, mechanical ventilation, acute renal failure, atrial fib rillation, influenza. 2. Elevated liver enzymes. His AST is slowly improving and ALT is not so much. This was felt to be related to shock liver, which considering the abrupt increase that he had, but the only concern with that is that it is not coming down very fast which it usually does with shock liver. The other cons ideration was it may be related to Diflucan, which was held. He shows no signs of fulminant liver fa ilure with normal INR yesterday. 3. Possible candidiasis in the esophagus, atrophic gastritis. PLAN: We will go ahead and get a Doppler ultrasound tomorrow to make sure we are not dealing with he patic vein thrombosis, but I think that is highly unlikely. We will continue to follow liver functio n tests.
[2017-08-03 04:49] LABS: ALT (SGPT) 607 U/L (8-55); AST (SGOT) 305 U/L (5-34); Albumin 2.8 g/dL (3.4-4.8); Alkaline Phosphatase 77 U/L (40-150); Anion Gap 11 mmol/L (10-20); BUN (Urea Nitrogen) 37 mg/dL (8.4-25.7); Bilirubin, Total 3.1 mg/dL (0.2-1.2); Calc. Creatinine Clearance 59 mL/min (70-130); Calcium 7.9 mg/dL (7.8-10.44); Carbon Dioxide 32 mmol/L (23-31); Chloride 98 mmol/L (98-107); Estimated GFR-MDRD 67; Glucose 150 mg/dL (83-110); Protein, Total 4.8 g/dL (5.8-8.1); Sodium 138 mmol/L (136-145)
[2017-08-03 04:53] LABS: Potassium 2.9 mmol/L (3.5-5.1)
[2017-08-03 05:25] LABS: Anisocytosis SLIGHT = 6-15 cells (100X) (0-5/hpf); Band 8 % (5-11); Hemoglobin 11.4 g/dL (14.0-18.0); Lymphocytes 1 % (21-51); MDiff Complete? YES; Mean Corpuscular HGB CONC 32.3 g/dL (32.0-36.0); Mean Corpuscular Hemoglobin 27.1 pg (27.0-31.0); Mean Corpuscular Volume 83.9 fl (80.0-94.0); Mean Platelet Volume 10.6 fL (7.4-10.4); Monocytes 7 % (0-10); Neutrophil 84 % (42-75); Nucleated RBC 1 % (0); PLT Morphology Comment Appears Decreased; Platelet Count 101 thou/uL (130-400); RBC Distribution Width 18.5 % (11.5-14.5); White Blood Cell (WBC) Count 9.4 thou/uL (4.8-10.8)
[2017-08-03] MEDS: Levothyroxine 100 MCG SDV IVP SCH (06:16)
--- NOTE | 2017-08-03 07:31 | PDOC.PULCC ---
CCU Progress Note: Subj/Obj - Subjective Date: 08/03/17 Time: 07:29 Narrative: Lightly sedated on precedex. Follows commands - Objective Allergies/Adverse Reactions: Allergies Allergy/AdvReac Type Severity Reaction Status Date / Time amiodarone Allergy Intermediate Rash Verified 05/13/17 10:46 iodine Allergy Unknown Verified 05/13/17 10:46 Medications: Current Medications Acetaminophen (Tylenol) 1,000 mg PO Q6H PRN PRN Reason: Headache/Fever or Mild Pain Last Admin: 07/25/17 20:37 Dose: 1,000 mg Albuterol/Ipratropium (Duoneb) 3 ml NEB [id number] [facility]ESE Last Admin: 08/03/17 06:31 Dose: 3 ml Dronedarone (Multaq) 200 mg PO BID-WM VARGHESE Last Admin: 08/02/17 17:44 Dose: 200 mg Famotidine (Pepcid) 20 mg PO DAILY VAR[facility]ESE Last Admin: 08/02/17 08:08 Dose: 20 mg Furosemide (Lasix) 20 mg SLOW IVP DAILY PRN PRN Reason: POTASSIUM < 3.5 Last Admin: 08/02/17 11:43 Dose: 20 mg Fentanyl Citrate 2,000 mcg/ (Sodium Chloride) 100 mls @ 0 mls/hr IV INF VARGHESE; Per Protocol PRN Reason: Protocol Stop: 08/28/17 21:47 Last Admin: 08/02/17 14:36 Dose: 100 mls Fentanyl Citrate (Fentanyl Bolus) 250 mls @ 0 mls/hr IVPB PRN PRN; As Directed PRN Reason: Breakthrough pain Stop: 08/28/17 21:47 Last Admin: 07/30/17 09:43 Dose: 2.5 mls Piperacillin Sod/Tazobactam (Sod 2.25 gm/ Sodium Chloride) 100 mls @ 200 mls/ hr IVPB Q12HR [facility] Last Admin: 08/02/17 20:53 Dose: 100 mls Sodium Chloride (1/2 Normal Saline) 1,000 mls @ 40 mls/hr IV .Q24H [facility] Last Admin: 08/02/17 20:57 Dose: 1,000 mls Dexmedetomidine HCl 200 mcg/ (Sodium Chloride) 50 mls @ 0 mls/hr IVPB INF VARGHESE; Per Protocol PRN Reason: Protocol Last Admin: 08/03/17 04:07 Dose: 50 mls Levothyroxine Sodium (Synthroid) 25 mcg IVP 0600 [facility] Last Admin: 08/03/17 06:16 Dose: 25 mcg Methylprednisolone Sodium Succinate (Solu-Medrol) 20 mg IVP Q6HR [facility] Last Admin: 08/03/17 06:16 Dose: 20 mg Mineral Oil/White Petrolatum (Lacri-Lube Ointment) 0 gm EA EYE PRN PRN PRN Reason: Dry Eyes Morphine Sulfate (Morphine) 2 mg SLOW IVP Q2H PRN PRN Reason: Breakthrough pain Stop: 08/28/17 21:47 Discontinue Previous Narcotic Pain Medications And Benzodiazepines 1 each FS .ONE [facility] Stop: 08/28/17 21:47 Ondansetron HCl (Zofran Odt) 4 mg PO Q6H PRN PRN Reason: Nausea/Vomiting Ondansetron HCl (Zofran) 4 mg IVP Q6H PRN PRN Reason: Nausea/Vomiting Last Admin: 07/29/17 13:32 Dose: 4 mg Potassium Chloride (Klor-Con) 40 meq PER TUBE DAILY PRN PRN Reason: POTASSIUM < 3.5 Last Admin: 08/03/17 06:16 Dose: 40 meq Propofol (Diprivan) 1,000 mg IV INF PRN; Protocol PRN Reason: TO ACHIEVE BARR SCORE 2-3 Stop: 08/28/17 21:47 Last Admin: 08/02/17 06:08 Dose: 1,000 mg Sodium Chloride (Flush - Normal Saline) 10 ml IVF Q12HR [facility] Last Admin: 08/02/17 20:53 Dose: 10 ml Sodium Chloride (Flush - Normal Saline) 10 ml IVF PRN PRN PRN Reason: Saline Flush Last Admin: 08/02/17 11:45 Dose: 10 ml Vital Signs and I&O: Vital Signs Temp 97.9 F 08/03/17 04:00 Pulse 67 08/03/17 06:34 Resp 16 08/03/17 06:31 BP 133/77 08/03/17 06:34 Pulse Ox 97 08/03/17 06:31 Intake & Output 08/02/17 08/03/17 08/03/17 18:59 06:59 18:59 Intake Total 977.6 1097 Output Total 1320 1060 Balance -342.4 37 Weight 156 lb 11.979 oz Intake: Intake, IV Amount 870.6 719 Dexmedetomidine 200 mcg 23 143 In Sodium Chloride 0.9% 48 ml @ Per Protocol IVPB INF [facility] Rx#:[id number] Propofol 1000 mg (See 60 Protocol) IV INF PRN Rx#: [id number] Sodium Chloride 0.45% 1, 762 576 000 ml @ 40 mls/hr IV . Q24H [facility] Rx#:[id number] fentaNYL Citrate/PF 2,000 25.6 mcg In Sodium Chloride 0 .9% 60 ml @ Per Protocol IV INF [facility] Rx#:[id number] Tube Feeding 87 288 Tube Irrigant 20 90 Output: Output, Hood 1320 1060 Other: Voiding Method Indwelling Catheter Indwelling Catheter Vent Setting: PC ventilation Last recorded order Positive End Expiratory 5 Pressure % Fraction of Inspired Oxygen 27 (FIO2) Spontaneous Breathing Test: done (so far doing well) CCU Progress Note: Exam - Physical Exam Constitutional: NAD HEENT: PERRLA, sclera anicteric Neck: no nodes, no JVD Cardiovascular: RRR Respiratory: clear to auscultation bilaterally Gastrointestinal: soft, non-tender Musculoskeletal: no edema Neurological: non-focal, moves all 4 limbs Lymphatic: no nodes Deviation from normal: sedated Skin: no rash CCU Progress Note: Data - Labs Result Diagrams: 08/03/17 04:00 08/03/17 04:00 Lab results: Laboratory Results 08/01/17 08/02/17 08/02/17 10:18 04:15 04:15 WBC 9.7 RBC 4.00 L Hgb 10.4 L Hct 33.7 L MCV 84.2 MCH 25.9 L MCHC 30.8 L RDW 18.2 H Plt Count 106 L MPV 10.9 H Neutrophils % (Manual) 88 H Band Neuts % (Manual) 6 Lymphocytes % (Manual) 3 L Monocytes % (Manual) 3 Nucleated RBCs # (Man) Plt Morphology Comment Anisocytosis PT 18.7 H INR 1.5 Specimen Type Puncture Site Bicarbonate Actual ABG pH ABG pCO2 ABG pO2 ABG O2 Sat Calc/Christina ABG O2 Content ABG Base Excess ABG Hematocrit ABG Hemoglobin ABG Oxyhemoglobin ABG Carboxyhemoglobin ABG Methemoglobin Mathieu Test A-a O2 Gradient Ionized Calcium Mode of Support Mechanical Rate Spontaneous Rate Inspired O2 Inspiratory Time Tidal Volume Spontaneous Tidal Vol Peak Inspir Pressure Pressure Support PEEP or CPAP Sodium 137 Potassium 2.9 L* Chloride 99 Carbon Dioxide 30 Anion Gap 11 BUN 38 H Creatinine 1.26 Estimated GFR (MDRD) 55 Glucose 130 H Calcium 7.7 L Magnesium Total Bilirubin 2.4 H AST 574 H ALT 787 H Alkaline Phosphatase 68 Serum Total Protein 4.5 L Albumin 2.6 L Globulin 1.9 L Albumin/Globulin Ratio 1.4 08/02/17 08/02/17 08/02/17 04:16 06:23 10:50 WBC RBC Hgb Hct MCV MCH MCHC RDW Plt Count MPV Neutrophils % (Manual) Band Neuts % (Manual) Lymphocytes % (Manual) Monocytes % (Manual) Nucleated RBCs # (Man) Plt Morphology Comment Anisocytosis PT INR Specimen Type ARTERIAL Puncture Site RRA Bicarbonate Actual 28.8 H ABG pH 7.49 H ABG pCO2 39.0 ABG pO2 63.2 L ABG O2 Sat Calc/Christina 94.2 ABG O2 Content 13.4 L ABG Base Excess 5.0 H ABG Hematocrit 34.1 L ABG Hemoglobin 10.3 L ABG Oxyhemoglobin 92.0 L ABG Carboxyhemoglobin 1.8 ABG Methemoglobin 0.6 Mathieu Test POSITIVE A-a O2 Gradient 79.210 H Ionized Calcium 1.0 L Mode of Support SIMV/PC Mechanical Rate 6 Spontaneous Rate 13 Inspired O2 27 Inspiratory Time 0.85 Tidal Volume 429 Spontaneous Tidal Vol 305 Peak Inspir Pressure 13 Pressure Support 10 PEEP or CPAP 5.0 Sodium 135 Potassium 2.7 L 3.2 L Chloride 97 L Carbon Dioxide Anion Gap BUN Creatinine Estimated GFR (MDRD) Glucose Calcium Magnesium 1.7 Total Bilirubin AST ALT Alkaline Phosphatase Serum Total Protein Albumin Globulin Albumin/Globulin Ratio 08/03/17 08/03/17 04:00 04:00 WBC 9.4 RBC 4.20 L Hgb 11.4 L Hct 35.2 L MCV 83.9 MCH 27.1 MCHC 32.3 RDW 18.5 H Plt Count 101 L MPV 10.6 H Neutrophils % (Manual) 84 H Band Neuts % (Manual) 8 Lymphocytes % (Manual) 1 L Monocytes % (Manual) 7 Nucleated RBCs # (Man) 1 H Plt Morphology Comment Appears Decreased L Anisocytosis SLIGHT = 6-15 cells PT INR Specimen Type Puncture Site Bicarbonate Actual ABG pH ABG pCO2 ABG pO2 ABG O2 Sat Calc/Christina ABG O2 Content ABG Base Excess ABG Hematocrit ABG Hemoglobin ABG Oxyhemoglobin ABG Carboxyhemoglobin ABG Methemoglobin Mathieu Test A-a O2 Gradient Ionized Calcium Mode of Support Mechanical Rate Spontaneous Rate Inspired O2 Inspiratory Time Tidal Volume Spontaneous Tidal Vol Peak Inspir Pressure Pressure Support PEEP or CPAP Sodium 138 Potassium 2.9 L* Chloride 98 Carbon Dioxide 32 H Anion Gap 11 BUN 37 H Creatinine 1.07 Estimated GFR (MDRD) 67 Glucose 150 H Calcium 7.9 Magnesium Total Bilirubin 3.1 H AST 305 H ALT 607 H Alkaline Phosphatase 77 Serum Total Protein 4.8 L Albumin 2.8 L Globulin 2.0 L Albumin/Globulin Ratio 1.4 - ABG Interpretation ABG Results: ABG pH 7.49 (7.35-7.45) H 08/02/17 06:23 ABG pCO2 39.0 mmHg (35.0-45.0) 08/02/17 06:23 ABG O2 Sat Calc/Christina 94.2 % (94.0-100.0) 08/02/17 06:23 ABG Base Excess 5.0 mEq/L (0 (+/-) 2.5) H 08/02/17 06:23 - Radiology Interpretation Chest x-ray Status: image reviewed by me Additional comments: clear CCU Progress Note: A/P - Problems (1) Acute respiratory failure with hypoxia Current Visit: Yes Status: Acute Code(s): J96.01 - ACUTE RESPIRATORY FAILURE WITH HYPOXIA (2) Acute renal failure Current Visit: Yes Status: Acute Qualifiers: Acute renal failure type: with acute tubular necrosis Qualified Code(s): N17.0 - Acute kidney failure with tubular necrosis (3) Chronic atrial fibrillation Current Visit: Yes Status: Acute Code(s): I48.2 - CHRONIC ATRIAL FIBRILLATION (4) Influenza A Current Visit: Yes Status: Acute Code(s): J10.1 - FLU DUE TO OTH IDENT INFLUENZA VIRUS W OTH RESP MANIFEST (5) Transaminitis Current Visit: Yes Status: Acute Code(s): R74.0 - NONSPEC ELEV OF LEVELS OF TRANSAMNS & LACTIC ACID DEHYDRGNSE - Time Spent with Patient Time (minutes): 30 - Plan Plan: SBT, extubate if he does OK Replace K Adjust medication doses for renal fx
[2017-08-03] MEDS ORDERED: Piperacillin/Tazobactam 3.375 GM in Sodium Chloride 0.9% 100 ML IVPB SCH (07:33)
[2017-08-03] MEDS: Furosemide 20 MG/2 ML VIAL SLOW IVP SCH ×2 (08:11→21:04)
[2017-08-03] MEDS: Piperacillin/Tazobactam 3.375 GM in Sodium Chloride 0.9% 100 ML IVPB SCH ×2 (08:13→21:04)
[2017-08-03] MEDS: Dronedarone HCl 400 MG TAB PO SCH ×2 (08:16→18:01)
[2017-08-03] MEDS ORDERED: Piperacillin-Tazo-Dextrose,Iso 3.375 GM in Premix Bag 1 BAG IVPB SCH (09:00)
[2017-08-03 09:45] LABS: CO2 Tension 36.7 mmHg (35.0-45.0); pH, Arterial 7.49 (7.35-7.45)
[2017-08-03 09:49] LABS: Actual Bicarbonate (HCO3a) 27.4 mEq/L (22-26); Hemoglobin (Hb) 10.9 g/dL (14.0-18.0); O2 Tension (PaO2) 74.1 mmHg (80.0-100.0)
[2017-08-03 09:50] LABS: Analyzer IN Cardio OR
[2017-08-03 09:51] LABS: ALV-art Gradient 72.535 (0-20); Puncture Site LRA
--- NOTE | 2017-08-03 09:57 | PDOC.PN ---
- Subjective Encounter Start Date: 08/03/17 Encounter Start Time: 10:00 CC: Acute respiratory failure SUB: Pt got extubated this am - Objective Resuscitation Status: Resuscitation Status FULL:Full Resuscitation Vital Signs & Weight: Vital Signs (12 hours) Temp Pulse Resp BP Pulse Ox 08/03/17 08:00 97.9 F 73 18 100 08/03/17 06:34 67 133/77 08/03/17 06:31 88 16 97 08/03/17 06:00 20 08/03/17 04:00 97.9 F 21 H 08/03/17 02:34 64 08/03/17 02:33 67 21 H 100 08/03/17 02:00 18 08/03/17 00:00 97.7 F 18 08/02/17 22:47 67 18 99 08/02/17 22:00 22 H Weight Admit Weight 150 lb Weight 156 lb 11.979 oz Most Recent Monitor Data Heart Rate from ECG 67 NIBP 125/70 NIBP BP-Mean 80 Respiration from ECG 19 SpO2 100 I&O: 08/02/17 08/03/17 08/04/17 06:59 06:59 06:59 Intake Total 2409.9 2074.6 Output Total 3700 2380 360 Balance -1290.1 -305.4 -360 Result Diagrams: 08/03/17 04:00 08/03/17 11:58 Phys Exam - Physical Examination Constitutional: NAD HEENT: moist MMs Neck: no JVD Respiratory: no wheezing Positive crackles, no accessory muscle usage seen Cardiovascular: RRR Gastrointestinal: soft, non-tender no guarding, no rebound tenderness Musculoskeletal: no edema Neurological: non-focal Psychiatric: normal affect Skin: no rash Dx/Plan - Plan Pt is 76 yrs old female (1) Transaminitis Code(s): R74.0 - NONSPEC ELEV OF LEVELS OF TRANSAMNS & LACTIC ACID DEHYDRGNSE Status: Acute (2) Acute respiratory failure with hypoxia Code(s): J96.01 - ACUTE RESPIRATORY FAILURE WITH HYPOXIA Status: Acute (3) Chronic atrial fibrillation Code(s): I48.2 - CHRONIC ATRIAL FIBRILLATION Status: Acute Comment: Rate variable, continue Coreg and Multaq, hold anticoagulation due to guaiac + stools (4) Influenza A Code(s): J10.1 - FLU DUE TO OTH IDENT INFLUENZA VIRUS W OTH RESP MANIFEST Status: Acute 5. 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 Monitor respiratory status closely * Sedation with precedex per pulm * Continue with Zosyn * Trend LFTs. lft improving. * replace potassium * Supportive care * Replace potassium * * d/w pt & Pt at bedside
--- NOTE | 2017-08-03 10:19 | RAD ---
SINGLE VIEW OF CHEST: Date: 08/03/17 COMPARISON: 08/02/17. HISTORY: Ventilated patient with respiratory failure. FINDINGS: Single view of the chest shows an enlarged cardiomediastinal silhouette. The patient is status post C ABG and sternotomy. The lines and tubes are unchanged in position. Increased interstitial lung markin gs are present. There is better visualization of the left hemidiaphragm, likely secondary to improvem ent in the left pleural effusion. IMPRESSION: Slight improvement in left pleural effusion. POS: OFF
--- NOTE | 2017-08-03 10:36 | ULT ---
HEPATIC DOPPLER: Date: 08/03/17 HISTORY: Evaluate for hepatic or portal vein thrombosis. COMPARISON: None. TECHNIQUE: Tillman scale, color flow, Doppler imaging, and spectral waveform analysis performed of the liver. FINDINGS: Pancreas is obscured by bowel gas. Visualized aorta is unremarkable. The IVC and hepatic veins are di lated. Hepatic parenchyma has a normal echotexture. No hepatic masses or intrahepatic biliary dilatation. Co ntour of the hepatic margin maintained. There is sludge within the lumen of the gallbladder. Gallbladder wall thickened. No pericholecystic f luid. Negative Briseno's sign. Common bile duct diameter is 0.4 cm. HEPATIC DOPPLER: There is patency and normal direction of flow in the left hepatic vein, middle hepatic vein, right he patic vein, left portal vein, middle portal vein, right portal vein, and hepatic artery. Spleen has a normal echotexture, measuring 11.1 cm. There is flow in splenic vein and artery. IMPRESSION: 1. Normal hepatic Doppler. There is patency in the hepatic vein and portal veins. 2. Dilatation of the hepatic vein and IVC. 3. Gallbladder wall thickened. There is evidence of sludge. POS: [facility]
[2017-08-03 12:13] LABS: Potassium 3.1 mmol/L (3.5-5.1)
[2017-08-03] MEDS ORDERED: Potassium Chloride 40 MEQ in Premix Bag 1 BAG IVPB SCH (14:15)
--- NOTE | 2017-08-03 17:45 | PRG ---
DATE OF SERVICE: 08/03/2017 SUBJECTIVE: Early this morning, the patient was extubated with no problems in the post-extubation pe riod. Currently, he is able to vocalize complaints and problems as well as answer questions appropri ately. Currently, denies any nausea, vomiting, fevers, or chills. He does continue to have increase d cough during the course of this interview, but otherwise doing well. OBJECTIVE: VITAL SIGNS: Temperature 97.6, pulse 74, blood pressure 129/68, respiratory rate 28, and saturating 100% on room air. GENERAL: Patient is lying comfortably in bed, in no acute distress. He does exhibit increased cough ing during the course of the interview. CARDIOVASCULAR: Irregularly irregular rhythm with no discernible murmurs, gallops or rubs. RESPIRATORY: Coarse breath sounds heard in all lung haile consistent with recent mechanical ventila tion. ABDOMEN: Normoactive bowel sounds, soft, nontender, nondistended. EXTREMITIES: No cyanosis, clubbing or edema. LABORATORY DATA: CBC with a white blood cell count of 9.4, hemoglobin of 11.4, hematocrit 35.2, plat elets 101. Chemistries: Sodium 138, potassium 2.9, chloride 98, CO2 of 32, BUN 37, creatinine 1.07, glucose 150, AST 305, ALT 607, alkaline phosphatase 77, and total bilirubin 3.1. IMAGING STUDIES: Right upper quadrant ultrasound with Doppler obtained on 08/03/2017 showed normal e chotexture within the hepatic parenchyma. No hepatic masses or intrahepatic biliary dilatation; tang marlo, there was sludge noted within the lumen of the gallbladder with gallbladder wall thickening. Th e degree of thickening was not commented on this particular study. No evidence of pericholecystic fl uid and the common bile duct measured 0.4 cm in diameter. There was also patency and normal directio n of flow in the left hepatic vein, middle hepatic vein, right hepatic vein, left portal vein, middle portal vein, right portal vein and hepatic artery, but noted dilatation of the hepatic vein and the IVC. ASSESSMENT AND PLAN: The patient is a 76-year-old male with a past medical history of congestive hea rt failure, chronic atrial fibrillation on anticoagulation, peripheral vascular disease, pulmonary em bolism, hyperlipidemia, renal cell carcinoma, status post right nephrectomy, hypothyroidism, prostate cancer, status post [facility]urethral [facility] of the prostate [facility] with anemia (now stable) and elevated liver function tests. The patient experienced acute respiratory failure on 07/29/2017 with subsequent intubation and mechanical ventilation. Prio r to intubation, he was noted to be significantly hypotensive as well as acidotic with a pH of 7.2. Shortly after intubation, he was noted to have significant increase in his AST and ALT concerning for shock liver. Right upper quadrant ultrasound obtained did not show any parenchymal or biliary tree abnormalities that would further contribute to his transaminitis. Repeat right upper quadrant ultras ound with Doppler obtained today did not show any intrahepatic abnormalities, but did show some mild dilation of the hepatic vein and inferior vena cava. Furthermore, he was recently placed on oral flu conazole for the treatment of esophageal candidiasis on 07/27/2017, which could potentially contribut e to his transaminitis. At this time, his transaminitis could have been multifactorial and includes a differential of hypotension resulting in low flow state within the liver, severe acidosis causing h epatocellular injury. Drug-induced liver injury caused by recent introduction of fluconazole or last ly possible hepatic congestive hepatopathy induced by severe hypertension and possible right heart fa ilure, seen by dilation on the Doppler study obtained today. RECOMMENDATIONS: 1. Would continue to attempt to maintain normotensive pressures in this patient as a most likely neville son for transaminitis with his severe hypertension. 2. Would continue to trend LFTs daily to monitor for signs for additional hepatic injury. Would als o continue to draw INR daily to assess for worsening liver failure. 3. Would continue to hold fluconazole as a possible source of drug-induced liver injury. 4. Would consider an echocardiogram for assessment of cardiac function and valvular function due to dilation seen of the inferior vena cava and possible contributing to congestive hepatopathy. We will continue to follow. Please call with any questions.
[2017-08-04] MEDS ORDERED: Melatonin 3 MG TAB PO SCH (03:00)
[2017-08-04] MEDS: Levothyroxine 100 MCG SDV IVP SCH (05:08)
[2017-08-04] MEDS: Sodium Chloride 0.45% 1,000 ML IV SCH (05:18)
[2017-08-04 05:58] LABS: ALT (SGPT) 493 U/L (8-55); AST (SGOT) 224 U/L (5-34); Albumin 3.1 g/dL (3.4-4.8); Alkaline Phosphatase 105 U/L (40-150); Bilirubin, Direct 3.6 mg/dL (0.1-0.3); Bilirubin, Total 4.7 mg/dL (0.2-1.2); Protein, Total 5.4 g/dL (5.8-8.1)
[2017-08-04 05:59] LABS: ALT (SGPT) 493 U/L (8-55); AST (SGOT) 226 U/L (5-34); Albumin 3.1 g/dL (3.4-4.8); Alkaline Phosphatase 107 U/L (40-150); Anion Gap 16 mmol/L (10-20); BUN (Urea Nitrogen) 40 mg/dL (8.4-25.7); Bilirubin, Total 4.7 mg/dL (0.2-1.2); Calc. Creatinine Clearance 56 mL/min (70-130); Calcium 8.3 mg/dL (7.8-10.44); Carbon Dioxide 29 mmol/L (23-31); Chloride 96 mmol/L (98-107); Estimated GFR-MDRD 64; Globulin 2.2 g/dL (2.4-3.5); Glucose 107 mg/dL (83-110); Protein, Total 5.3 g/dL (5.8-8.1); Sodium 138 mmol/L (136-145)
[2017-08-04 06:00] LABS: Band 3 % (5-11); Lymphocytes 4 % (21-51); MDiff Complete? YES; Mean Corpuscular HGB CONC 30.1 g/dL (32.0-36.0); Mean Corpuscular Hemoglobin 25.3 pg (27.0-31.0); Mean Corpuscular Volume 84.2 fl (80.0-94.0); Mean Platelet Volume 11.7 fL (7.4-10.4); Monocytes 7 % (0-10); Neutrophil 86 % (42-75); Nucleated RBC 1 % (0); PLT Morphology Comment Appears Decreased; Platelet Count 110 thou/uL (130-400); RBC Distribution Width 18.5 % (11.5-14.5); Red Blood Cell (RBC) Count 4.36 mill/uL (4.70-6.10); White Blood Cell (WBC) Count 13.4 thou/uL (4.8-10.8)
--- NOTE | 2017-08-04 07:44 | PRG ---
DATE OF SERVICE: 08/04/2017 The patient was extubated yesterday and so far has done reasonably well. PHYSICAL EXAMINATION: VITAL SIGNS: Temperature is 98.4, pulse 101, blood pressure 156/76. Total intake for 24 hours 1481, output 2520. HEENT: Unremarkable. NECK: No JVD. LUNGS: Coarse breath sounds. CARDIAC: S1 and S2 regular, has intermittent spells of atrial fibrillation. ABDOMEN: Soft and nontender. EXTREMITIES: No clubbing, cyanosis. He has a wound over his right leg. PSYCHIATRIC: The patient is oriented to place and date. Does not know much about the current events and at times seems delusional. Chest x-ray demonstrates improved aeration in the bases compared to several days ago. There is a que stion of a left upper lobe infiltrate. LABORATORY DATA: White blood cell count 13, hemoglobin 11, hematocrit 36, platelet count 110. Sodiu m 138, potassium 3.0, chloride 96, CO2 29, BUN 40, creatinine 1.1, glucose 107, AST 226, ALT 493, alb umin 3.1. ASSESSMENT: 1. Status post acute respiratory failure related to severe metabolic acidosis. 2. Transaminitis, the etiology of which is not certain, but may be related to congestive heart failu re. 3. Hypokalemia. 4. Mild prerenal insufficiency. 5. Influenza A. 6. Chronic atrial fibrillation. PLAN: The patient can be transferred to the telemetry unit, initiate physical therapy. Continue IV antibiotics. Continue telemetry monitoring for the next 24-48 hours.
[2017-08-04] MEDS: Piperacillin/Tazobactam 3.375 GM in Sodium Chloride 0.9% 100 ML IVPB SCH ×2 (09:00→22:16)
[2017-08-04] MEDS: Dronedarone HCl 400 MG TAB PO SCH ×2 (09:00→17:34)
[2017-08-04] MEDS: Furosemide 20 MG/2 ML VIAL SLOW IVP SCH ×2 (09:00→22:17)
--- NOTE | 2017-08-04 09:02 | RAD ---
PORTABLE UPRIGHT FRONTAL CHEST RADIOGRAPH: Date: 08-04-17 Comparison: 08-03-17 History: Ventilated patient. FINDINGS: Endotracheal tube and nasogastric tube have been removed. Right sided vascular catheter, midline ster notomy wires, and mediastinal clips are again seen. No discrete pneumothorax is noted. There is pulmonary vascular congestion with perihilar increased interstitial density, worsened since the prior exam. There is worsening hazy density in both lung bases suggesting bilateral pleural effus ions and nonspecific patchy bibasilar densities. IMPRESSION: Worsening opacity in bilateral perihilar regions in both lung bases. Findings suggest pulmonary edema . Superimposed infection or aspiration cannot be excluded. Follow up to resolution advised. POS: [facility]
--- NOTE | 2017-08-04 15:41 | PDOC.PN ---
- Subjective Encounter Start Date: 08/04/17 Encounter Start Time: 13:00 Patient is seen while he is in ICU, off of oxygen, pt breathing fine, he was very hungry and eating, at bedside. - Objective Resuscitation Status: Resuscitation Status FULL:Full Resuscitation MAR Reviewed: Yes Vital Signs & Weight: Vital Signs (12 hours) Temp Pulse Resp Pulse Ox 08/04/17 14:45 87 22 H 99 08/04/17 12:00 97.9 F 08/04/17 11:48 100 24 H 99 08/04/17 08:00 98.1 F 103 H 25 H 100 08/04/17 07:31 99 08/04/17 07:30 101 H 24 H 99 08/04/17 04:00 98.4 F Weight Admit Weight 150 lb Weight 156 lb 4.924 oz Most Recent Monitor Data Heart Rate from ECG 101 NIBP 155/73 NIBP BP-Mean 106 Respiration from ECG 22 SpO2 99 I&O: 08/03/17 08/04/17 08/05/17 06:59 06:59 06:59 Intake Total 2074.6 1481.9 482 Output Total 2380 2520 590 Balance -305.4 -1038.1 -108 Result Diagrams: 08/04/17 04:30 08/04/17 04:30 Radiology Reviewed by me: Yes EKG Reviewed by me: Yes Phys Exam - Physical Examination HEENT: PERRLA, moist MMs Neck: no nodes, no JVD Respiratory: wheezing present Cardiovascular: RRR, no significant murmur Gastrointestinal: soft, non-tender Musculoskeletal: no edema, pulses present Neurological: non-focal, normal sensation Lymphatic: no nodes Psychiatric: normal affect, A&O x 3 Dx/Plan (1) Acute respiratory failure with hypoxia Code(s): J96.01 - ACUTE RESPIRATORY FAILURE WITH HYPOXIA Status: Acute Comment: THis is resolved now, pt will be Moveed to Medical Floor. (2) Acute renal failure Status: Acute Qualifiers: Acute renal failure type: with acute tubular necrosis Qualified Code(s): N17.0 - Acute kidney failure with tubular necrosis Comment: Improving with IV fluids, but pt has Evaidence of Volume Over load, will do IV lasix. (3) Chronic atrial fibrillation Code(s): I48.2 - CHRONIC ATRIAL FIBRILLATION Status: Acute Comment: Rate variable, continue Coreg and Multaq, hold anticoagulation due to guaiac + stools (4) General weakness Code(s): R53.1 - WEAKNESS Status: Acute Comment: Secondary to #1 (5) Influenza A Code(s): J10.1 - FLU DUE TO OTH IDENT INFLUENZA VIRUS W OTH RESP MANIFEST Status: Acute Comment: COntinue on Tamiflu, monitor for developement of bacteria;l pneumonia. 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 - Discharge Day Encounter end time: 13:30 Review of Systems - Review of Systems Constitutional: negative: fever, chills, sweats, weakness, malaise, other Eyes: negative: Pain, Vision Change, Conjunctivae Inflammation, Eyelid Inflammation, Redness, Other ENT: negative: Ear Pain, Ear Discharge, Nose Pain, Nose Discharge, Nose Congestion, Mouth Pain, Mouth Swelling, Throat Pain, Throat Swelling, Other Respiratory: negative: Cough, Dry, Shortness of Breath, Hemoptysis, SOB with Excertion, Pleuritic Pain, Sputum, Wheezing Cardiovascular: negative: chest pain, palpitations, orthopnea, paroxysmal nocturnal dyspnea, edema, light headedness, other Gastrointestinal: negative: Nausea, Vomiting, Abdominal Pain, Diarrhea, Constipation, Melena, Hematochezia, Other Genitourinary: Dysuria, Frequency, Incontinence, Hematuria, Retention, Other Musculoskeletal: negative: Neck Pain, Shoulder Pain, Arm Pain, Back Pain, Hand Pain, Leg Pain, Foot Pain, Other Skin: negative: Rash, Lesions, Chris, Bruising, Other Neurological: negative: Weakness, Numbness, Incoordination, Change in Speech, Confusion, Seizures, Other - Medications/Allergies Allergies/Adverse Reactions: Allergies Allergy/AdvReac Type Severity Reaction Status Date / Time amiodarone Allergy Intermediate Rash Verified 05/13/17 10:46 iodine Allergy Unknown Verified 05/13/17 10:46 Medications: Current Medications Acetaminophen (Tylenol) 1,000 mg PO Q6H PRN PRN Reason: Headache/Fever or Mild Pain Last Admin: 07/25/17 20:37 Dose: 1,000 mg Albuterol/Ipratropium (Duoneb) 3 ml NEB [id number] [facility] Last Admin: 08/04/17 14:45 Dose: 3 ml Dronedarone (Multaq) 200 mg PO BID-[facility] Last Admin: 08/04/17 09:00 Dose: 200 mg Furosemide (Lasix) 20 mg SLOW IVP BID [facility] Last Admin: 08/04/17 09:00 Dose: 20 mg Sodium Chloride (1/2 Normal Saline) 1,000 mls @ 40 mls/hr IV .Q24H [facility] Last Admin: 08/04/17 05:18 Dose: 1,000 mls Piperacillin Sod/Tazobactam (Sod 3.375 gm/ Sodium Chloride) 100 mls @ 200 mls/ hr IVPB Q12HR [facility] Last Admin: 08/04/17 09:00 Dose: 100 mls Levothyroxine Sodium (Synthroid) 25 mcg IVP 0600 [facility] Last Admin: 08/04/17 05:08 Dose: 25 mcg Methylprednisolone Sodium Succinate (Solu-Medrol) 20 mg IVP Q6HR [facility] Last Admin: 08/04/17 12:00 Dose: 20 mg Mineral Oil/White Petrolatum (Lacri-Lube Ointment) 0 gm EA EYE PRN PRN PRN Reason: Dry Eyes Discontinue Previous Narcotic Pain Medications And Benzodiazepines 1 each FS .ONE [facility] Stop: 08/28/17 21:47 Ondansetron HCl (Zofran Odt) 4 mg PO Q6H PRN PRN Reason: Nausea/Vomiting Ondansetron HCl (Zofran) 4 mg IVP Q6H PRN PRN Reason: Nausea/Vomiting Last Admin: 07/29/17 13:32 Dose: 4 mg Potassium Chloride (Klor-Con) 40 meq PER TUBE DAILY PRN PRN Reason: POTASSIUM < 3.5 Last Admin: 08/03/17 06:16 Dose: 40 meq Sodium Chloride (Flush - Normal Saline) 10 ml IVF Q12HR [facility] Last Admin: 08/04/17 09:00 Dose: 10 ml Sodium Chloride (Flush - Normal Saline) 10 ml IVF PRN PRN PRN Reason: Saline Flush Last Admin: 08/02/17 11:45 Dose: 10 ml
--- NOTE | 2017-08-04 22:23 | PRG ---
DATE OF SERVICE: 08/04/2017 SUBJECTIVE: The patient states that he is feeling better today with subjective improvement in his sh ortness of breath. He does continue to have increased cough with productive sputum, but this has als o lessened as well. Currently, he denies any nausea, vomiting, fevers, chills, or abdominal pain. OBJECTIVE: VITAL SIGNS: Temperature 98, pulse 100, blood pressure 157/89, respiratory rate 18, satting 98% on r oom air. GENERAL: The patient is lying comfortably in bed in no acute distress. Alert and oriented x4. CARDIOVASCULAR: Irregularly irregular rhythm with no discernible murmurs, gallops, or rubs. RESPIRATORY: Coarse breath sounds heard in all lung haile. No discernible wheezes. ABDOMEN: Normoactive bowel sounds. Soft, nontender, nondistended. EXTREMITIES: No cyanosis, clubbing, or edema. LABORATORY DATA: CBC with a white blood cell count of 13.4, hemoglobin 11, hematocrit 36.7, platelet s 110. Chemistry with a sodium of 138, potassium of 3, chloride 96, CO2 of 29, BUN 40, creatinine 1. 11, glucose 107, AST 224, ALT 483, alkaline phosphatase 105, total bilirubin 4.7. IMAGING STUDIES: No current GI imaging studies are available for review. ASSESSMENT AND PLAN: The patient is a 76-year-old male with a past medical history of congestive hea rt failure; chronic atrial fibrillation, on anticoagulation; peripheral vascular disease; pulmonary e mbolism; hyperlipidemia; renal cell carcinoma, status post right nephrectomy; hypothyroidism; prostat e cancer, status post TURP; and GERD presenting with significantly elevated liver function tests. Elevated liver function tests. The patient experienced acute respiratory failure on 07/29/2017 with subsequent intubation and mechanical ventilation. Prior to intubation, he was noted to be significan tly hypotensive as well as acidotic with a pH of 7.2. Routine labs obtained afterward showed a signi ficant increase in AST and ALT concerning for liver injury. Right upper quadrant ultrasound obtained did not show any parenchymal or biliary tree abnormalities that would contribute to this transaminit is. Repeat right upper quadrant ultrasound with Doppler obtained on 08/03/2017 did not show any intr ahepatic abnormalities or vascular abnormalities. However, it did show some mild dilatation of the h epatic vein and inferior vena cava concerning for hepatic congestion. Fluconazole was discontinued a s a treatment for esophageal candidiasis recently with down trending of his transaminitis after holdi ng this medication. At this time, his transaminitis is multifactorial and could include significant hypotension resulting in low-flow state within the liver and initially contributing to his significan t transaminitis. Since restoring normal blood pressures and discontinuation of fluconazole, he has h ad a significant improvement in his transaminitis; however, this has stalled over the last 24 hours. This could be due to an element of the prior hepatic injury due to hypotension, but also due to poss ible congestive hepatopathy related to possible right heart dysfunction or congestive heart failure. I would further expect his transaminases and total bilirubin at this point to downtrend slowly with optimization of his cardiac function. RECOMMENDATIONS: 1. Continue to trend LFTs daily and monitor for any signs of additional hepatic injury. 2. We would avoid any hepatotoxic medications for a possible drug-induced liver injury. 3. We would continue to maintain normotensive pressures in this patient. 4. We would consider an echocardiogram for assessment of cardiac function and valvular function due to the dilatation seen on the recent Doppler examination that could potentially contribute to a conge sted hepatopathy picture. We will continue to follow. Please call with any questions.
[2017-08-05 05:47] LABS: ALT (SGPT) 418 U/L (8-55); AST (SGOT) 189 U/L (5-34); Albumin 3.1 g/dL (3.4-4.8); Alkaline Phosphatase 111 U/L (40-150); Anion Gap 13 mmol/L (10-20); BUN (Urea Nitrogen) 39 mg/dL (8.4-25.7); Bilirubin, Total 4.7 mg/dL (0.2-1.2); Calc. Creatinine Clearance 55 mL/min (70-130); Calcium 8.2 mg/dL (7.8-10.44); Carbon Dioxide 35 mmol/L (23-31); Chloride 96 mmol/L (98-107); Estimated GFR-MDRD 64; Glucose 118 mg/dL (83-110); Protein, Total 5.1 g/dL (5.8-8.1); Sodium 141 mmol/L (136-145)
[2017-08-05 05:53] LABS: Potassium 2.6 mmol/L (3.5-5.1)
[2017-08-05] MEDS ORDERED: Magnesium 2 GM/NS 0.9% 100 ML 2 GM in Premix Bag 1 BAG IVPB PRN (06:14)
[2017-08-05] MEDS: Sodium Chloride 0.45% 1,000 ML IV SCH (06:54)
[2017-08-05] MEDS: Potassium Chloride 20 MEQ TAB PO SCH ×3 (07:01→15:30)
[2017-08-05] MEDS: Dronedarone HCl 400 MG TAB PO SCH ×2 (09:38→16:32)
[2017-08-05 09:51] VITALS: BMI 19.8
[2017-08-05] MEDS: Levothyroxine 100 MCG SDV IVP SCH (10:15)
[2017-08-05] MEDS: Furosemide 20 MG/2 ML VIAL SLOW IVP SCH (10:15)
[2017-08-05] MEDS: Piperacillin/Tazobactam 3.375 GM in Sodium Chloride 0.9% 100 ML IVPB SCH (10:17)
--- NOTE | 2017-08-05 10:19 | PRG ---
DATE OF SERVICE: 08/05/2017 SUBJECTIVE: The patient is doing better, still having copious upper airway noises. OBJECTIVE: VITAL SIGNS: Temperature is 98.0, pulse 96, respiratory rate 20, O2 sat 95%, blood pressure 142/84. HEENT: Unremarkable. NECK: No JVD. LUNG: Lungs have coarse rhonchi, particularly in the upper airways. CARDIAC: S1, S2 regular. ABDOMEN: Soft. EXTREMITIES: . LABORATORY DATA: Sodium 141, potassium 2.6, chloride 96, CO2 35, BUN 39, creatinine 1.1, glucose 118 , AST 189, ALT 418. ASSESSMENT: 1. Transaminitis, which is slowly improving. 2. Status post acute respiratory failure related to metabolic acidosis. 3. Likely underlying chronic obstructive pulmonary disease. 4. Renal insufficiency. 5. Influenza A. 6. Chronic atrial fibrillation. PLAN: 1. Continue nebulization treatments. 2. Go ahead and switch over to oral antibiotic medication. 3. Stop the diuretics given that his potassium is falling. 4. He was given supplemental potassium today. 5. Likely needs to work towards rehab placement.
[2017-08-05] MEDS ORDERED: Cefdinir 300 MG CAP PO SCH (10:30)
[2017-08-05] MEDS ORDERED: Levothyroxine Sodium 50 MCG TAB PO SCH (10:30)
--- NOTE | 2017-08-05 16:34 | PDOC.PN ---
- Subjective Encounter Start Date: 08/05/17 Encounter Start Time: 13:30 Lamnot is seen today, alert and oriented, With his nephew, talking about trying some alcohol if he goes home. - Objective Resuscitation Status: Resuscitation Status FULL:Full Resuscitation MAR Reviewed: Yes Vital Signs & Weight: Vital Signs (12 hours) Temp Pulse Resp BP Pulse Ox 08/05/17 14:01 90 18 08/05/17 12:00 97.5 F L 88 24 H 138/88 96 08/05/17 10:57 90 16 08/05/17 07:35 98.0 F 96 20 142/84 H 95 08/05/17 07:30 98.0 F 96 20 95 08/05/17 06:49 80 18 Weight Admit Weight 144 lb 7 oz Weight 154 lb 6.4 oz Most Recent Monitor Data Heart Rate from ECG 101 NIBP 155/73 NIBP BP-Mean 106 Respiration from ECG 22 SpO2 99 I&O: 08/04/17 08/05/17 08/06/17 06:59 06:59 06:59 Intake Total 1481.9 962 Output Total 2520 2765 Balance -1038.1 -1803 Result Diagrams: 08/04/17 04:30 08/05/17 04:14 Radiology Reviewed by me: Yes Phys Exam - Physical Examination HEENT: PERRLA, moist MMs Neck: no nodes, no JVD Respiratory: wheezing present (Crackles bilateral) Cardiovascular: RRR, no significant murmur Gastrointestinal: soft, non-tender Musculoskeletal: no edema, pulses present Neurological: non-focal, normal sensation Lymphatic: no nodes Psychiatric: normal affect, A&O x 3 Skin: no rash Dx/Plan (1) Acute hypokalemia Code(s): E87.6 - HYPOKALEMIA Status: Acute Comment: Will correct per protocol with IV potassium, likely from lasix, this is discontinued by Dr. Fong, will monitor fluid status. (2) Hypomagnesemia Code(s): E83.42 - HYPOMAGNESEMIA Status: Acute Comment: Will replace with Magnesium Oxide IV, per protocol. Likely from IV lasix. (3) Acute respiratory failure with hypoxia Code(s): J96.01 - ACUTE RESPIRATORY FAILURE WITH HYPOXIA Status: Acute Comment: THis is resolved now, pt continuos nto have Crackles. Will need Spoeech to evalaute for advancing diet. (4) Acute renal failure Status: Acute Qualifiers: Acute renal failure type: with acute tubular necrosis Qualified Code(s): N17.0 - Acute kidney failure with tubular necrosis Comment: Improving with IV fluids, but pt has Evaidence of Volume Over load, will do IV lasix. (5) Chronic atrial fibrillation Code(s): I48.2 - CHRONIC ATRIAL FIBRILLATION Status: Acute Comment: Rate variable, continue Coreg and Multaq, hold anticoagulation due to guaiac + stools (6) General weakness Code(s): R53.1 - WEAKNESS Status: Acute Comment: Secondary to #1 (7) Influenza A Code(s): J10.1 - FLU DUE TO OTH IDENT INFLUENZA VIRUS W OTH RESP MANIFEST Status: Acute Comment: COntinue on Tamiflu, monitor for developement of bacteria;l pneumonia. (8) Elevated liver enzymes Code(s): R74.8 - ABNORMAL LEVELS OF OTHER SERUM ENZYMES Status: Acute Comment: Trending down, GOI following, likely from heptic Congestion from CHF. 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 - Discharge Day Encounter end time: 14:10 Review of Systems - Review of Systems Constitutional: negative: fever, chills, sweats, weakness, malaise, other ENT: negative: Ear Pain, Ear Discharge, Nose Pain, Nose Discharge, Nose Congestion, Mouth Pain, Mouth Swelling, Throat Pain, Throat Swelling, Other Respiratory: Cough, Shortness of Breath, SOB with Excertion, Wheezing Cardiovascular: negative: chest pain, palpitations, orthopnea, paroxysmal nocturnal dyspnea, edema, light headedness, other Gastrointestinal: negative: Nausea, Vomiting, Abdominal Pain, Diarrhea, Constipation, Melena, Hematochezia, Other Genitourinary: negative: Dysuria, Frequency, Incontinence, Hematuria, Retention , Other Musculoskeletal: negative: Neck Pain, Shoulder Pain, Arm Pain, Back Pain, Hand Pain, Leg Pain, Foot Pain, Other Skin: negative: Rash, Lesions, Chris, Bruising, Other - Medications/Allergies Allergies/Adverse Reactions: Allergies Allergy/AdvReac Type Severity Reaction Status Date / Time amiodarone Allergy Intermediate Rash Verified 05/13/17 10:46 iodine Allergy Unknown Verified 05/13/17 10:46 Medications: Current Medications Acetaminophen (Tylenol) 1,000 mg PO Q6H PRN PRN Reason: Headache/Fever or Mild Pain Last Admin: 07/25/17 20:37 Dose: 1,000 mg Albuterol/Ipratropium (Duoneb) 3 ml NEB [id number] [facility] Last Admin: 08/05/17 14:01 Dose: 3 ml Cefdinir (Omnicef) 600 mg PO DAILY [facility] Dronedarone (Multaq) 200 mg PO BID-WM [facility] Last Admin: 08/05/17 16:32 Dose: 200 mg Sodium Chloride (1/2 Normal Saline) 1,000 mls @ 40 mls/hr IV .Q24H [facility] Last Admin: 08/05/17 06:54 Dose: 1,000 mls Levothyroxine Sodium (Synthroid) 50 mcg PO 0600 [facility] Methylprednisolone Sodium Succinate (Solu-Medrol) 20 mg IVP Q12HR [facility] Mineral Oil/White Petrolatum (Lacri-Lube Ointment) 0 gm EA EYE PRN PRN PRN Reason: Dry Eyes Discontinue Previous Narcotic Pain Medications And Benzodiazepines 1 each FS .ONE [facility] Stop: 08/28/17 21:47 Ondansetron HCl (Zofran Odt) 4 mg PO Q6H PRN PRN Reason: Nausea/Vomiting Ondansetron HCl (Zofran) 4 mg IVP Q6H PRN PRN Reason: Nausea/Vomiting Last Admin: 07/29/17 13:32 Dose: 4 mg Potassium Chloride (Klor-Con) 40 meq PER TUBE DAILY PRN PRN Reason: POTASSIUM < 3.5 Last Admin: 08/03/17 06:16 Dose: 40 meq Sodium Chloride (Flush - Normal Saline) 10 ml IVF Q12HR [facility] Last Admin: 08/05/17 09:39 Dose: Not Given Sodium Chloride (Flush - Normal Saline) 10 ml IVF PRN PRN PRN Reason: Saline Flush Last Admin: 08/02/17 11:45 Dose: 10 ml
[2017-08-05] MEDS ORDERED: Potassium Chloride 20 MEQ TAB PO SCH (17:00)
[2017-08-05 17:31] LABS: Anion Gap 13 mmol/L (10-20); BUN (Urea Nitrogen) 36 mg/dL (8.4-25.7); Calc. Creatinine Clearance 63 mL/min (70-130); Calcium 8.3 mg/dL (7.8-10.44); Carbon Dioxide 31 mmol/L (23-31); Chloride 97 mmol/L (98-107); Estimated GFR-MDRD 74; Glucose 119 mg/dL (83-110); Potassium 3.8 mmol/L (3.5-5.1); Sodium 137 mmol/L (136-145)
--- NOTE | 2017-08-05 21:23 | PRG ---
DATE OF SERVICE: 08/05/2017 SUBJECTIVE: The patient states he is feeling better today with no change in his shortness of breath. Currently, denies any nausea, vomiting, fevers, chills or abdominal pain. LABORATORY DATA: Chemistry with a sodium of 141, potassium 2.6, chloride 96, CO2 of 35, BUN 39, crea tinine 1.12, AST 189, ALT 418, alkaline phosphatase 111, total bilirubin 4.7. IMAGING STUDIES: No current GI imaging studies are available for review. ASSESSMENT AND PLAN: The patient is a 76-year-old male with past medical history of congestive heart failure, chronic atrial fibrillation on anticoagulation, peripheral vascular disease, pulmonary embo lism, hyperlipidemia, renal cell carcinoma, status post right nephrectomy, hypothyroidism, prostate c ancer, status post TURP and GERD presenting with significantly elevated liver function tests. Elevated liver function tests: The patient experienced acute respiratory failure on 07/29/2017 with subsequent intubation and mechanical ventilation. During this time, he was noted to be significantly hypotensive as well as acidotic with a pH of 7.2. Routine labs obtained afterward showed a signific ant increase in AST and ALT concerning for liver injury, although right upper quadrant ultrasound did not show any abnormalities that could potentially contribute to transaminitis. Repeat right upper q uadrant ultrasound with Doppler obtained on 08/03 did not show any intrahepatic abnormalities, but di d show mild dilatation of the hepatic vein and inferior vena cava concerning for hepatic congestion. With the discontinuation of the fluconazole as well as maintenance or normalization of his pressures , he has had slowly down trending transaminitis. At this point in time, the most likely culprit for his transaminitis was the hypotension experience during his respiratory distress and is slowly down t rending now mainly due to possible congestive hepatopathy. At this time, I would expect his transami nases and total bilirubin to slowly down trend. Given the fact that there may be some hepatic conges tion due to possible congestive heart failure, given the degree of elevation of his bilirubin, it may take some time for this to resolve as well. RECOMMENDATIONS: 1. Would continue to trend LFTs, but does not necessarily need daily trending at this point. 2. Would continue to avoid any hepatotoxic medications for possible drug induced liver injury. 3. Would continue to maintain normotensive pressures in this patient. We will sign off at this time. Please call with any questions.
[2017-08-06] MEDS: Levothyroxine Sodium 50 MCG TAB PO SCH (06:07)
[2017-08-06] MEDS: Sodium Chloride 0.45% 1,000 ML IV SCH (06:08)
[2017-08-06 06:40] LABS: Albumin 3.3 g/dL (3.4-4.8)
[2017-08-06 06:41] LABS: Chloride 98 mmol/L (98-107); Potassium 4.1 mmol/L (3.5-5.1); Sodium 138 mmol/L (136-145)
[2017-08-06 06:42] LABS: Calcium 8.6 mg/dL (7.8-10.44)
[2017-08-06 06:43] LABS: Globulin 2.2 g/dL (2.4-3.5); Glucose 127 mg/dL (83-110); Protein, Total 5.5 g/dL (5.8-8.1)
[2017-08-06 06:44] LABS: Anion Gap 14 mmol/L (10-20); Carbon Dioxide 30 mmol/L (23-31)
[2017-08-06 06:46] LABS: Alkaline Phosphatase 111 U/L (40-150); Calc. Creatinine Clearance 64 mL/min (70-130); Estimated GFR-MDRD 75
[2017-08-06 06:47] LABS: BUN (Urea Nitrogen) 35 mg/dL (8.4-25.7)
[2017-08-06 06:48] LABS: AST (SGOT) 155 U/L (5-34)
[2017-08-06 06:49] LABS: ALT (SGPT) 371 U/L (8-55)
[2017-08-06] MEDS: Dronedarone HCl 400 MG TAB PO SCH ×2 (08:56→17:05)
[2017-08-06] MEDS ORDERED: Cefdinir 300 MG CAP PO SCH (09:00)
--- NOTE | 2017-08-06 09:43 | RAD ---
RADIOGRAPH CHEST 1 VIEW: Date: 08/06/17 Time: 0758 HOURS HISTORY: 76-year-old male with dyspnea. COMPARISON: 08/04/17 at 0545 hours. FINDINGS: The previously demonstrated right internal jugular central venous catheter has been removed. There co ntinues to be severe cardiomegaly. Again noted are the signs of previous CABG. Heterogeneously distri buted mixed interstitial and alveolar infiltrates, mostly alveolar in the left perihilar upper lobe; and mildly, mostly interstitial, throughout some of the right lung. Relative sparing of the bilateral lung apices. Bilateral pleural effusions, left greater than right. The left pleural effusion appears larger on the current study compared to the previous, but this could be due to positional difference s. No pneumothorax. Otherwise no major interval change. IMPRESSION: 1. Cardiomegaly and interstitial densities which may represent pulmonary interstitial edema. This is evidence for congestive heart failure. 2. Left upper lobe air space density could represent pneumonia. This may be slightly worse now than on the previous study. 3. Bilateral small pleural effusions, left greater than right. The left effusion may be slightly lar magalis now. 4. Status post coronary artery bypass graft surgery is evidence for coronary atherosclerotic disease . KEILA [] POS: DINORAH
--- NOTE | 2017-08-06 09:53 | PRG ---
DATE OF SERVICE: 08/06/2017 SUBJECTIVE: He says he feels okay. OBJECTIVE: VITAL SIGNS: Temperature 98.5, pulse 100, respiration 16, O2 sat 98%, blood pressure 142/85. HEENT: Unremarkable. NECK: No JVD. CHEST: Clear to auscultation. CARDIAC: S1 and S2 regular. ABDOMEN: Soft. EXTREMITIES: No edema. SKIN: Jaundiced. LABORATORY DATA: Sodium 130, potassium 4.1, chloride 98, CO2 30, BUN 35, creatinine 0.9, glucose 127 . Total bilirubin was 5.0, AST 155, ALT 371, albumin 3.3. Chest x-ray demonstrates cardiomegaly. ASSESSMENT: 1. Status post acute respiratory failure related to metabolic acidosis. 2. Transaminitis with hyperbilirubinemia. 3. Renal insufficiency. 4. Status post influenza type A. 5. Chronic atrial fibrillation. PLAN: This is mainly a rehabilitation issue at this point. I would continue to avoid all hepatotoxi c drugs. The Multaq may have to be looked at more closely - Multaq has a contraindication in patient s with hepatic insufficiency. If such medications is necessary, I would consult Cardiology and see i f there are alternatives. No further recommendations at this time.
[2017-08-06] MEDS: Ondansetron HCl/PF 4 MG/2 ML Vial IVP PRN (12:22)
--- NOTE | 2017-08-06 14:39 | PDOC.PN ---
- Subjective Encounter Start Date: 08/06/17 Encounter Start Time: 15:00 Patient is seen today, drowsy and Lethargic, Daughter says he is tired after the exercise. - Objective Resuscitation Status: Resuscitation Status FULL:Full Resuscitation MAR Reviewed: Yes Vital Signs & Weight: Vital Signs (12 hours) Temp Pulse Resp BP Pulse Ox 08/06/17 12:15 98 F 107 H 18 138/87 98 08/06/17 11:14 119 H 18 08/06/17 10:05 97.8 F 127 H 18 134/77 20 L 08/06/17 08:50 97.8 F 127 H 18 08/06/17 08:10 98 08/06/17 08:08 109 H 16 08/06/17 04:00 98.5 F 93 18 142/85 H 95 08/06/17 02:47 100 Weight Admit Weight 144 lb 7 oz Weight 156 lb 4 oz Most Recent Monitor Data Heart Rate from ECG 101 NIBP 155/73 NIBP BP-Mean 106 Respiration from ECG 22 SpO2 99 I&O: 08/05/17 08/06/17 08/07/17 06:59 06:59 06:59 Intake Total 962 970.5 200 Output Total 2765 Balance -1803 970.5 200 Result Diagrams: 08/04/17 04:30 08/06/17 06:15 Radiology Reviewed by me: Yes (Has Infiltrate woorsening left upper lobe) Phys Exam - Physical Examination HEENT: PERRLA, moist MMs Neck: no nodes, no JVD Respiratory: no wheezing, no rales Cardiovascular: RRR, no significant murmur Gastrointestinal: soft, non-tender Musculoskeletal: no edema, pulses present Psychiatric: normal affect, A&O x 3 Dx/Plan (1) Pneumonia involving left lung Code(s): J18.9 - PNEUMONIA, UNSPECIFIED ORGANISM Status: Acute Qualifiers: Lung location: upper lobe of lung Comment: Patient has Worsening mental status, and elevated WBC could also be from Steroids but has left shift, and chest xray suggestive of Left Middle lobe pneumonia. will start Azithromycin and Rocephin. (2) Acute hypokalemia Code(s): E87.6 - HYPOKALEMIA Status: Acute Comment: Will correct per protocol with IV potassium, likely from lasix, this is discontinued by Dr. Ajit, will monitor fluid status. (3) Hypomagnesemia Code(s): E83.42 - HYPOMAGNESEMIA Status: Acute Comment: Will replace with Magnesium Oxide IV, per protocol. Likely from IV lasix. (4) Acute respiratory failure with hypoxia Code(s): J96.01 - ACUTE RESPIRATORY FAILURE WITH HYPOXIA Status: Acute Comment: THis is resolved now, pt continuos nto have Crackles. Will need Spoeech to evalaute for advancing diet. (5) Acute renal failure Status: Acute Qualifiers: Acute renal failure type: with acute tubular necrosis Qualified Code(s): N17.0 - Acute kidney failure with tubular necrosis Comment: Improving with IV fluids, but pt has Evaidence of Volume Over load, will do IV lasix. (6) Chronic atrial fibrillation Code(s): I48.2 - CHRONIC ATRIAL FIBRILLATION Status: Acute Comment: Rate variable, continue Coreg and Multaq, hold anticoagulation due to guaiac + stools (7) General weakness Code(s): R53.1 - WEAKNESS Status: Acute Comment: Secondary to #1 (8) Influenza A Code(s): J10.1 - FLU DUE TO OTH IDENT INFLUENZA VIRUS W OTH RESP MANIFEST Status: Acute Comment: COntinue on Tamiflu, monitor for developement of bacteria;l pneumonia. (9) Elevated liver enzymes Code(s): R74.8 - ABNORMAL LEVELS OF OTHER SERUM ENZYMES Status: Acute Comment: Trending down, GOI following, likely from heptic Congestion from CHF. - Plan cont current plan of care, plan discussed w/ family, continue antibiotics, PT/OT , speech therapy, respiratory therapy, incentive spirometry, DVT proph w/lovenox * . - Discharge Day Encounter end time: 15:35 Review of Systems - Review of Systems Constitutional: weakness, malaise Eyes: negative: Pain, Vision Change, Conjunctivae Inflammation, Eyelid Inflammation, Redness, Other ENT: negative: Ear Pain, Ear Discharge, Nose Pain, Nose Discharge, Nose Congestion, Mouth Pain, Mouth Swelling, Throat Pain, Throat Swelling, Other Respiratory: Cough, Wheezing Cardiovascular: negative: chest pain, palpitations, orthopnea, paroxysmal nocturnal dyspnea, edema, light headedness, other Gastrointestinal: negative: Nausea, Vomiting, Abdominal Pain, Diarrhea, Constipation, Melena, Hematochezia, Other Genitourinary: negative: Dysuria, Frequency, Incontinence, Hematuria, Retention , Other Musculoskeletal: negative: Neck Pain, Shoulder Pain, Arm Pain, Back Pain, Hand Pain, Leg Pain, Foot Pain, Other - Medications/Allergies Allergies/Adverse Reactions: Allergies Allergy/AdvReac Type Severity Reaction Status Date / Time amiodarone Allergy Intermediate Rash Verified 05/13/17 10:46 iodine Allergy Unknown Verified 05/13/17 10:46 Medications: Current Medications Acetaminophen (Tylenol) 1,000 mg PO Q6H PRN PRN Reason: Headache/Fever or Mild Pain Last Admin: 07/25/17 20:37 Dose: 1,000 mg Albuterol/Ipratropium (Duoneb) 3 ml NEB [id number] [facility] Last Admin: 08/06/17 11:14 Dose: 3 ml Cefdinir (Omnicef) 600 mg PO DAILY [facility] Last Admin: 08/06/17 08:56 Dose: 600 mg Dronedarone (Multaq) 200 mg PO BID-[facility] Last Admin: 08/06/17 08:56 Dose: 200 mg Levothyroxine Sodium (Synthroid) 50 mcg PO 0600 [facility] Last Admin: 08/06/17 06:07 Dose: 50 mcg Methylprednisolone Sodium Succinate (Solu-Medrol) 20 mg IVP Q12HR [facility] Last Admin: 08/06/17 08:57 Dose: 20 mg Mineral Oil/White Petrolatum (Lacri-Lube Ointment) 0 gm EA EYE PRN PRN PRN Reason: Dry Eyes Discontinue Previous Narcotic Pain Medications And Benzodiazepines 1 each FS .ONE [facility] Stop: 08/28/17 21:47 Ondansetron HCl (Zofran Odt) 4 mg PO Q6H PRN PRN Reason: Nausea/Vomiting Ondansetron HCl (Zofran) 4 mg IVP Q6H PRN PRN Reason: Nausea/Vomiting Last Admin: 08/06/17 12:22 Dose: 4 mg Potassium Chloride (Klor-Con) 40 meq PER TUBE DAILY PRN PRN Reason: POTASSIUM < 3.5 Last Admin: 08/03/17 06:16 Dose: 40 meq Sodium Chloride (Flush - Normal Saline) 10 ml IVF Q12HR [facility] Last Admin: 08/06/17 08:57 Dose: 10 ml Sodium Chloride (Flush - Normal Saline) 10 ml IVF PRN PRN PRN Reason: Saline Flush Last Admin: 08/06/17 12:23 Dose: 10 ml
[2017-08-06] MEDS ORDERED: cefTRIAXone\\ROCEPHIN 1 GM in Sodium Chloride 0.9% 100 ML IVPB SCH (14:45)
[2017-08-06] MEDS ORDERED: Azithromycin 500 MG in Sodium Chloride 0.9% 250 ML 250 ML IVPB SCH (15:00)
[2017-08-06] MEDS: cefTRIAXone\\ROCEPHIN 1 GM, Syringe 0.4 ML in Sterile Water 9.6 ML SLOW IVP SCH (16:36)
[2017-08-06] MEDS: Azithromycin 500 MG in Sodium Chloride 0.9% 250 ML 250 ML IVPB SCH (16:36)
[2017-08-06] MEDS ORDERED: Lorazepam 0.5 MG TAB PO SCH (18:45)
[2017-08-06] MEDS: Acetaminophen 500 MG TAB PO PRN (21:59)
[2017-08-07] MEDS: Levothyroxine Sodium 50 MCG TAB PO SCH (06:24)
[2017-08-07] MEDS: Dronedarone HCl 400 MG TAB PO SCH ×2 (09:40→16:54)
[2017-08-07 10:46] LABS: Anion Gap 23 mmol/L (10-20); BUN (Urea Nitrogen) 45 mg/dL (8.4-25.7); Calc. Creatinine Clearance 50 mL/min (70-130); Calcium 8.8 mg/dL (7.8-10.44); Carbon Dioxide 24 mmol/L (23-31); Chloride 98 mmol/L (98-107); Estimated GFR-MDRD 57; Glucose 103 mg/dL (83-110); Potassium 4.8 mmol/L (3.5-5.1); Sodium 140 mmol/L (136-145)
[2017-08-07 11:02] LABS: Hemoglobin 12.6 g/dL (14.0-18.0); Mean Platelet Volume 10.1 fL (7.4-10.4); Platelet Count 79 thou/uL (130-400); RBC Distribution Width 19.3 % (11.5-14.5); Red Blood Cell (RBC) Count 4.84 mill/uL (4.70-6.10); White Blood Cell (WBC) Count 13.7 thou/uL (4.8-10.8)
[2017-08-07 11:12] LABS: #Basophils 0.1 thou/uL (0.0-0.2); #Lymphocytes 1.1 thou/uL (1.20-3.40); #Monocytes 1.4 thou/uL (0.11-0.59); #Neutrophils 11.1 thou/uL (1.40-6.50); %Basophils 0.5 % (0.0-1.0); %Eosinophils 0.3 % (0.0-10.0); %Lymphocytes 8.1 % (21.0-51.0); %Monocytes 9.9 % (0.0-10.0); %Neutrophils 81.2 % (42.0-75.0); Acanthocytes SLIGHT = 1-5 cells (100X) (None Seen); Anisocytosis SLIGHT = 6-15 cells (100X) (0-5/hpf); Hypochromia SLIGHT = 6-15 cells (100X) (0-5/hpf); MDiff Complete? YES; PLT Morphology Comment Appears Decreased
--- NOTE | 2017-08-07 15:54 | PDOC.PN ---
- Subjective Encounter Start Date: 08/07/17 Encounter Start Time: 11:00 Patient is seen today, disoriented and very lethargic, Discussed with about paitent prognosis, explained he has new pneumonia and has worsening jaundice and Gi following. - Objective Resuscitation Status: Resuscitation Status FULL:Full Resuscitation MAR Reviewed: Yes Vital Signs & Weight: Vital Signs (12 hours) Temp Pulse Resp BP Pulse Ox 08/07/17 13:25 114 H 30 H 99 08/07/17 12:13 26 H 08/07/17 12:04 97.9 F 113 H 16 141/89 H 98 08/07/17 10:26 97.5 F L 118 H 28 H 08/07/17 10:14 97.5 F L 118 H 28 H 135/90 100 08/07/17 08:25 97.6 F 102 H 36 H 100 08/07/17 08:00 97.6 F 102 H 36 H 127/90 100 08/07/17 07:53 102 H 32 H 08/07/17 04:00 96.5 F L 104 H 20 131/77 97 Weight Admit Weight 144 lb 7 oz Weight 157 lb Most Recent Monitor Data Heart Rate from ECG 101 NIBP 155/73 NIBP BP-Mean 106 Respiration from ECG 22 SpO2 99 I&O: 08/06/17 08/07/17 08/08/17 06:59 06:59 06:59 Intake Total 970.5 200 Balance 970.5 200 Result Diagrams: 08/07/17 10:22 08/07/17 10:22 Radiology Reviewed by me: Yes Phys Exam - Physical Examination HEENT: PERRLA, moist MMs Neck: no nodes, no JVD Respiratory: no wheezing, no rales Cardiovascular: RRR, no significant murmur Gastrointestinal: soft, non-tender Musculoskeletal: no edema, pulses present Neurological: non-focal, normal sensation Lymphatic: no nodes Dx/Plan (1) Pneumonia involving left lung Code(s): J18.9 - PNEUMONIA, UNSPECIFIED ORGANISM Status: Acute Qualifiers: Lung location: upper lobe of lung Comment: Patient has Worsening mental status, and elevated WBC could also be from Steroids but has left shift, and chest xray suggestive of Left Middle lobe pneumonia. will start Azithromycin and Rocephin. cotninue to Monitor, likely has Aspiration but no evidence of Anerobic infection. (2) Acute hypokalemia Code(s): E87.6 - HYPOKALEMIA Status: Acute Comment: resolved. (3) Hypomagnesemia Code(s): E83.42 - HYPOMAGNESEMIA Status: Acute Comment: resolved (4) Acute respiratory failure with hypoxia Code(s): J96.01 - ACUTE RESPIRATORY FAILURE WITH HYPOXIA Status: Acute Comment: pt continuos nto have Crackles. has elevated BNP 1999, his echo done this admission showed low EF. Will do lasix 20mg IV BID. (5) Acute renal failure Status: Acute Qualifiers: Acute renal failure type: with acute tubular necrosis Qualified Code(s): N17.0 - Acute kidney failure with tubular necrosis Comment: resolved (6) Chronic atrial fibrillation Code(s): I48.2 - CHRONIC ATRIAL FIBRILLATION Status: Acute Comment: Rate variable, continue Coreg and Multaq, hold anticoagulation due to guaiac + stools (7) General weakness Code(s): R53.1 - WEAKNESS Status: Acute Comment: Secondary to #1 (8) Influenza A Code(s): J10.1 - FLU DUE TO OTH IDENT INFLUENZA VIRUS W OTH RESP MANIFEST Status: Acute Comment: COntinue on Tamiflu, monitor for developement of bacteria;l pneumonia. (9) Elevated liver enzymes Code(s): R74.8 - ABNORMAL LEVELS OF OTHER SERUM ENZYMES Status: Acute Comment: jaundiced skin, paitent has known h/o heavy alcohol drinking.Trending down, GOI following, likely from heptic Congestion from CHF. (10) Acute encephalopathy Code(s): G93.40 - ENCEPHALOPATHY, UNSPECIFIED Status: Acute Comment: Will check Ammonia level. Likely has hepatic Encephalopathy from chronci alcohol use , will also do thiamine and Folic acid. - Plan cont current plan of care, plan discussed w/ family, continue antibiotics, PT/OT , social insurance adviser, speech therapy, respiratory therapy, incentive spirometry, DVT proph w/lovenox * . - Discharge Day Encounter end time: 11:45 Review of Systems - Review of Systems Other: UNABLE TO GET ro DUE TO ams. - Medications/Allergies Allergies/Adverse Reactions: Allergies Allergy/AdvReac Type Severity Reaction Status Date / Time amiodarone Allergy Intermediate Rash Verified 05/13/17 10:46 iodine Allergy Unknown Verified 11/01/17 10:46 Medications: Current Medications Acetaminophen (Tylenol) 1,000 mg PO Q6H PRN PRN Reason: Headache/Fever or Mild Pain Last Admin: 08/06/17 21:59 Dose: 1,000 mg Albuterol/Ipratropium (Duoneb) 3 ml NEB [id number] [facility] Last Admin: 08/07/17 13:25 Dose: 3 ml Dronedarone (Multaq) 200 mg PO BID-WM [facility] Last Admin: 08/07/17 09:40 Dose: 200 mg Ceftriaxone Sodium 1 gm/ (Syringe 0.4 ml/ Sterile Water) 10 mls @ 120 mls/hr SLOW IVP 1600 [facility] Last Admin: 08/06/17 16:36 Dose: 10 mls Azithromycin 500 mg/ Sodium (Chloride) 250 mls @ 250 mls/hr IVPB 1700 [facility] Last Admin: 08/06/17 16:36 Dose: 250 mls Levothyroxine Sodium (Synthroid) 50 mcg PO 0600 [facility] Last Admin: 08/07/17 06:24 Dose: 50 mcg Methylprednisolone Sodium Succinate (Solu-Medrol) 20 mg IVP Q12HR [facility] Last Admin: 08/07/17 09:40 Dose: 20 mg Mineral Oil/White Petrolatum (Lacri-Lube Ointment) 0 gm EA EYE PRN PRN PRN Reason: Dry Eyes Discontinue Previous Narcotic Pain Medications And Benzodiazepines 1 each FS .ONE [facility] Stop: 08/28/17 21:47 Ondansetron HCl (Zofran Odt) 4 mg PO Q6H PRN PRN Reason: Nausea/Vomiting Ondansetron HCl (Zofran) 4 mg IVP Q6H PRN PRN Reason: Nausea/Vomiting Last Admin: 08/06/17 12:22 Dose: 4 mg Sodium Chloride (Flush - Normal Saline) 10 ml IVF Q12HR [facility] Last Admin: 08/07/17 09:40 Dose: 10 ml Sodium Chloride (Flush - Normal Saline) 10 ml IVF PRN PRN PRN Reason: Saline Flush Last Admin: 08/06/17 12:23 Dose: 10 ml
[2017-08-07] MEDS ORDERED: Furosemide 20 MG/2 ML VIAL SLOW IVP SCH (16:45)
--- NOTE | 2017-08-07 16:45 | PDOC.PULPN ---
Progress Note: Subj/Obj - Subjective Date: 08/07/17 Time: 16:43 Narrative: about the same - ROS Respiratory: short of breath - Objective Allergies/Adverse Reactions: Allergies Allergy/AdvReac Type Severity Reaction Status Date / Time amiodarone Allergy Intermediate Rash Verified 05/13/17 10:46 iodine Allergy Unknown Verified 05/13/17 10:46 Medications: Current Medications Acetaminophen (Tylenol) 1,000 mg PO Q6H PRN PRN Reason: Headache/Fever or Mild Pain Last Admin: 08/06/17 21:59 Dose: 1,000 mg Albuterol/Ipratropium (Duoneb) 3 ml NEB [id number] [facility] Last Admin: 08/07/17 13:25 Dose: 3 ml Dronedarone (Multaq) 200 mg PO BID-WM [facility] Last Admin: 08/07/17 09:40 Dose: 200 mg Folic Acid (Folvite) 1 mg PO DAILY [facility] Furosemide (Lasix) 20 mg SLOW IVP 0600,1400 [facility] Ceftriaxone Sodium 1 gm/ (Syringe 0.4 ml/ Sterile Water) 10 mls @ 120 mls/hr SLOW IVP 1600 [facility] Last Admin: 08/06/17 16:36 Dose: 10 mls Azithromycin 500 mg/ Sodium (Chloride) 250 mls @ 250 mls/hr IVPB 1700 [facility] Last Admin: 08/06/17 16:36 Dose: 250 mls Levothyroxine Sodium (Synthroid) 50 mcg PO 0600 [facility] Last Admin: 08/07/17 06:24 Dose: 50 mcg Methylprednisolone Sodium Succinate (Solu-Medrol) 20 mg IVP Q12HR [facility] Last Admin: 08/07/17 09:40 Dose: 20 mg Mineral Oil/White Petrolatum (Lacri-Lube Ointment) 0 gm EA EYE PRN PRN PRN Reason: Dry Eyes Discontinue Previous Narcotic Pain Medications And Benzodiazepines 1 each FS .ONE [facility] Stop: 08/28/17 21:47 Ondansetron HCl (Zofran Odt) 4 mg PO Q6H PRN PRN Reason: Nausea/Vomiting Ondansetron HCl (Zofran) 4 mg IVP Q6H PRN PRN Reason: Nausea/Vomiting Last Admin: 08/06/17 12:22 Dose: 4 mg Sodium Chloride (Flush - Normal Saline) 10 ml IVF Q12HR [facility] Last Admin: 08/07/17 09:40 Dose: 10 ml Sodium Chloride (Flush - Normal Saline) 10 ml IVF PRN PRN PRN Reason: Saline Flush Last Admin: 08/06/17 12:23 Dose: 10 ml Thiamine HCl (Thiamine) 100 mg PO DAILY [facility] MAR Reviewed: Yes Vital Signs: Vital Signs Temp 97.5 F L 08/07/17 16:36 Pulse 122 H 08/07/17 16:36 Resp 30 H 08/07/17 16:36 BP 147/95 H 08/07/17 16:36 Pulse Ox 100 08/07/17 16:36 Intake & Output 08/06/17 08/07/17 08/07/17 18:59 06:59 18:59 Intake Total 200 Balance 200 Weight 157 lb Intake: Oral 200 Other: Voiding Method Diaper Diaper Diaper Progress Note: Exam - Physical Exam Constitutional: NAD HEENT: PERRLA, sclera anicteric Neck: no nodes, no JVD Deviation from normal: tachy Respiratory: rales Gastrointestinal: soft, non-tender Musculoskeletal: edema present Neurological: non-focal Psychiatric: normal affect, A&O x 3 Skin: no rash Progress Note: Data - Labs Result Diagrams: 08/07/17 10:22 08/07/17 10:22 Lab results: Laboratory Results 08/05/17 08/06/17 08/06/17 17:00 06:15 08:52 WBC RBC Hgb Hct MCV MCH MCHC RDW Plt Count MPV Neutrophils % Neutrophils % (Manual) Lymphocytes % Monocytes % Eosinophils % Basophils % Neutrophils # Lymphocytes # Monocytes # Eosinophils # Basophils # Hypochromia Plt Morphology Comment Anisocytosis Acanthocytes (Spur) Sodium 137 138 Potassium 3.8 4.1 Chloride 97 L 98 Carbon Dioxide 31 30 Anion Gap 13 14 BUN 36 H 35 H Creatinine 0.98 0.97 Estimated GFR (MDRD) 74 75 Glucose 119 H 127 H Calcium 8.3 8.6 Total Bilirubin 5.0 H AST 155 H ALT 371 H Alkaline Phosphatase 111 Ammonia B-Natriuretic Peptide 2614.1 H Serum Total Protein 5.5 L Albumin 3.3 L Globulin 2.2 L Albumin/Globulin Ratio 1.5 08/07/17 08/07/17 08/07/17 10:22 10:22 16:14 WBC 13.7 H RBC 4.84 Hgb 12.6 L Hct 40.6 L MCV 84.0 MCH 26.0 L MCHC 31.0 L RDW 19.3 H Plt Count 79 L MPV 10.1 Neutrophils % 81.2 H Neutrophils % (Manual) Not Reportable Lymphocytes % 8.1 L Monocytes % 9.9 Eosinophils % 0.3 Basophils % 0.5 Neutrophils # 11.1 H Lymphocytes # 1.1 L Monocytes # 1.4 H Eosinophils # 0.0 Basophils # 0.1 Hypochromia SLIGHT = 6-15 cells Plt Morphology Comment Appears Decreased L Anisocytosis SLIGHT = 6-15 cells Acanthocytes (Spur) SLIGHT = 1-5 cells Sodium 140 Potassium 4.8 Chloride 98 Carbon Dioxide 24 Anion Gap 23 H BUN 45 H Creatinine 1.24 Estimated GFR (MDRD) 57 Glucose 103 Calcium 8.8 Total Bilirubin AST ALT Alkaline Phosphatase Ammonia 34 B-Natriuretic Peptide Serum Total Protein Albumin Globulin Albumin/Globulin Ratio Progress Note: A/P - Problems (1) Acute respiratory failure with hypoxia Current Visit: Yes Status: Acute Code(s): J96.01 - ACUTE RESPIRATORY FAILURE WITH HYPOXIA (2) Acute renal failure Current Visit: Yes Status: Acute Qualifiers: Acute renal failure type: with acute tubular necrosis Qualified Code(s): N17.0 - Acute kidney failure with tubular necrosis (3) Chronic atrial fibrillation Current Visit: Yes Status: Acute Code(s): I48.2 - CHRONIC ATRIAL FIBRILLATION (4) Influenza A Current Visit: Yes Status: Acute Code(s): J10.1 - FLU DUE TO OTH IDENT INFLUENZA VIRUS W OTH RESP MANIFEST (5) Transaminitis Current Visit: Yes Status: Acute Code(s): R74.0 - NONSPEC ELEV OF LEVELS OF TRANSAMNS & LACTIC ACID DEHYDRGNSE - Plan Plan: Not doing very well, but no worse than 2 days ago. Unlikely to improve Need to discuss DNR.
[2017-08-07] MEDS: cefTRIAXone\\ROCEPHIN 1 GM, Syringe 0.4 ML in Sterile Water 9.6 ML SLOW IVP SCH (16:53)
[2017-08-07] MEDS: Azithromycin 500 MG in Sodium Chloride 0.9% 250 ML 250 ML IVPB SCH (16:53)
[2017-08-08] MEDS: Furosemide 20 MG/2 ML VIAL SLOW IVP SCH ×2 (07:30→14:58)
[2017-08-08] MEDS: Levothyroxine Sodium 50 MCG TAB PO SCH (07:30)
[2017-08-08] MEDS: Dronedarone HCl 400 MG TAB PO SCH ×2 (09:34→16:33)
[2017-08-08] MEDS: Folic Acid 1 MG TAB PO SCH ×2 (09:37→09:38)
--- NOTE | 2017-08-08 12:22 | PRG ---
DATE OF SERVICE: 08/08/2017 SUBJECTIVE: He continues to be somewhat delusional in his behavior, although he is calm today. OBJECTIVE: VITAL SIGNS: On exam, his temperature is 97.2, pulse 117, respirations 28, O2 sat 96% on 3 liters, b lood pressure 125/93. HEENT: Unremarkable. NECK: No JVD. LUNGS: Some mild expiratory wheezing. CARDIAC: S1 and S2 regular. ABDOMEN: Soft. EXTREMITIES: Trace edema. ASSESSMENT: 1. Status post respiratory failure requiring mechanical ventilation. 2. Resolved metabolic acidosis. 3. Transaminitis with hyperbilirubinemia, which has improved. 4. Renal insufficiency, improved. 5. Status post influenza type A. 6. Chronic atrial fibrillation. PLAN: I discussed end-of-life issues with the patient's who was up here today and it sounds lik e he has been declining steadily since late April. I told her that I did not think that he would p robably return to his previous quality previous quality of life. I told her that I thought putting h im through another ICU stay would be a mistake as he is at high risk at any time to have respiratory failure again. She has agreed to DNR status. We will continue all other measures.
[2017-08-08] MEDS: cefTRIAXone\\ROCEPHIN 1 GM, Syringe 0.4 ML in Sterile Water 9.6 ML SLOW IVP SCH (15:00)
--- NOTE | 2017-08-08 15:10 | PDOC.PN ---
- Subjective Encounter Start Date: 08/08/17 Encounter Start Time: 14:00 Patient is seen today, very drowsy and and unable to Speak, discussed with at bedside about poor prognosis, as pt is not responding well to treatment. No chest pain or SOB. - Objective Resuscitation Status: Resuscitation Status DNR:Do Not Resuscitate MAR Reviewed: Yes Vital Signs & Weight: Vital Signs (12 hours) Temp Pulse Resp BP BP Pulse Ox 08/08/17 13:27 122 H 25 H 98 08/08/17 12:12 97.7 F 115 H 16 147/94 H 100 08/08/17 09:28 117 H 28 H 96 08/08/17 08:05 97.2 F L 117 H 28 H 96 08/08/17 07:19 97.2 F L 112 H 16 125/93 H 96 08/08/17 05:35 116 H 25 H 95 08/08/17 04:00 97.8 F 114 H 20 137/92 H 100 Weight Admit Weight 144 lb 7 oz Weight 156 lb 4.924 oz Most Recent Monitor Data Heart Rate from ECG 101 NIBP 155/73 NIBP BP-Mean 106 Respiration from ECG 22 SpO2 99 I&O: 08/07/17 08/08/17 08/09/17 06:59 06:59 06:59 Intake Total 200 650 Balance 200 650 Result Diagrams: 08/07/17 10:22 08/07/17 10:22 Radiology Reviewed by me: Yes Phys Exam - Physical Examination HEENT: PERRLA, moist MMs Neck: no nodes, no JVD Respiratory: no wheezing, clear to auscultation bilateral Cardiovascular: RRR, no significant murmur Gastrointestinal: soft, non-tender Musculoskeletal: no edema, pulses present Neurological: non-focal Dx/Plan (1) Pneumonia involving left lung Code(s): J18.9 - PNEUMONIA, UNSPECIFIED ORGANISM Status: Acute Qualifiers: Lung location: upper lobe of lung Comment: Patient has Worsening mental status, and elevated WBC could also be from Steroids but has left shift, and chest xray suggestive of Left Middle lobe pneumonia. will start Azithromycin and Rocephin. cotninue to Monitor, likely has Aspiration but no evidence of Anerobic infection. continue with IV antibiotics. (2) Acute hypokalemia Code(s): E87.6 - HYPOKALEMIA Status: Acute Comment: resolved. (3) Hypomagnesemia Code(s): E83.42 - HYPOMAGNESEMIA Status: Acute Comment: resolved (4) Acute respiratory failure with hypoxia Code(s): J96.01 - ACUTE RESPIRATORY FAILURE WITH HYPOXIA Status: Acute Comment: pt radha lio have Crackles. has elevated BNP 1999, his echo done this admission showed low EF. Will do lasix 20mg IV BID. (5) Acute renal failure Status: Acute Qualifiers: Acute renal failure type: with acute tubular necrosis Qualified Code(s): N17.0 - Acute kidney failure with tubular necrosis Comment: resolved (6) Chronic atrial fibrillation Code(s): I48.2 - CHRONIC ATRIAL FIBRILLATION Status: Acute Comment: Rate variable, continue Coreg and Multaq, hold anticoagulation due to guaiac + stools (7) General weakness Code(s): R53.1 - WEAKNESS Status: Acute Comment: Secondary to #1 (8) Influenza A Code(s): J10.1 - FLU DUE TO OTH IDENT INFLUENZA VIRUS W OTH RESP MANIFEST Status: Acute Comment: COntinue on Tamiflu, monitor for developement of bacteria;l pneumonia. (9) Elevated liver enzymes Code(s): R74.8 - ABNORMAL LEVELS OF OTHER SERUM ENZYMES Status: Acute Comment: jaundiced skin, paitent has known h/o heavy alcohol drinking.Trending down, GOI following, likely from heptic Congestion from CHF. (10) Acute encephalopathy Code(s): G93.40 - ENCEPHALOPATHY, UNSPECIFIED Status: Acute Comment: Ammonia level was normal, continue thiamine and Folic acid. 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 If not respong to PT/OT, will consider Hospice. - Discharge Day Encounter end time: 14:35 Review of Systems - Review of Systems Other: Unable to Discuss about ROS with patient he is too drowsy. - Medications/Allergies Allergies/Adverse Reactions: Allergies Allergy/AdvReac Type Severity Reaction Status Date / Time amiodarone Allergy Intermediate Rash Verified 05/13/17 10:46 iodine Allergy Unknown Verified 05/13/17 10:46 Medications: Current Medications Acetaminophen (Tylenol) 1,000 mg PO Q6H PRN PRN Reason: Headache/Fever or Mild Pain Last Admin: 08/06/17 21:59 Dose: 1,000 mg Albuterol/Ipratropium (Duoneb) 3 ml NEB [id number] [facility] Last Admin: 08/08/17 13:27 Dose: 3 ml Dronedarone (Multaq) 200 mg PO BID-WM [facility] Last Admin: 08/08/17 09:34 Dose: 200 mg Folic Acid (Folvite) 1 mg PO DAILY [facility] Last Admin: 08/08/17 09:38 Dose: 1 mg Furosemide (Lasix) 20 mg SLOW IVP 0600,1400 [facility] Last Admin: 08/08/17 14:58 Dose: 20 mg Ceftriaxone Sodium 1 gm/ (Syringe 0.4 ml/ Sterile Water) 10 mls @ 120 mls/hr SLOW IVP 1600 [facility] Last Admin: 08/08/17 15:00 Dose: 10 mls Azithromycin 500 mg/ Sodium (Chloride) 250 mls @ 250 mls/hr IVPB 1700 [facility] Last Admin: 08/07/17 16:53 Dose: 250 mls Levothyroxine Sodium (Synthroid) 50 mcg PO 0600 [facility] Last Admin: 08/08/17 07:30 Dose: 50 mcg Methylprednisolone Sodium Succinate (Solu-Medrol) 20 mg IVP Q12HR [facility] Last Admin: 08/08/17 09:37 Dose: 20 mg Mineral Oil/White Petrolatum (Lacri-Lube Ointment) 0 gm EA EYE PRN PRN PRN Reason: Dry Eyes Discontinue Previous Narcotic Pain Medications And Benzodiazepines 1 each FS .ONE [facility] Stop: 08/28/17 21:47 Ondansetron HCl (Zofran Odt) 4 mg PO Q6H PRN PRN Reason: Nausea/Vomiting Ondansetron HCl (Zofran) 4 mg IVP Q6H PRN PRN Reason: Nausea/Vomiting Last Admin: 08/06/17 12:22 Dose: 4 mg Sodium Chloride (Flush - Normal Saline) 10 ml IVF Q12HR [facility] Last Admin: 08/08/17 09:42 Dose: 10 ml Sodium Chloride (Flush - Normal Saline) 10 ml IVF PRN PRN PRN Reason: Saline Flush Last Admin: 08/07/17 16:53 Dose: 10 ml Thiamine HCl (Thiamine) 100 mg PO DAILY [facility] Last Admin: 08/08/17 09:37 Dose: 100 mg
[2017-08-08] MEDS: Azithromycin 500 MG in Sodium Chloride 0.9% 250 ML 250 ML IVPB SCH (16:32)
--- NOTE | 2017-08-08 18:41 | EKG ---
Test Reason : Blood Pressure : / mmHG Vent. Rate : 100 BPM Atrial Rate : 060 BPM P-R Int : 000 ms QRS Dur : 124 ms QT Int : 378 ms P-R-T Axes : 000 081 236 degrees QTc Int : 487 ms Atrial fibrillation with premature ventricular or aberrantly conducted complexes Right bundle branch block Abnormal ECG Confirmed by KYLE FERGUSON, AMARI ([id number]), writer editor PAULINA DENNY ([id number]) on 08/08/2017 6:40:22 PM Referred By: Confirmed By:AMARI WRIGHT MD
[2017-08-09] MEDS: Levothyroxine Sodium 50 MCG TAB PO SCH (06:18)
[2017-08-09] MEDS: Furosemide 20 MG/2 ML VIAL SLOW IVP SCH ×2 (06:18→14:18)
[2017-08-09] MEDS: Dronedarone HCl 400 MG TAB PO SCH ×2 (07:42→16:55)
[2017-08-09] MEDS: Folic Acid 1 MG TAB PO SCH (07:45)
--- NOTE | 2017-08-09 11:21 | RAD ---
AP VIEW CHEST: Date: 08/09/17 HISTORY: Shortness of breath. COMPARISON: 08/06/17. FINDINGS: AP view of chest demonstrates cardiomegaly. Sternotomy wires seen. Surgical clips seen in the mediast inum. There is marked pulmonary vascular congestion. Diffuse air space opacities seen bilaterally. Radiogra phic appearance of the chest is stable. No newly developed masses or lesions seen. IMPRESSION: Cardiomegaly, pulmonary vascular congestion, and bilateral perihilar and diffuse air space opacities, compatible with pulmonary edema or bilateral pneumonia. POS: [facility]
--- NOTE | 2017-08-09 15:11 | PDOC.PN ---
- Subjective Encounter Start Date: 08/09/17 Encounter Start Time: 08:00 Lamont is seeen today, drowsy and diosriented. Chest xray pending this morning. - Objective Resuscitation Status: Resuscitation Status DNR:Do Not Resuscitate MAR Reviewed: Yes Vital Signs & Weight: Vital Signs (12 hours) Temp Pulse Resp BP Pulse Ox 08/09/17 13:45 112 H 24 H 95 08/09/17 11:39 97 F L 109 H 22 H 113/82 100 08/09/17 09:28 117 H 22 H 93 L 08/09/17 08:00 97.4 F L 117 H 22 H 93 L 08/09/17 07:15 97.4 F L 117 H 22 H 113/70 08/09/17 05:41 104 H 22 H 93 L Weight Admit Weight 144 lb 7 oz Weight 156 lb 9.6 oz Most Recent Monitor Data Heart Rate from ECG 101 NIBP 155/73 NIBP BP-Mean 106 Respiration from ECG 22 SpO2 99 I&O: 08/08/17 08/09/17 08/10/17 06:59 06:59 06:59 Intake Total 650 Balance 650 Result Diagrams: 08/07/17 10:22 08/07/17 10:22 Radiology Reviewed by me: Yes Phys Exam - Physical Examination Neck: no nodes, no JVD Respiratory: wheezing present Cardiovascular: RRR, no significant murmur Gastrointestinal: soft, non-tender Musculoskeletal: no edema, pulses present Neurological: non-focal, normal sensation Dx/Plan (1) Pneumonia involving left lung Code(s): J18.9 - PNEUMONIA, UNSPECIFIED ORGANISM Status: Acute Qualifiers: Lung location: upper lobe of lung Comment: Patient has Worsening mental status, and elevated WBC could also be from Steroids but has left shift, and chest xray suggestive of Left Middle lobe pneumonia. will start Azithromycin and Rocephin. cotninue to Monitor, likely has Aspiration but no evidence of Anerobic infection. continue with IV antibiotics. (2) Acute hypokalemia Code(s): E87.6 - HYPOKALEMIA Status: Acute Comment: resolved. (3) Hypomagnesemia Code(s): E83.42 - HYPOMAGNESEMIA Status: Acute Comment: resolved (4) Acute respiratory failure with hypoxia Code(s): J96.01 - ACUTE RESPIRATORY FAILURE WITH HYPOXIA Status: Acute Comment: pt vanessaos nto have Crackles. has elevated BNP 1999, his echo done this admission showed low EF. Will continue lasix 20mg IV BID. (5) Acute renal failure Status: Acute Qualifiers: Acute renal failure type: with acute tubular necrosis Qualified Code(s): N17.0 - Acute kidney failure with tubular necrosis Comment: resolved (6) Chronic atrial fibrillation Code(s): I48.2 - CHRONIC ATRIAL FIBRILLATION Status: Acute Comment: Rate variable, continue Coreg and Multaq, hold anticoagulation due to guaiac + stools (7) General weakness Code(s): R53.1 - WEAKNESS Status: Acute Comment: Secondary to #1 (8) Influenza A Code(s): J10.1 - FLU DUE TO OTH IDENT INFLUENZA VIRUS W OTH RESP MANIFEST Status: Acute Comment: COntinue on Tamiflu, monitor for developement of bacteria;l pneumonia. (9) Elevated liver enzymes Code(s): R74.8 - ABNORMAL LEVELS OF OTHER SERUM ENZYMES Status: Acute Comment: jaundiced skin, paitent has known h/o heavy alcohol drinking.Trending down, GOI following, likely from heptic Congestion from CHF. (10) Acute encephalopathy Code(s): G93.40 - ENCEPHALOPATHY, UNSPECIFIED Status: Acute Comment: Ammonia level was normal, continue thiamine and Folic acid. 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 - Discharge Day Encounter end time: 08:25 Review of Systems - Review of Systems Other: COuld not obtain ROS due to altered emntal status. - Medications/Allergies Allergies/Adverse Reactions: Allergies Allergy/AdvReac Type Severity Reaction Status Date / Time amiodarone Allergy Intermediate Rash Verified 05/13/17 10:46 iodine Allergy Unknown Verified 05/13/17 10:46 Medications: Current Medications Acetaminophen (Tylenol) 1,000 mg PO Q6H PRN PRN Reason: Headache/Fever or Mild Pain Last Admin: 08/06/17 21:59 Dose: 1,000 mg Albuterol/Ipratropium (Duoneb) 3 ml NEB [id number] [facility] Last Admin: 08/09/17 13:45 Dose: 3 ml Dronedarone (Multaq) 200 mg PO BID-[facility] Last Admin: 08/09/17 07:42 Dose: 200 mg Folic Acid (Folvite) 1 mg PO DAILY [facility] Last Admin: 08/09/17 07:45 Dose: 1 mg Furosemide (Lasix) 20 mg SLOW IVP 0600,1400 [facility] Last Admin: 08/09/17 14:18 Dose: 20 mg Ceftriaxone Sodium 1 gm/ (Syringe 0.4 ml/ Sterile Water) 10 mls @ 120 mls/hr SLOW IVP 1600 [facility] Last Admin: 08/08/17 15:00 Dose: 10 mls Azithromycin 500 mg/ Sodium (Chloride) 250 mls @ 250 mls/hr IVPB 1700 [facility] Last Admin: 08/08/17 16:32 Dose: 250 mls Levothyroxine Sodium (Synthroid) 50 mcg PO 0600 [facility] Last Admin: 08/09/17 06:18 Dose: 50 mcg Methylprednisolone Sodium Succinate (Solu-Medrol) 20 mg IVP Q12HR [facility] Last Admin: 08/09/17 07:42 Dose: 20 mg Mineral Oil/White Petrolatum (Lacri-Lube Ointment) 0 gm EA EYE PRN PRN PRN Reason: Dry Eyes Discontinue Previous Narcotic Pain Medications And Benzodiazepines 1 each FS .ONE [facility] Stop: 08/28/17 21:47 Ondansetron HCl (Zofran Odt) 4 mg PO Q6H PRN PRN Reason: Nausea/Vomiting Ondansetron HCl (Zofran) 4 mg IVP Q6H PRN PRN Reason: Nausea/Vomiting Last Admin: 08/06/17 12:22 Dose: 4 mg Sodium Chloride (Flush - Normal Saline) 10 ml IVF Q12HR [facility] Last Admin: 08/09/17 07:55 Dose: 10 ml Sodium Chloride (Flush - Normal Saline) 10 ml IVF PRN PRN PRN Reason: Saline Flush Last Admin: 08/07/17 16:53 Dose: 10 ml Thiamine HCl (Thiamine) 100 mg PO DAILY [facility] Last Admin: 08/09/17 07:44 Dose: 100 mg
--- NOTE | 2017-08-09 16:19 | PRG ---
DATE OF SERVICE: 08/01/2017 SUBJECTIVE: He is about the same, still has problems with his breathing. OBJECTIVE: VITAL SIGNS: Temperature is 97, pulse 112, respirations 24, blood pressure 113/82, O2 sat 95% on 3 l iters. GENERAL: He is in no distress. HEENT: Unremarkable. NECK: No JVD. LUNGS: Clear, but distant breath sounds. CARDIAC: S1 and S2 regular. ABDOMEN: Soft. EXTREMITIES: No edema. IMAGING: Chest x-ray demonstrates cardiomegaly, haziness bilaterally. ASSESSMENT: 1. Status post respiratory failure, requiring mechanical ventilation. 2. Resolved metabolic acidosis. 3. Transaminitis, which has improved. 4. Renal insufficiency, which has improved. 5. Status post influenza A. 6. Chronic atrial fibrillation. PLAN: This is mainly become a rehab issue. I do not think he is strong enough to go home and would likely benefit from [facility] and/or rehab. I would suggest tapering his steroids over a coupl e of weeks and stopping antibiotics after 14 full days. I will see him less often, please notify me if there are concerns.
[2017-08-09] MEDS: cefTRIAXone\\ROCEPHIN 1 GM, Syringe 0.4 ML in Sterile Water 9.6 ML SLOW IVP SCH (16:46)
[2017-08-09 16:50] VITALS: TEMP 97.8
[2017-08-09] MEDS: Azithromycin 500 MG in Sodium Chloride 0.9% 250 ML 250 ML IVPB SCH (16:55)
--- NOTE | 2017-08-09 19:28 | ULT ---
BILATERAL LOWER EXTREMITY VENOUS ULTRASOUND WITH DOPPLER: Date: 08/09/17 HISTORY: Bilateral lower extremity swelling. COMPARISON: None. TECHNIQUE: Tillman scale, color flow, Doppler imaging, and spectral waveform analysis performed of the left and rig ht lower extremity deep venous system. FINDINGS: Bilaterally, there is compressibility, presence of flow, and augmentation in the common femoral, femo ral vein, and popliteal vein. There is flow in bilateral greater saphenous vein, profunda vein, and p osterior tibial vein. There is evidence of pulsatile flow in the left and right lower extremity deep venous system. There i s evidence of bilateral soft tissue edema. IMPRESSION: 1. No evidence of thrombus in the left or right lower extremity deep venous system. 2. Pulsatile flow in both lower extremity venous systems. Correlate for heart failure. POS: [facility]
[2017-08-09 21:00] VITALS: BP 103/74
--- NOTE | 2017-08-10 14:41 | DS ---
ATTENDING PHYSICIAN: Beck López M.D. DATE OF ADMISSION: 07/25/2017 DATE OF : 08/09/2017 ADMITTING DIAGNOSIS: Acute influenza A infection. DISCHARGE DIAGNOSIS: Acute hypoxic respiratory failure. PRIMARY CAUSE FOR : Acute hypoxic respiratory failure. SECONDARY DIAGNOSES: 1. Acute left lung pneumonia. 2. Acute blood loss anemia needing blood transfusion. 3. Acute hyponatremia. 4. Acute atrial fibrillation. 5. Acute liver enzyme elevations. 6. Acute encephalopathy. CONSULTANTS: Dr. Alonzo Huynh from Gastroenterology and Dr. Nabeel Lord from Intensive Care. HISTORY OF PRESENT ILLNESS AND HOSPITAL COURSE: This is a 76-year-old male who admitted to the [facility] with shortness of breath and bodyaches for 3-4 days and was found to have influenza A positive. The patient also noted to have a right lower lobe pneumonia on the day of admission, and for this neville son, the patient was seen by Dr. Nabeel Lord, supervisor shearing and the patient was put in the ICU. Kiesha ent also noted to have a drop in hemoglobin with guaiac positive stools, so GI was consulted and endo scopy was done which did not show any evidence of active bleeding but it did have some evidence of he morrhoids. The patient was given blood transfusion and was closely monitored. Initially, his respir atory condition improved and was transferred to the floor, but he progressively got weaker and he dev eloped aspiration pneumonia on the left lung with increased respiratory rate and worsening respirator y status. The patient also had markedly elevated liver enzymes so as GI was already on board, was cl osely monitoring and thought it could be related to venous congestion. The patient developed worseni ng mental status during this admission and was not able to participate in the physical therapy. He g ot progressively worse and his nutrition was also worse as he was not taking enough nutrition and dis cussed with the family who suggested to keep the patient on the palliative care at this time. The p atient was planned for discharge, his condition got worsened overnight and discussed with the family and suggested for comfort care and the patient on 08/09/2017 at around 8:35 p.m. Family was at the bedside when the patient and the cause of the was acute hypoxic respirat ory failure. I spent 30 minutes with this patient on the day of .
--- NOTE | 2017-08-16 16:38 | EKG ---
Test Reason : Blood Pressure : / mmHG Vent. Rate : 101 BPM Atrial Rate : 039 BPM P-R Int : 000 ms QRS Dur : 120 ms QT Int : 382 ms P-R-T Axes : 000 076 039 degrees QTc Int : 495 ms Atrial fibrillation with rapid ventricular response with premature ventricular or aberrantly conducte d complexes Right bundle branch block Abnormal ECG When compared with ECG of 29-JUL-2017 19:06, Vent. rate has increased BY 35 BPM QRS duration has decreased QT has shortened Confirmed by Jacques WEINER ([id number]) on 08/16/2017 4:37:46 PM Referred By: CHANCE Confirmed By:Jacques WEINER
== END 2017-08-09 20:35 | disposition expired | DRG 207 ==
LOC: ERS 06:20 → T4-A 12:57 → IMCU/EMU 07-29 19:19 → CCU 07-29 20:24 → 2NO 08-04 15:38 → T4-A 08-07 10:06
PROVIDERS: ADMIT Family Medicine; ATTEND Family Medicine
PROC: 0DB58ZX Excision of Esophagus, Via Natural or Artificial Opening Endoscopic, Diagnostic (ICD-10-PCS; 2017-07-27)
PROC: 0DBL8ZX Excision of Transverse Colon, Via Natural or Artificial Opening Endoscopic, Diagnostic (ICD-10-PCS; 2017-07-27)
PROC: 0DBH8ZX Excision of Cecum, Via Natural or Artificial Opening Endoscopic, Diagnostic (ICD-10-PCS; 2017-07-27)
PROC: 0DBN8ZX Excision of Sigmoid Colon, Via Natural or Artificial Opening Endoscopic, Diagnostic (ICD-10-PCS; 2017-07-27)
PROC: 0DBM8ZX Excision of Descending Colon, Via Natural or Artificial Opening Endoscopic, Diagnostic (ICD-10-PCS; 2017-07-27)
PROC: 0DBK8ZX Excision of Ascending Colon, Via Natural or Artificial Opening Endoscopic, Diagnostic (ICD-10-PCS; 2017-07-27)
PROC: 5A1955Z Respiratory Ventilation, Greater than 96 Consecutive Hours (ICD-10-PCS; principal; 2017-07-29)
PROC: 0BH17EZ Insertion of Endotracheal Airway into Trachea, Via Natural or Artificial Opening (ICD-10-PCS; 2017-07-29)
PROC: 5A1D70Z Performance of Urinary Filtration, Intermittent, Less than 6 Hours Per Day (ICD-10-PCS; 2017-07-30)
PROC: 05HM33Z Insertion of Infusion Device into Right Internal Jugular Vein, Percutaneous Approach (ICD-10-PCS; 2017-07-30)
PROC: 06HM33Z Insertion of Infusion Device into Right Femoral Vein, Percutaneous Approach (ICD-10-PCS; 2017-08-02)
PROC: 0BP1XDZ Removal of Intraluminal Device from Trachea, External Approach (ICD-10-PCS; 2017-08-03)
DX: J10.00 Influenza due to other identified influenza virus with unspecified type of pneumonia (principal); N17.0 Acute kidney failure with tubular necrosis; R65.21 Severe sepsis with septic shock; A41.9 Sepsis, unspecified organism; G93.41 Metabolic encephalopathy; E87.2 Acidosis; N18.3 Chronic kidney disease, stage 3 (moderate); J96.01 Acute respiratory failure with hypoxia; J96.02 Acute respiratory failure with hypercapnia; B37.81 Candidal esophagitis; D62 Acute posthemorrhagic anemia; E87.1 Hypo-osmolality and hyponatremia; J44.0 Chronic obstructive pulmonary disease with (acute) lower respiratory infection; K72.90 Hepatic failure, unspecified without coma; E83.42 Hypomagnesemia; E87.5 Hyperkalemia; E86.0 Dehydration; I48.2 Chronic atrial fibrillation; E03.9 Hypothyroidism, unspecified; I45.10 Unspecified right bundle-branch block; E78.5 Hyperlipidemia, unspecified; I25.10 Atherosclerotic heart disease of native coronary artery without angina pectoris; K63.5 Polyp of colon; I73.9 Peripheral vascular disease, unspecified; I12.9 Hypertensive chronic kidney disease with stage 1 through stage 4 chronic kidney disease, or unspecified chronic kidney disease; K29.40 Chronic atrophic gastritis without bleeding; K64.4 Residual hemorrhoidal skin tags; K64.8 Other hemorrhoids; E80.6 Other disorders of bilirubin metabolism; D50.9 Iron deficiency anemia, unspecified; R94.5 Abnormal results of liver function studies; K21.0 Gastro-esophageal reflux disease with esophagitis; R74.0 Nonspecific elevation of levels of transaminase and lactic acid dehydrogenase [LDH]; Z88.8 Allergy status to other drugs, medicaments and biological substances; Z66 Do not resuscitate; Z95.1 Presence of aortocoronary bypass graft; Z85.528 Personal history of other malignant neoplasm of kidney; Z85.46 Personal history of malignant neoplasm of prostate; Z86.711 Personal history of pulmonary embolism; Z90.5 Acquired absence of kidney; Z87.81 Personal history of (healed) traumatic fracture; Z79.01 Long term (current) use of anticoagulants; Z82.49 Family history of ischemic heart disease and other diseases of the circulatory system; Z80.0 Family history of malignant neoplasm of digestive organs; J69.0 Pneumonitis due to inhalation of food and vomit
CPT/HCPCS: 36415; 36416; 71045; 71046; 76705; 80048; 80053; 80202; 82140; 82150; 82274; 82550; 82553; 82805; 83605; 83690; 83735; 83880; 84100; 84484; 85007; 85025; 85027; 85610; 85730; 87040; 87340; 87804; 88305; 88312; 88313; 90935; 93005; 93010; 93306; 93970; 94002; 94003; 94640; 94644; A4216; C1751; C1752; G0257; G0365; G8978-GP-CM; G8979-GP-CK; G8996-GN-CJ; G8996-GN-CK; G8997-GN-CI; G8997-GN-CL; J0456; J0692; J0696; J1642; J1940; J2001; J2250; J2405; J2543; J2704; J2920; J3010; J3370; J3475; J7042; J7050; J7070; J7506; J7611; J7620; S0028